=== PATIENT | male | born 1935 | race Caucasian/White ===

== ENCOUNTER 2016-05-01 18:43 | Inpatient (IN) | payer MEDICARE ==
[~2016-05-01] VITALS: Ht 177.8 cm; Wt 59.3 kg
[~2016-05-01 18:43] MED LIST: CIPR500T4 PO; CO Q100C9 PO; CYAN100017 PO; FLAG500T PO; HYDR12.56 PO; PROT40TA PO
[2016-05-01 18:53] VITALS: BP 151/97; PULSE 88; RESP 16; TEMP 97.6; O2SAT 100
[2016-05-01 20:16] VITALS: BP_SYST 197; BP_SYST 205; BP_DIAS 91; BP_DIAS 96; PULSE 77; RESP 18; TEMP 97.8; O2SAT 99
[2016-05-01] MEDS ORDERED: HYDR12.57 PO (20:29)
[2016-05-01] MEDS ORDERED: HYDR-3580 PO (20:29)
[2016-05-01] MEDS ORDERED: PANT20TA2 PO (20:29)
[2016-05-01] MEDS ORDERED: ONDANSETRON HCL 4 MG/2 ML VIAL IV PUSH ONE (20:30)
[2016-05-01] MEDS ORDERED: SODIUM CHLOR 0.9% 1000 ML INJ 1,000 ML IV SCH (20:30)
--- NOTE | 2016-05-01 20:34 | PD ---
HPI Chief Complaint: General Weakness Time Seen by Provider: 20:16 Travel History International Travel<30 days: No Contact w/Intl Traveler<30days: No Traveled to known affect area: No History of Present Illness HPI This 81-year-old male is complaining of feeling weak and lightheaded. He had some loose stools which stopped about 3 days ago he has not had a bowel movement since then. He has been here twice with GI bleeds in the past but has not noted any dark stool. He has had some nausea and has not been eating well. 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 His medications include hydrochlorothiazide, Protonix and Lortab for chronic back pain related to his myopathy. PFSH Past Medical History Arthritis: Yes Heart Rhythm Problems: Yes (PVC'S, "irregular once in a while" ) Cancer: No Cardiovascular Problems: Yes (htn on meds,) High Cholesterol: Yes Diabetes: Yes (diet control) Patient Takes Glucophage: No Diminished Hearing: Yes ([place]) Diverticulitis: Yes Endocrine: No Gastrointestinal Disorders: Yes (NOW GI BLEEDING and history of this) GERD: Yes Genitourinary: Yes (BPH, URETHERAL STRICTURES, incon of urein) Hiatal Hernia: No Hypertension: Yes Immune Disorder: No Implanted Vascular Access Dvce: No Musculoskeletal: No Neurologic: Yes (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) Psychiatric: No Reproductive: No Respiratory: No Immunizations Current: Yes Tetanus Vaccination: Unknown Influenza Vaccination: No Past Surgical History Ear Surgery: No Eye Surgery: Yes (CATARACTS) Genitourinary Surgery: Yes (TURP) Oral Surgery: No Pacemaker: No Tonsillectomy: Yes Other Surgery: Yes (COLONOSCOPY, pilonidal cyst removed) Social History Alcohol Use: Yes (2-3 MIXED DRINKS A WK +1-2 BEER WK) Tobacco Use: No (QUIT 1950- smoked 1 ppd) Substance Use: No Allergies-Medications (Allergen,Severity, Reaction): Coded Allergies: No Known Allergies (Unverified , 05/01/16) Reported Meds & Prescriptions Reported Meds & Active Scripts Active Reported Hydrocodone-Acetaminophen 7.5-325 mg Tab 1 Tab PO BID PRN Hydrochlorothiazide 12.5 Mg Cap 12.5 Mg PO DAILY Pantoprazole (Pantoprazole Sodium) 20 Mg Tab 20 Mg PO DAILY Review of Systems General / Constitutional: No: Fever, Chills Eyes: No: Diploplia, Blurred Vision HENT: Positive: Lightheadedness Cardiovascular: No: Chest Pain or Discomfort, Palpitations Respiratory: No: Cough, Shortness of Breath Gastrointestinal: No: Nausea, Diarrhea Genitourinary: No: Urgency, Frequency Musculoskeletal: Positive: Myalgias, No: Arthralgias Skin: No Rash Neurologic: Positive: Weakness, Dizziness, No: Syncope, Focal Abnormalities Endocrine: No: Heat Intolerance, Cold Intolerance Hematologic/Lymphatic: No: Easy Bruising Physical Exam Narrative GENERAL: Thin male SKIN: Warm and dry. HEAD: Atraumatic. Normocephalic. EYES: Pupils equal and round. No scleral icterus. No injection or drainage. ENT: No nasal bleeding or discharge. Mucous membranes pink and moist. NECK: Trachea midline. No JVD. CARDIOVASCULAR: Regular rate and rhythm. No murmur appreciated. RESPIRATORY: No accessory muscle use. Clear to auscultation. Breath sounds equal bilaterally. GASTROINTESTINAL: Abdomen soft, non-tender, nondistended. Hepatic and splenic margins not palpable. MUSCULOSKELETAL: No obvious deformities. No clubbing. No cyanosis. No edema. NEUROLOGICAL: Awake and alert. No obvious cranial nerve deficits. Motor grossly within normal limits. Normal speech. PSYCHIATRIC: Appropriate mood and affect; insight and judgment normal. Data Data Last Documented VS Vital Signs Date Time Temp Pulse Resp B/P Pulse Ox O2 Delivery O2 Flow Rate FiO2 05/01/16 20:55 81 16 194/95 97 Room Air 05/01/16 20:16 97.8 Orders Complete Blood Count With Diff (05/01/16 20:29) Comprehensive Metabolic Panel (05/01/16 20:29) Urinalysis - C+S If Indicated (05/01/16 20:29) Sodium Chlor 0.9% 1000 Ml Inj (Ns 1000 M (05/01/16 20:30) Ondansetron Inj (Zofran Inj) (05/01/16 20:30) Electrocardiogram (05/01/16 20:34) Potassium Chloride (Kcl) (05/01/16 22:30) Admit Order (Ed Use Only) (05/01/16 22:25) Labs Laboratory Tests Test 05/01/16 05/01/16 20:44 21:07 White Blood Count 8.1 TH/MM3 Red Blood Count 5.40 MIL/MM3 Hemoglobin 15.9 GM/DL Hematocrit 47.5 % Mean Corpuscular Volume 87.9 FL Mean Corpuscular Hemoglobin 29.5 PG Mean Corpuscular Hemoglobin 33.6 % Concent Red Cell Distribution Width 13.4 % Platelet Count 184 TH/MM3 Mean Platelet Volume 9.7 FL Neutrophils (%) (Auto) 76.4 % Lymphocytes (%) (Auto) 13.4 % Monocytes (%) (Auto) 8.9 % Eosinophils (%) (Auto) 0.5 % Basophils (%) (Auto) 0.8 % Neutrophils # (Auto) 6.2 TH/MM3 Lymphocytes # (Auto) 1.1 TH/MM3 Monocytes # (Auto) 0.7 TH/MM3 Eosinophils # (Auto) 0.0 TH/MM3 Basophils # (Auto) 0.1 TH/MM3 CBC Comment DIFF FINAL Differential Comment Sodium Level 123 MEQ/L Potassium Level 3.3 MEQ/L Chloride Level 84 MEQ/L Carbon Dioxide Level 28.3 MEQ/L Anion Gap 11 MEQ/L Blood Urea Nitrogen 14 MG/DL Creatinine 0.70 MG/DL Estimat Glomerular Filtration 108 ML/MIN Rate Random Glucose 134 MG/DL Calcium Level 8.6 MG/DL Total Bilirubin 0.8 MG/DL Aspartate Amino Transf 17 U/L (AST/SGOT) Alanine Aminotransferase 21 U/L (ALT/SGPT) Alkaline Phosphatase 66 U/L Total Protein 6.2 GM/DL Albumin 3.6 GM/DL [facility] Medical Decision Making Medical Screen Exam Complete: Yes Emergency Medical Condition: Yes Medical Record Reviewed: Yes Differential Diagnosis Differential includes electrolyte imbalance, dehydration, viral syndrome Narrative Course Lab work shows a sodium of 123, potassium is 3.3. He has been on some IV saline. He is on hydrochlorothiazide home and this certainly may be she ranges hyponatremia. He'll be admitted for further evaluation Diagnosis Primary Impression: Hyponatremia Admitting Information Admitting Physician Requests: Admit Jairo Galindo MD May 01, 2016 20:34
[2016-05-01 20:55] VITALS: BP 194/95; PULSE 81; RESP 16; O2SAT 97
[2016-05-01 20:59] LABS: AUTOMATED NEUTROPHIL # 6.2 TH/MM3 (1.8-7.7); BASOPHIL # 0.1 TH/MM3 (0-0.2); BASOPHIL % 0.8 % (0.0-2.0); EOSINOPHIL % 0.5 % (0.0-4.0); HEMATOCRIT 47.5 % (39.0-51.0); HEMO FLAGS DIFF FINAL; LYMPH % 13.4 % (9.0-44.0); LYMPHOCYTE # 1.1 TH/MM3 (1.0-4.8); MEAN CELL VOLUME 87.9 FL (80.0-100.0); MEAN CORPUSCULAR HEMOGLOBIN 29.5 PG (27.0-34.0); MEAN CORPUSCULAR HGB CONC 33.6 % (32.0-36.0); MONO % 8.9 % (0.0-8.0); NEUT % 76.4 % (16.0-70.0); PLATELET COUNT 184 TH/MM3 (150-450); RED CELL DISTRIBUTION WIDTH 13.4 % (11.6-17.2); WHITE BLOOD COUNT 8.1 TH/MM3 (4.0-11.0)
[2016-05-01 22:10] LABS: ALKALINE PHOSPHATASE 66 U/L (45-117); ALT (GPT) 21 U/L (12-78); ANION GAP 11 MEQ/L (5-15); AST (GOT) 17 U/L (15-37); BICARBONATE 28.3 MEQ/L (21.0-32.0); BLOOD UREA NITROGEN 14 MG/DL (7-18); CHLORIDE 84 MEQ/L (98-107); GLOMERULAR FILTRATION RATE 108 ML/MIN (>89); POTASSIUM 3.3 MEQ/L (3.5-5.1); TOTAL BILIRUBIN ADULT 0.8 MG/DL (0.2-1.0)
[2016-05-01 22:12] LABS: SODIUM (NA) 123 MEQ/L (136-145)
[2016-05-01 22:25] VITALS: BP 188/92; PULSE 88; RESP 16; O2SAT 95
[2016-05-01] MEDS ORDERED: POTASSIUM CHLORIDE 10 MEQ CONTROLLED RELEASE TAB PO ONE (22:30)
[2016-05-01 23:38] LABS: BLOOD, URINE TRACE (NEG); GLUCOSE,URINE 500 mg/dL (NEG); KETONE, URINE 15 mg/dL (NEG); NITRITE,URINE NEG (NEG)
[2016-05-01] MEDS ORDERED: NALOXONE HCL 0.4 MG/ML AMP IV PRN (23:45)
[2016-05-01] MEDS ORDERED: ACETAMINOPHEN 325 MG TAB PO PRN (23:45)
[2016-05-01] MEDS ORDERED: ONDANSETRON HCL 4 MG/2 ML VIAL IVP PRN (23:45)
[2016-05-01] MEDS ORDERED: MAGNESIUM HYDROXIDE SUSP 30 ML CUP PO PRN (23:45)
[2016-05-01] MEDS ORDERED: SENNOSIDES 8.6 MG TAB PO PRN (23:45)
[2016-05-01] MEDS ORDERED: SODIUM CHLORIDE 0.9% FLUSH 5 ML FLUSH FLUSH PRN (23:45)
[2016-05-01 23:54] LABS: URINE COLOR YELLOW (YELLW/STRAW)
[2016-05-01 23:56] LABS: MUCUS URINE OCC /lpf (OCC); RBC, URINE 0-3 /hpf (0-3); SQUAMOUS EPITHELIAL CELL URINE 0-5 /hpf (0-5); WBC, URINE 0-2 /hpf (0-5)
[2016-05-01 23:57] LABS: COMMENT (UR) CULT NOT INDICATED; CULTURE IF INDICATED CULT NOT INDICATED; HYALINE CAST, URINE 0-2 /lpf (RARE)
[2016-05-02] VITALS (10 sets, daily range): BP systolic 142–175; BP diastolic 72–93; PULSE 61–94; RESP 16–24; TEMP 96.8–98.2; O2SAT 95–99
[2016-05-02] MEDS: SODIUM CHLOR 0.9% 1000 ML INJ 1,000 ML IV SCH ×3 (00:39→21:01)
[2016-05-02 08:02] LABS: POTASSIUM 3.6 MEQ/L (3.5-5.1)
[2016-05-02] MEDS: ENOXAPARIN SODIUM 40 MG/0.4 ML SYRINGE SQ SCH (08:02)
[2016-05-02] MEDS: SODIUM CHLORIDE 0.9% FLUSH 5 ML FLUSH FLUSH SCH ×2 (08:02→20:59)
[2016-05-02 08:05] LABS: BICARBONATE 28.1 MEQ/L (21.0-32.0)
--- NOTE | 2016-05-02 08:47 | MH ---
cc: ANDRÉS SAMAYOA MD DATE OF ADMISSION: 05/01/2016 CHIEF COMPLAINT Generalized weakness. HISTORY OF PRESENT ILLNESS This is an 81-year-old male with past medical/surgical history significant for PVCs, hypertension, hyperlipidemia, hearing problem, GI bleed in the past, GERD, BPH, urethral stricture, hiatal hernia repair, colonoscopy, pilonidal cyst removed, transurethral resection of the prostate, cataract surgery and tonsillectomy, who came to the ER at [facility] complaining of generalized weakness and being lightheaded. He had some loose stools which stopped three days ago. He said that he had a GI bleed twice in the past and noted to have dark stool. He has some nausea and has not been eating well. He has a history of myopathy related to statin use. The patient at the time of examination denies any complaint. Nurse Katelyn was present in the room. Other than that nothing significant. PAST MEDICAL/SURGICAL HISTORY As dictated above. SOCIAL HISTORY He smoked about 10 years, quit in 1950. He smoked one pack a day. He drinks alcohol on a regular basis, 1-2 beers per week. Denies any drug abuse. Lives at home with his . He is retired. FAMILY HISTORY Nothing significant. ALLERGIES No known drug allergies. MEDICATIONS 1. Lortab 7.5/325 mg p.o. b.i.d. 2. Hydrochlorothiazide 12.5 mg p.o. daily. 3. Protonix 20 mg p.o. daily. REVIEW OF SYSTEMS Review of systems is positive for generalized weakness. All other review of systems is negative. PHYSICAL EXAMINATION GENERAL: This is a 81-year-old male lying on the bed, not in acute distress. VITAL SIGNS: Temperature 96.8, heart rate 71, respiration 24, blood pressure 167/93. O2 saturation 97% on room air. HEENT: Normocephalic, atraumatic. EOMI. PERRLA. Oral mucosa moist. NECK: Supple. No visible thyromegaly or neck mass. Trachea central. CV: Regular rate and rhythm. LUNGS: Respirations clear to auscultation bilaterally. ABDOMEN: Soft, nontender. Bowel sounds audible. EXTREMITIES: No cyanosis or clubbing. Full range of motion of all extremities. NEUROLOGIC: Awake, alert and oriented x4. No focal deficit. SKIN: Warm and dry. PSYCH: The patient is cooperative. Mood and affect normal. LABORATORY DATA CBC is unremarkable except for neutrophil percentage 76.4 high. BMP is unremarkable except for sodium 123 low, increased to 130 which is still low; potassium 3.3, now 3.6; chloride 84, now 91; glucose random 115 high. Total protein 6.2, otherwise LFTs are normal. Urine examination showed glucose in the urine, trace occult blood. ASSESSMENT AND PLAN 1. This is an 81-year male who came to the ER diagnosed with generalized weakness, most likely secondary to hyponatremia and hypokalemia. The patient's sodium is improving and also potassium normalized now. The patient feels better. Will monitor the patient. 2. History of hypertension. Continue home medication. 3. History of diabetes mellitus. Continue home medication. 4. History of hearing loss. 5. History of diverticulosis and diverticulitis in the past. 6. History of hiatal hernia status post repair. 7. History of cataract surgery. 8. Transurethral resection of prostate. 9. Colonoscopy. 10.Pilonidal cyst removal. 11.DVT prophylaxis with SCD. 12.GI prophylaxis with Protonix 40 mg p.o. daily. 13.We are going to manage the patient on a daily basis and make recommendation on a daily basis. Andrés Samayoa MD EA/PERLA /8:10 AM /8:25 AM
[2016-05-02] MEDS ORDERED: ACETAMINOPHEN/HYDROcodone 325 MG/7.5 MG TAB PO PRN (09:00)
[2016-05-02] MEDS: PANTOPRAZOLE SOD 20 MG DELAYED RELEASE TAB PO SCH (11:02)
[2016-05-02] MEDS: HYDROCHLOROTHIAZIDE 12.5 MG CAP PO SCH (11:02)
[2016-05-03] VITALS: BP 146/84; PULSE 67; RESP 16; TEMP 97; O2SAT 96
[2016-05-03 05:47] LABS: AUTOMATED NEUTROPHIL # 4.7 TH/MM3 (1.8-7.7); BASOPHIL % 0.4 % (0.0-2.0); EOSINOPHIL # 0.1 TH/MM3 (0-0.4); EOSINOPHIL % 1.2 % (0.0-4.0); HEMO FLAGS DIFF FINAL; LYMPH % 18.8 % (9.0-44.0); LYMPHOCYTE # 1.3 TH/MM3 (1.0-4.8); MEAN CELL VOLUME 88.7 FL (80.0-100.0); MEAN CORPUSCULAR HGB CONC 33.8 % (32.0-36.0); MONO % 10.1 % (0.0-8.0); NEUT % 69.5 % (16.0-70.0); PLATELET COUNT 141 TH/MM3 (150-450); RED BLOOD COUNT 4.96 MIL/MM3 (4.50-5.90); RED CELL DISTRIBUTION WIDTH 13.3 % (11.6-17.2); WHITE BLOOD COUNT 6.8 TH/MM3 (4.0-11.0)
[2016-05-03 05:54] LABS: CHLORIDE 97 MEQ/L (98-107); POTASSIUM 3.6 MEQ/L (3.5-5.1); SODIUM (NA) 135 MEQ/L (136-145)
[2016-05-03 06:00] LABS: ANION GAP 9 MEQ/L (5-15); BICARBONATE 29.3 MEQ/L (21.0-32.0); BLOOD UREA NITROGEN 12 MG/DL (7-18)
[2016-05-03 06:03] LABS: ALT (GPT) 19 U/L (12-78); AST (GOT) 17 U/L (15-37); GLOMERULAR FILTRATION RATE 115 ML/MIN (>89)
[2016-05-03 06:05] LABS: TOTAL BILIRUBIN ADULT 0.9 MG/DL (0.2-1.0)
[2016-05-03 06:06] LABS: ALKALINE PHOSPHATASE 63 U/L (45-117)
[2016-05-03] MEDS: SODIUM CHLOR 0.9% 1000 ML INJ 1,000 ML IV SCH (06:10)
--- NOTE | 2016-05-03 07:32 | HHI.PR ---
Subjective History of Present Illness Patient deny any complaints d/w RN Katie no acute issue. Review of Systems Constitutional Constitutional: Fatigue, Weakness Vitals/Results Intake & Output 05/02/16 05/02/16 05/03/16 15:00 23:00 07:00 Intake Total 2515 ml 997 ml Output Total 1600 ml 900 ml Balance 915 ml 97 ml Intake Oral 1080 ml 360 ml IV Total 1435 ml 637 ml Output Urine Total 1600 ml 900 ml # Bowel Movements 0 0 Vital Signs Vital Signs Date Time Temp Pulse Resp B/P Pulse Ox O2 Delivery O2 Flow Rate FiO2 05/03/16 00:00 97.0 67 16 146/84 96 05/02/16 20:00 98.2 62 18 151/87 97 05/02/16 16:25 98.1 79 19 142/84 96 05/02/16 12:38 97.0 68 17 169/75 99 05/02/16 08:28 97.3 94 18 165/72 98 CBC/BMP: 05/03/16 0516 05/03/16 0516 Lab Results Laboratory Tests Test 05/02/16 05/03/16 07:40 05:16 Sodium Level 130 MEQ/L 135 MEQ/L Potassium Level 3.6 MEQ/L 3.6 MEQ/L Chloride Level 91 MEQ/L 97 MEQ/L Carbon Dioxide Level 28.1 MEQ/L 29.3 MEQ/L Anion Gap 11 MEQ/L 9 MEQ/L Blood Urea Nitrogen 10 MG/DL 12 MG/DL Creatinine 0.71 MG/DL 0.66 MG/DL Estimat Glomerular Filtration 106 ML/MIN 115 ML/MIN Rate Random Glucose 115 MG/DL 100 MG/DL Calcium Level 8.8 MG/DL 8.3 MG/DL White Blood Count 6.8 TH/MM3 Red Blood Count 4.96 MIL/MM3 Hemoglobin 14.9 GM/DL Hematocrit 44.0 % Mean Corpuscular Volume 88.7 FL Mean Corpuscular Hemoglobin 30.0 PG Mean Corpuscular Hemoglobin 33.8 % Concent Red Cell Distribution Width 13.3 % Platelet Count 141 TH/MM3 Mean Platelet Volume 9.2 FL Neutrophils (%) (Auto) 69.5 % Lymphocytes (%) (Auto) 18.8 % Monocytes (%) (Auto) 10.1 % Eosinophils (%) (Auto) 1.2 % Basophils (%) (Auto) 0.4 % Neutrophils # (Auto) 4.7 TH/MM3 Lymphocytes # (Auto) 1.3 TH/MM3 Monocytes # (Auto) 0.7 TH/MM3 Eosinophils # (Auto) 0.1 TH/MM3 Basophils # (Auto) 0.0 TH/MM3 CBC Comment DIFF FINAL Differential Comment Total Bilirubin 0.9 MG/DL Aspartate Amino Transf 17 U/L (AST/SGOT) Alanine Aminotransferase 19 U/L (ALT/SGPT) Alkaline Phosphatase 63 U/L Total Protein 5.8 GM/DL Albumin 3.3 GM/DL Physical Exam General General Appearance: Well Developed, Well Nourished, No Acute Distress, Comfortable Eyes Eye Exam: Pupils Equal, Pupils Reactive, Sclera White, Extraocular Movement Intact Throat Throat Exam: Oral Mucosa [place] & Moist, Oral Pharynx Normal Neck Neck Exam: Neck Supple, Trachea Midline Pulmonary Resp Exam: Clear Bilaterally, Breath Sounds Equal, No Distress Cardiology CV Exam: Regular, Normal Sinus Rhythm Gastrointestinal/Abdomen GI Exam: Soft, Non-Tender, Bowel Sounds Present Musculoskeletal MS Exam: Normal Tone Integumentary Skin Exam: Clear, Warm, Dry, Intact, Normal Turgor Extremeties Extremities Exam: No Edema Neurologic Neuro Exam: Alert, Awake, Oriented, Speech Clear, Moving All Extremities, No Focal Deficits VTE Prophylaxis VTE Prophylaxis Device: SCDs PUD Prophylasis PUD Prophylaxis: Protonix Assessment/Plan Assessment/Plan ASSESSMENT AND PLAN 1. This is an 81-year male who came to the ER diagnosed with generalized weakness, most likely secondary to hyponatremia and hypokalemia. The patient's sodium is almost normal and also potassium normalized now. The patient feels better. Will monitor the patient. 2. History of hypertension. Continue home medication. 3. History of diabetes mellitus. Continue home medication. 4. History of hearing loss. 5. History of diverticulosis and diverticulitis in the past. 6. History of hiatal hernia status post repair. 7. History of cataract surgery. 8. Transurethral resection of prostate. 9. Colonoscopy. 10.Pilonidal cyst removal. 11.DVT prophylaxis with SCD. 12.GI prophylaxis with Protonix 40 mg p.o. daily. ok to dc home today. f/u with PCP 1 week. condition at discharge good activity as tolerated. diet cardiac. medicine see discharge medicine list. Discussed Condition with: Patient Andrés Zuñiga MD May 03, 2016 07:32
[2016-05-03 08:00] VITALS: BP 156/80; PULSE 63; RESP 20; TEMP 96.4; O2SAT 97
[2016-05-03] MEDS: SODIUM CHLORIDE 0.9% FLUSH 5 ML FLUSH FLUSH SCH (08:46)
[2016-05-03] MEDS: ENOXAPARIN SODIUM 40 MG/0.4 ML SYRINGE SQ SCH (08:46)
[2016-05-03] MEDS: HYDROCHLOROTHIAZIDE 12.5 MG CAP PO SCH (08:46)
[2016-05-03] MEDS: PANTOPRAZOLE SOD 20 MG DELAYED RELEASE TAB PO SCH (08:46)
--- NOTE | 2016-05-08 14:44 | EKG ---
Date Performed: 05/01/2016 Time Performed: 20:42:06 PTAGE: 81 years EKG: Sinus rhythm with PVC(s) IV conduction defect Inferior infarct - age undetermined Compared to prior tracing no si gnificant change Abnormal ECG PREVIOUS TRACING : 10/29/2014 19.22 DOCTOR: Florencio Horowitz Interpretating Date/Time 05/08/2016 14:43:32
[2016-07-07] MEDS ORDERED: HYDR-3580 PO (11:32)
[2016-07-25] MEDS ORDERED: HYDR-3580 PO (07:14)
[2016-08-04] MEDS ORDERED: PANT20TA2 PO (16:30)
[2016-08-10] MEDS ORDERED: HYDR-3583 PO (16:06)
[2016-08-10] MEDS ORDERED: BLOOD GLUCOSE T1 TES (16:14)
[2016-08-31] MEDS ORDERED: HYDR-3583 PO (14:02)
== END 2016-05-03 11:45 | disposition home or self-care (01) | DRG 641 ==
LOC: PHED 18:43 → PHEDA 22:26 → PHEDH 05-02 02:26 → PH3A 05-02 05:48
PROVIDERS: ADMIT Family Medicine; ATTEND Family Medicine
DX: E87.1 Hypo-osmolality and hyponatremia (principal); E11.9 Type 2 diabetes mellitus without complications; I10 Essential (primary) hypertension; E87.6 Hypokalemia; G89.29 Other chronic pain; M54.9 Dorsalgia, unspecified; M19.90 Unspecified osteoarthritis, unspecified site; E78.00 Pure hypercholesterolemia, unspecified; H91.90 Unspecified hearing loss, unspecified ear; K21.9 Gastro-esophageal reflux disease without esophagitis; N40.0 Benign prostatic hyperplasia without lower urinary tract symptoms; Z87.891 Personal history of nicotine dependence; E78.5 Hyperlipidemia, unspecified
CPT/HCPCS: 80048; 80053; 81001; 85025; 93005; 96361; 96374; J1650; J2405; J7030

== ENCOUNTER 2016-07-17 09:24 | Emergency (ER) | payer MEDICARE ==
[~2016-07-17] VITALS: Ht 177.8 cm; Wt 61.0 kg
[~2016-07-17 09:24] MED LIST changes: -CIPR500T4 PO; -CO Q100C9 PO; -CYAN100017 PO; -FLAG500T PO; +HYDR-3580 PO; -HYDR12.56 PO; +HYDR12.57 PO; +PANT20TA2 PO; -PROT40TA PO
[2016-07-17 09:30] VITALS: BP 148/102; PULSE 93; RESP 16; TEMP 97.7; O2SAT 99
--- NOTE | 2016-07-17 10:01 | PD ---
HPI Chief Complaint: Complaint Time Seen by Provider: 09:59 Travel History International Travel<30 days: No Contact w/Intl Traveler<30days: No Traveled to known affect area: No History of Present Illness HPI This patient has long-standing history of urethral stricture. He gets urethral dilations about every 6 months, the last time he had it was May 2016. He is able to urinate but has to force out the urine. No hematuria or pain. Patient came here out of frustration because he is awaiting a urology referral that hasn't happened. He has a referral to a urologist Dr. Barragan. Symptoms severity is moderate. PFSH Past Medical History Arthritis: Yes Heart Rhythm Problems: Yes (PVC'S) Cancer: No Cardiovascular Problems: Yes (htn on meds,) High Cholesterol: Yes Diabetes: Yes (diet control) Patient Takes Glucophage: No Diminished Hearing: [place] ([place]) Diverticulitis: Yes Endocrine: No GERD: Yes Genitourinary: Yes (BPH, URETHERAL STRICTURES) Hiatal Hernia: No Hypertension: Yes Immune Disorder: No Implanted Vascular Access Dvce: No Musculoskeletal: No Neurologic: Yes (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) Psychiatric: No Reproductive: No Respiratory: No Immunizations Current: Yes Past Surgical History Ear Surgery: No Eye Surgery: Yes (CATARACTS) Genitourinary Surgery: Yes (TURP) Oral Surgery: No Pacemaker: No Tonsillectomy: Yes Other Surgery: Yes (COLONOSCOPY, pilonidal cyst removed) Social History Alcohol Use: Yes (OCC) Tobacco Use: No (QUIT 1950- smoked 1 ppd) Substance Use: No Allergies-Medications (Allergen,Severity, Reaction): Coded Allergies: No Known Allergies (Unverified , 07/17/16) Reported Meds & Prescriptions Reported Meds & Active Scripts Active Hydrocodone-Acetaminophen 7.5-325 mg Tab 1 Tab PO BID PRN Reported Hydrochlorothiazide 12.5 Mg Cap 12.5 Mg PO DIRECTED Pantoprazole (Pantoprazole Sodium) 20 Mg Tab 20 Mg PO DAILY Review of Systems General / Constitutional: No: Fever HENT: No: Headaches Cardiovascular: No: Chest Pain or Discomfort Respiratory: No: Cough Physical Exam Narrative GASTROINTESTINAL: Abdomen soft, non-tender, nondistended. Positive bowel sounds. No hepato-splenomegaly, or palpable masses. No guarding. I don't sense distention in the suprapubic region SKIN: Focused skin assessment reveals no rash or ulcers. Skin is warm and dry. Palpation shows no induration or nodules. Psych: Normal mood and affect. Normal insight and judgment. Data Data Last Documented VS Vital Signs Date Time Temp Pulse Resp B/P Pulse Ox O2 Delivery O2 Flow Rate FiO2 07/17/16 09:30 97.7 93 16 148/102 99 MDM Medical Decision Making Medical Screen Exam Complete: Yes Emergency Medical Condition: Yes Medical Record Reviewed: Yes Differential Diagnosis Urethral stricture, urinary retention, bladder CA Narrative Course I have reviewed the patient's electronic medical record. He brought a lot of paper medical records which I reviewed his well including urethral dilation records from October 2015 Bladder scan reveals 197 mL of urine He is not have urinary retention. He is able to produce a strain but it is weak and he has to force it out but this is not unusual for him Patient should call his primary physician today and ask about the urology referral. He should also call the urologist and find out if he can be seen. Diagnosis Primary Impression: Urethral stricture Qualified Code: N35.9 - Urethral stricture, unspecified stricture type Additional Instructions: Call primary care and urologist to figure out when he can be seen by them Med/Other Pt SpecificInfo: Other Disposition: 01 DISCHARGE HOME Condition: Stable Jorgito Mckinney MD July 17, 2016 10:01
[2016-07-25] MEDS ORDERED: HYDR-3580 PO (07:14)
[2016-08-04] MEDS ORDERED: PANT20TA2 PO (16:30)
[2016-08-10] MEDS ORDERED: HYDR-3583 PO (16:06)
[2016-08-10] MEDS ORDERED: BLOOD GLUCOSE T1 TES (16:14)
[2016-08-31] MEDS ORDERED: HYDR-3583 PO (14:02)
== END 2016-07-17 10:41 | disposition home or self-care (01) ==
LOC: PHED 09:24
DX: N35.9 Urethral stricture, unspecified (principal); M19.90 Unspecified osteoarthritis, unspecified site; I10 Essential (primary) hypertension; K21.9 Gastro-esophageal reflux disease without esophagitis; E78.00 Pure hypercholesterolemia, unspecified; E11.9 Type 2 diabetes mellitus without complications; Z79.899 Other long term (current) drug therapy; Z87.891 Personal history of nicotine dependence
CPT/HCPCS: 99283

== ENCOUNTER 2016-08-23 12:12 | Inpatient (IN) | payer MEDICARE ==
[2016-08-23] VITALS (8 sets, daily range): BP systolic 119–177; BP diastolic 62–96; PULSE 73–140; RESP 16–18; TEMP 98–101.2; O2SAT 94–98
[~2016-08-23] VITALS: Ht 167.6 cm; Wt 61.0 kg
[~2016-08-23 12:12] MED LIST changes: +BLOOD GLUCOSE T1 TES; -HYDR-3580 PO; +HYDR-3583 PO
[2016-08-23] MEDS ORDERED: PIPERACIL-TAZO 4.5 GM PREMIX 100 ML IV STA (12:27)
[2016-08-23] MEDS ORDERED: ACETAMINOPHEN 325 MG TAB PO ONE (12:30)
[2016-08-23] MEDS ORDERED: SODIUM CHLOR 0.9% 1000 ML INJ 1,000 ML IV ONE ×2 (12:30→13:30)
[2016-08-23] MEDS ORDERED: VANCOMYCIN INJ 1,000 MG in SODIUM CHLOR 0.9% 250 ML INJ 250 ML IV STA (12:31)
--- NOTE | 2016-08-23 12:42 | PD ---
HPI Chief Complaint: Altered Mental Status Time Seen by Provider: 12:19 Travel History International Travel<30 days: No Contact w/Intl Traveler<30days: No Traveled to known affect area: No History of Present Illness HPI This 81-year-old male is brought in because of a shaking chill. He has a history of a urethral stricture. He had cystoscopy and his stricture dilated Sunday. Earlier today he started having a shaking chill. He developed fever. He has not been coughing. He has a history of GI bleed 2. He has weakness in his legs from statin use. He has chronic back pain. He has no history of heart disease. PFSH Past Medical History Arthritis: Yes Heart Rhythm Problems: Yes (PVC'S) Cancer: No Cardiovascular Problems: Yes (htn on meds,) High Cholesterol: Yes Diabetes: Yes (Borderline ) Diminished Hearing: Yes ([place]) Diverticulitis: Yes Endocrine: No GERD: Yes Genitourinary: Yes (BPH, URETHERAL STRICTURES) Hiatal Hernia: No Hypertension: Yes Immune Disorder: No Implanted Vascular Access Dvce: No Musculoskeletal: No Neurologic: Yes (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) Psychiatric: No Reproductive: No Respiratory: No Immunizations Current: Yes Past Surgical History Ear Surgery: No Eye Surgery: Yes (CATARACTS) Genitourinary Surgery: Yes (TURP) Oral Surgery: No Pacemaker: No Tonsillectomy: Yes Other Surgery: Yes (COLONOSCOPY, pilonidal cyst removed) Social History Alcohol Use: Yes (OCC) Tobacco Use: No (QUIT 1950- smoked 1 ppd) Substance Use: No Allergies-Medications (Allergen,Severity, Reaction): Coded Allergies: No Known Allergies (Unverified , 08/23/16) Reported Meds & Prescriptions Reported Meds & Active Scripts Active Blood Glucose Test Strips Strips Strip 1 Ea .ROUTE DIRECTED Hydrocodone-Acetaminophen 10-325 mg Tab 1 Tab PO BID PRN Pantoprazole (Pantoprazole Sodium) 20 Mg Tab 20 Mg PO DAILY Reported Hydrochlorothiazide 12.5 Mg Cap 12.5 Mg PO DIRECTED Review of Systems General / Constitutional: Positive: Fever, Chills Eyes: No: Diploplia, Blurred Vision HENT: No: Headaches, Vertigo Cardiovascular: No: Chest Pain or Discomfort, Palpitations Respiratory: No: Cough, Shortness of Breath Gastrointestinal: No: Nausea, Vomiting Genitourinary: Positive: Dysuria Musculoskeletal: No: Myalgias, Arthralgias Skin: No Rash Neurologic: Positive: Weakness Psychiatric: No: Anxiety Endocrine: No: Heat Intolerance Hematologic/Lymphatic: No: Easy Bruising Physical Exam Exam Limitations: Psychotic Narrative GENERAL: Well-developed male. Temp is 101.2. Heart rate 140 SKIN: Focused skin assessment warm/dry. HEAD: Atraumatic. Normocephalic. EYES: Pupils equal and round. No scleral icterus. No injection or drainage. ENT: No nasal bleeding or discharge. Mucous membranes pink and moist. NECK: Trachea midline. No JVD. CARDIOVASCULAR: Rapid Regular rate and rhythm. No murmur appreciated. RESPIRATORY: No accessory muscle use. Clear to auscultation. Breath sounds equal bilaterally. GASTROINTESTINAL: Abdomen soft, non-tender, nondistended. Hepatic and splenic margins not palpable. There is some suprapubic distention MUSCULOSKELETAL: No obvious deformities. No clubbing. No cyanosis. No edema. NEUROLOGICAL: Awake and alert. No obvious cranial nerve deficits. Motor grossly within normal limits. Normal speech. PSYCHIATRIC: Appropriate mood and affect; insight and judgment normal. Data Data Last Documented VS Vital Signs Date Time Temp Pulse Resp B/P Pulse Ox O2 Delivery O2 Flow Rate FiO2 08/23/16 13:45 99.1 08/23/16 13:30 90 18 123/69 95 Room Air Orders Complete Blood Count With Diff (08/23/16 12:27) Comprehensive Metabolic Panel (08/23/16 12:27) Lactic Acid Sepsis Protocol (08/23/16 12:27) Urinalysis - C+S If Indicated (08/23/16 12:27) Blood Culture (08/23/16 12:27) Chest, Single Ap (08/23/16 12:27) Blood Glucose (08/23/16 12:27) Ecg Monitoring (08/23/16 12:27) Iv Access Insert/Monitor (08/23/16 12:27) Oximetry (08/23/16 12:27) Oxygen Administration (08/23/16 12:27) Piperacil-Tazo 4.5 Gm Premix (Zosyn 4.5 (08/23/16 12:27) Sodium Chlor 0.9% 1000 Ml Inj (Ns 1000 M (08/23/16 12:30) Acetaminophen (Tylenol) (08/23/16 12:30) Vancomycin Inj (Vancomycin Inj) (08/23/16 12:31) Urinary Catheter Insert/Apply (08/23/16 12:45) Urine Culture (08/23/16 12:35) Sodium Chlor 0.9% 1000 Ml Inj (Ns 1000 M (08/23/16 13:30) Labs Laboratory Tests Test 08/23/16 08/23/16 12:30 12:35 White Blood Count 8.7 TH/MM3 Red Blood Count 4.95 MIL/MM3 Hemoglobin 15.0 GM/DL Hematocrit 43.9 % Mean Corpuscular Volume 88.8 FL Mean Corpuscular Hemoglobin 30.4 PG Mean Corpuscular Hemoglobin 34.2 % Concent Red Cell Distribution Width 12.8 % Platelet Count 114 TH/MM3 Mean Platelet Volume 9.0 FL Neutrophils (%) (Auto) 89.1 % Lymphocytes (%) (Auto) 9.2 % Monocytes (%) (Auto) 1.4 % Eosinophils (%) (Auto) 0.1 % Basophils (%) (Auto) 0.2 % Neutrophils # (Auto) 7.8 TH/MM3 Lymphocytes # (Auto) 0.8 TH/MM3 Monocytes # (Auto) 0.1 TH/MM3 Eosinophils # (Auto) 0.0 TH/MM3 Basophils # (Auto) 0.0 TH/MM3 CBC Comment DIFF FINAL Differential Comment Sodium Level 134 MEQ/L Potassium Level 3.7 MEQ/L Chloride Level 95 MEQ/L Carbon Dioxide Level 28.6 MEQ/L Anion Gap 10 MEQ/L Blood Urea Nitrogen 15 MG/DL Creatinine 0.81 MG/DL Estimat Glomerular Filtration 91 ML/MIN Rate Random Glucose 159 MG/DL Lactic Acid Level 2.9 mmol/L Calcium Level 9.0 MG/DL Total Bilirubin 1.0 MG/DL Aspartate Amino Transf 22 U/L (AST/SGOT) Alanine Aminotransferase 16 U/L (ALT/SGPT) Alkaline Phosphatase 84 U/L Total Protein 6.9 GM/DL Albumin 4.0 GM/DL Urine Collection Type CATH Urine Color YELLOW Urine Turbidity MOD Urine pH 6.0 Urine Specific [place] 1.018 Urine Protein 30 mg/dL Urine Glucose (UA) 1000 OR GREATER mg/dL Urine Ketones 15 mg/dL Urine Occult Blood LARGE Urine Nitrite NEG Urine Bilirubin NEG Urine Leukocyte Esterase TRACE Urine RBC 50-99 /hpf Urine WBC 25-49 /hpf Urine WBC Clumps FEW Urine Bacteria MANY /hpf Microscopic Urinalysis Comment CULTURE INDICATED MDM Medical Decision Making Medical Screen Exam Complete: Yes Emergency Medical Condition: Yes Medical Record Reviewed: Yes Differential Diagnosis Differential includes pneumonia, UTI, sepsis Narrative Course Urine does show infection. Lactate is elevated at 2.9. White count is normal. Case discussed with Dr. Almanza who recommends leaving the catheter in overnight. He will be admitted Sepsis Criteria SIRS Criteria (2 or more): Temp > 100.9 or < 96.8, Heart rate over 90 Sepsis Criteria (SIRS+source): Infect source susp/known Severe Sepsis (+one): Lactate >2 Diagnosis Primary Impression: Urinary tract infection Qualified Code: N39.0 - Urinary tract infection without hematuria, site unspecified Additional Impression: Sepsis Qualified Code: A41.9 - Sepsis, due to unspecified organism Admitting Information Admitting Physician Requests: Admit Jairo Galindo MD Aug 23, 2016 12:42
[2016-08-23 12:48] LABS: AUTOMATED NEUTROPHIL # 7.8 TH/MM3 (1.8-7.7); BASOPHIL % 0.2 % (0.0-2.0); EOSINOPHIL % 0.1 % (0.0-4.0); HEMATOCRIT 43.9 % (39.0-51.0); HEMO FLAGS DIFF FINAL; LYMPH % 9.2 % (9.0-44.0); LYMPHOCYTE # 0.8 TH/MM3 (1.0-4.8); MEAN CELL VOLUME 88.8 FL (80.0-100.0); MEAN CORPUSCULAR HEMOGLOBIN 30.4 PG (27.0-34.0); MEAN CORPUSCULAR HGB CONC 34.2 % (32.0-36.0); MONO % 1.4 % (0.0-8.0); NEUT % 89.1 % (16.0-70.0); PLATELET COUNT 114 TH/MM3 (150-450); RED BLOOD COUNT 4.95 MIL/MM3 (4.50-5.90); RED CELL DISTRIBUTION WIDTH 12.8 % (11.6-17.2); WHITE BLOOD COUNT 8.7 TH/MM3 (4.0-11.0)
[2016-08-23 12:53] LABS: BLOOD, URINE LARGE (NEG); KETONE, URINE 15 mg/dL (NEG); NITRITE,URINE NEG (NEG)
[2016-08-23 12:56] LABS: CHLORIDE 95 MEQ/L (98-107); POTASSIUM 3.7 MEQ/L (3.5-5.1); SODIUM (NA) 134 MEQ/L (136-145)
[2016-08-23 13:00] LABS: ANION GAP 10 MEQ/L (5-15); BICARBONATE 28.6 MEQ/L (21.0-32.0); BLOOD UREA NITROGEN 15 MG/DL (7-18)
[2016-08-23 13:02] LABS: GLUCOSE,URINE 1000 OR GREATER mg/dL (NEG)
--- NOTE | 2016-08-23 13:02 | RADRPT ---
EXAM DATE/TIME: 08/23/2016 12:47 [facility] COMPARISON: No previous studies available for comparison. INDICATIONS : Fever, chills, post cystoscopy 3 days ago. MEDICAL HISTORY : Hypertension. Hypercholesterolemia. Gastrointestinal bleed. Diverticulitis. Diabetic. Arthritis. SURGICAL HISTORY : Tonsillectomy. Cystoscopy & urethreal dilitation. ENCOUNTER: Initial ACUITY: 1 day PAIN SCORE: 0/10 LOCATION: chest FINDINGS: A single view of the chest demonstrates the lungs to be symmetrically aerated without evidence of mas s, infiltrate or effusion. The cardiomediastinal contours are unremarkable. Osseous structures are intact. CONCLUSION: 1. No acute cardiopulmonary disease. Amilcar Lozano MD on August 23, 2016 at 12:58 Board Certified Radiologist. This report was verified electronically.
[2016-08-23 13:03] LABS: ALT (GPT) 16 U/L (12-78); AST (GOT) 22 U/L (15-37); GLOMERULAR FILTRATION RATE 91 ML/MIN (>89)
[2016-08-23 13:06] LABS: ALKALINE PHOSPHATASE 84 U/L (45-117)
[2016-08-23 13:06] LABS: METHOD OF COLLECTION CATH; URINE COLOR YELLOW (YELLW/STRAW)
[2016-08-23 13:07] LABS: BACTERIA, URINE MANY /hpf; COMMENT (UR) CULTURE INDICATED; CULTURE IF INDICATED CULTURE INDICATED
[2016-08-23] MEDS: SODIUM CHLOR 0.9% 1000 ML INJ 1,000 ML IV SCH (14:06)
[2016-08-23] MEDS ORDERED: ONDANSETRON HCL 4 MG/2 ML VIAL IVP PRN (14:15)
[2016-08-23] MEDS ORDERED: NALOXONE HCL 0.4 MG/ML AMP IV PRN (14:15)
[2016-08-23] MEDS ORDERED: ACETAMINOPHEN 325 MG TAB PO PRN ×2 (14:15)
[2016-08-23] MEDS ORDERED: SODIUM CHLORIDE 0.9% FLUSH 10 ML FLUSH IV FLUSH PRN (14:15)
[2016-08-23] MEDS ORDERED: MAGNESIUM HYDROXIDE SUSP 30 ML CUP PO PRN (14:15)
[2016-08-23] MEDS ORDERED: ENALAPRILAT 2.5 MG/2 ML VIAL IV PUSH PRN (14:15)
[2016-08-23] MEDS ORDERED: RESP: ALBUTEROL 2.5 MG/IPRATROPIUM 0.5 MG NEB (PRN) NEB (14:30)
[2016-08-23 14:43] LABS: LACTIC ACID GHOST NOT REPORTABLE
--- NOTE | 2016-08-23 14:43 | HHI.HP ---
[facility] Service [facility] Primary Care Physician Ever Harding MD Admission Diagnosis UTI, SEPSIS Diagnoses: (1) Severe sepsis Diagnosis: Principal (2) Complicated urinary tract infection Diagnosis: Principal (3) Lactic acid acidosis Diagnosis: Principal Chief Complaint: Fever and rigors Travel History International Travel<30 Days: No Contact w/Intl Traveler <30 Da: No Traveled to Known Affected Are: No Sepsis Criteria SIRS Criteria (2 or more): Temp > 100.9 or < 96.8, Heart rate over 90 Sepsis Criteria (SIRS+source): Infect source susp/known Severe Sepsis (+one): Lactate >2 Criteria Outcome: Meets severe sepsis criteria History of Present Illness Written by Jorgito Bowling, acting as scribe for Dr. Hutchison on 08/23/16 at 15: 01. 81 year-old male with known history of hypertension, hyperlipidemia, diet-controlled diabetes, urethral stenosis, gastroesophageal reflux who presented to the hospital because of fever and rigors. Patient is in normal state of health when he went and had urological procedure done on Sunday to include cystoscopy with urethral dilatation. As indicated that this was his 6 time having this procedure done. stated that he only had to have mild stricture release and was discharged home without a So this time. Patient had been doing well with urinating. He has not had any significant dysuria, hesitancy, he has had a good stream. This morning he woke up and had a fever and had rigors. They contacted their urology office and notified them that they were going to the hospital for evaluation. Patient had workup performed in emergency department found to have severe sepsis by criteria secondary to complicated urinary tract infection. Is recommended that patient be admitted for further evaluation management. At the time evaluating the patient he states that he is feeling much better already since he's gotten IV antibiotics and IV fluids. They are anticipating going home tomorrow if he continues to improve. Review of Systems Constitutional: COMPLAINS OF: Fever, Chills, DENIES: Diaphoretic episodes, Fatigue, Weight gain, Weight loss, Dizziness, Change in appetite, Night Sweats Endocrine: DENIES: Heat/cold intolerance, Polydipsia, Polyuria, Polyphagia Eyes: DENIES: Blurred vision, Diplopia, Eye inflammation, Eye pain, Vision loss , Double Vision Ears, nose, mouth, throat: DENIES: Vertigo, Nasal discharge, Throat pain, Ear Pain, Running Nose, Sinus Pain Respiratory: DENIES: Apneas, Cough, Snoring, Wheezing, Hemoptysis, Sputum production, Shortness of breath Cardiovascular: COMPLAINS OF: PND, DENIES: Chest pain, Palpitations, Syncope, Dyspnea on Exertion, Lower Extremity Edema, Orthopnea Gastrointestinal: DENIES: Abdominal pain, Black stools, Bloody stools, Constipation, Diarrhea, Nausea, Vomiting, Difficulty Swallowing, Anorexia Genitourinary: DENIES: Sexual dysfunction, Urinary frequency, Urinary incontinence, Urgency, Hematuria, Dysuria, Nocturia, Penile Discharge, Testicular Pain, Testicular Swelling Musculoskeletal: DENIES: Joint pain, Muscle aches, Stiffness, Joint Swelling, Back pain, Neck pain Integumentary: DENIES: Abnormal pigmentation, Nail changes, Pruritus, Rash Hematologic/lymphatic: DENIES: Bruising, Lymphadenopathy Immunologic/allergic: DENIES: Eczema, Urticaria Neurologic: DENIES: Abnormal gait, Headache, Localized weakness, Paresthesias, Seizures, Speech Problems, Tremor, Poor Balance Psychiatric: DENIES: Anxiety, Confusion, Mood changes, Depression, Hallucinations, Agitation, Suicidal Ideation, Homicidal Ideation, Delusions Past Family Social History Past Medical History Hypertension Hyperlipidemia Diabetes Benign prostatic hypertrophy Chronic back pain History of Lyme's disease Gastroesophageal reflux History GI bleed Past Surgical History Tonsillectomy Recent cystoscopy with urethral dilatation TURP Circumcision EGD Reported Medications Reported Meds & Active Scripts Active Blood Glucose Test Strips Strips Strip 1 Ea .ROUTE DIRECTED Hydrocodone-Acetaminophen 10-325 mg Tab 1 Tab PO BID PRN Pantoprazole (Pantoprazole Sodium) 20 Mg Tab 20 Mg PO DAILY Reported Hydrochlorothiazide 12.5 Mg Cap 12.5 Mg PO DIRECTED Allergies: Coded Allergies: No Known Allergies (Unverified , 08/23/16) Family History Reviewed and unknown due to parents when he was early age Social History Patient quit smoking in 1950, prior to that he smoked 3 pack a cigarettes a day for 35 years while he was in the . He drinks alcohol rarely. Denies any illicit drugs Physical Exam Vital Signs Vital Signs Date Time Temp Pulse Resp B/P Pulse Ox O2 Delivery O2 Flow Rate FiO2 08/23/16 14:35 82 16 119/62 96 Room Air 08/23/16 13:45 99.1 08/23/16 13:30 90 18 123/69 95 Room Air 08/23/16 13:00 101.2 105 16 177/96 94 Room Air 08/23/16 12:43 177/96 08/23/16 12:43 94 Room Air 08/23/16 12:43 125 94 Room Air 08/23/16 12:13 101.2 140 18 96 Physical Exam GENERAL: Well-developed, well-nourished, in no acute distress. alert and orientated HEENT: Head is normocephalic without any lesions or masses noted. Facial features are symmetric. Eyes: Pupils equal round reactive to light. Extraocular muscles are intact. Conjunctivae were clear. Oropharyngeal: Pharynx without any erythema edema. Tongue is midline without deviation. Buccal mucosa is moist without any masses or lesions NECK: Supple without any masses. Trachea midline no deviation. No JVD, no bruits are appreciated CARDIAC: Regular rhythm, regular rate. S1/S2 are heard. 2 or 6 ejection murmur , no gallops or rubs. LUNGS: Clear to auscultation bilaterally. No wheeze, rhonchi or rales. No use of accessory muscles on inspiration or expiration. ABDOMEN: Soft, nontender. Nondistended. Bowel sounds heard in all 4 quadrants. No organomegaly or masses. Negative rebound, negative guarding, So in place with dark color urine EXTREMITIES: No edema, pulses are equal bilaterally. No cyanosis or clubbing NEUROLOGY: Mood and affect appear appropriate. Cranial nerves II through XII grossly intact. Muscle strength 5/5 in upper and lower extremities bilaterally. Deep tendon reflexes are 2+ in upper and lower extremities bilaterally. Laboratory Laboratory Tests Test 08/23/16 08/23/16 12:30 12:35 White Blood Count 8.7 Red Blood Count 4.95 Hemoglobin 15.0 Hematocrit 43.9 Mean Corpuscular Volume 88.8 Mean Corpuscular Hemoglobin 30.4 Mean Corpuscular Hemoglobin 34.2 Concent Red Cell Distribution Width 12.8 Platelet Count 114 Mean Platelet Volume 9.0 Neutrophils (%) (Auto) 89.1 Lymphocytes (%) (Auto) 9.2 Monocytes (%) (Auto) 1.4 Eosinophils (%) (Auto) 0.1 Basophils (%) (Auto) 0.2 Neutrophils # (Auto) 7.8 Lymphocytes # (Auto) 0.8 Monocytes # (Auto) 0.1 Eosinophils # (Auto) 0.0 Basophils # (Auto) 0.0 CBC Comment DIFF FINAL Differential Comment Sodium Level 134 Potassium Level 3.7 Chloride Level 95 Carbon Dioxide Level 28.6 Anion Gap 10 Blood Urea Nitrogen 15 Creatinine 0.81 Estimat Glomerular Filtration 91 Rate Random Glucose 159 Lactic Acid Level 2.9 Calcium Level 9.0 Total Bilirubin 1.0 Aspartate Amino Transf 22 (AST/SGOT) Alanine Aminotransferase 16 (ALT/SGPT) Alkaline Phosphatase 84 Total Protein 6.9 Albumin 4.0 Urine Collection Type CATH Urine Color YELLOW Urine Turbidity MOD Urine pH 6.0 Urine Specific [place] 1.018 Urine Protein 30 Urine Glucose (UA) 1000 OR GREATER Urine Ketones 15 Urine Occult Blood LARGE Urine Nitrite NEG Urine Bilirubin NEG Urine Leukocyte Esterase TRACE Urine RBC 50-99 Urine WBC 25-49 Urine WBC Clumps FEW Urine Bacteria MANY Microscopic Urinalysis Comment CULTURE INDICATED Date/Time Procedure Status Source Growth 08/23/16 12:35 Urine Culture Received Urine Catheterized Urine Pending 08/23/16 12:35 Aerobic Blood Culture Received Blood Peripheral Pending 08/23/16 12:35 Anaerobic Blood Culture Received Blood Peripheral Pending Result Diagram: 08/23/16 1230 08/23/16 1230 Imaging Last Impressions Chest X-Ray 08/23/16 1227 Signed Impressions: Service Date/Time: Tuesday, August 23, 2016 12:47 - CONCLUSION: 1. No acute cardiopulmonary disease. Amilcar Lozano MD Septic Shock Reassessment Heart: Regular rate and rhythm Lungs: Clear Skin: Warm, Moist Peripheral Pulses: Bounding Right Radial Bounding Left Radial Capillary Refill: Brisk, <2 seconds Assessment and Plan Problem List: (1) Severe sepsis ICD Code: A41.9 Status: Acute (2) Complicated urinary tract infection ICD Code: N39.0 Status: Acute (3) Lactic acid acidosis ICD Code: E87.2 Status: Acute Assessment and Plan 81-year-old man with Severe sepsis Patient meets criteria on admission with fever, tachycardia, complicated urinary tract infection, lactic acid acidosis Patient started on Zosyn empirically Blood cultures and urine culture are pending Continue trend lactic acid level Complicated urinary tract infection, secondary to recent urological procedure with urethral dilatation Continue antibiotics as above ER physician discussed with urology who recommended to maintain So in place Follow-up with urology in outpatient setting Hypertension Home medications have been continued As needed clonidine and Vasotec Diabetes, diet controlled Continue monitor glucoses start sliding scale insulin if needed DVT prevention Sequential compression devices This note was transcribed by yolanda Bowling. I, Dr. Saúl Hutchison personally performed the history, physical exam, and medical decision making; and confirmed the accuracy of the information in the transcribed note. Authenticated by Dr. Saúl Hutchison on 08/23/16 at 15:01. Code Status Full code Discussed Condition With Patient, ED physician Physician Certification 2 Midnight Certification Type: Admission for Inpatient Services Order for Inpatient Services The services are ordered in accordance with Medicare regulations or non- Medicare payer requirements, as applicable. In the case of services not specified as inpatient-only, they are appropriately provided as inpatient services in accordance with the 2-midnight benchmark. Estimated LOS (days): 2 days is the estimated time the patient will need to remain in the hospital, assuming treatment plan goals are met and no additional complications. Post-Hospital Plan: Not yet determined Jorgito Bowling Aug 23, 2016 14:43 Saúl Hutchison MD Aug 23, 2016 14:54
[2016-08-23] MEDS: SODIUM CHLORIDE 0.9% FLUSH 10 ML FLUSH IV FLUSH SCH (21:00)
[2016-08-23] MEDS: PIPERACIL-TAZO 3.375 GM PREMIX 50 ML IV SCH (21:47)
[2016-08-23] MEDS: LACTOBACILLUS ACIDOPHILUS TAB PO SCH (21:47)
[2016-08-24] VITALS: BP 132/75; PULSE 68; RESP 14; TEMP 98.9; O2SAT 96
[2016-08-24] MEDS: PIPERACIL-TAZO 3.375 GM PREMIX 50 ML IV SCH ×3 (02:00→12:28)
[2016-08-24] MEDS: SODIUM CHLOR 0.9% 1000 ML INJ 1,000 ML IV SCH ×3 (04:38→22:57)
[2016-08-24 06:20] LABS: AUTOMATED NEUTROPHIL # 12.2 TH/MM3 (1.8-7.7); EOSINOPHIL % 0.1 % (0.0-4.0); HEMATOCRIT 42.7 % (39.0-51.0); HEMO FLAGS AUTO DIFF; LYMPH % 5.5 % (9.0-44.0); LYMPHOCYTE # 0.7 TH/MM3 (1.0-4.8); MEAN CELL VOLUME 89.2 FL (80.0-100.0); MEAN CORPUSCULAR HEMOGLOBIN 30.6 PG (27.0-34.0); MEAN CORPUSCULAR HGB CONC 34.3 % (32.0-36.0); MONO % 4.7 % (0.0-8.0); NEUT % 89.7 % (16.0-70.0); PLATELET COUNT 111 TH/MM3 (150-450); RED BLOOD COUNT 4.78 MIL/MM3 (4.50-5.90); RED CELL DISTRIBUTION WIDTH 12.6 % (11.6-17.2); WHITE BLOOD COUNT 13.5 TH/MM3 (4.0-11.0)
[2016-08-24 06:28] LABS: CHLORIDE 99 MEQ/L (98-107); POTASSIUM 3.8 MEQ/L (3.5-5.1); SODIUM (NA) 135 MEQ/L (136-145)
[2016-08-24 06:39] LABS: SCAN/DIFF AUTO DIFF CONFIRMED
[2016-08-24 06:41] LABS: ALKALINE PHOSPHATASE 72 U/L (45-117); ALT (GPT) 16 U/L (12-78); ANION GAP 9 MEQ/L (5-15); AST (GOT) 23 U/L (15-37); BICARBONATE 26.9 MEQ/L (21.0-32.0); BLOOD UREA NITROGEN 16 MG/DL (7-18); GLOMERULAR FILTRATION RATE 101 ML/MIN (>89); TOTAL BILIRUBIN ADULT 1.4 MG/DL (0.2-1.0)
[2016-08-24 08:00] VITALS: BP 149/79; PULSE 89; RESP 20; TEMP 100.1; O2SAT 96
--- NOTE | 2016-08-24 09:08 | HHI.PR ---
Subjective Remarks Follow-up severe sepsis/UTI and now bacteremia 08/24/16-patient seen and examined; Blood cultures positive x 4. Afebrile Objective Vitals Vital Signs Date Time Temp Pulse Resp B/P Pulse Ox O2 Delivery O2 Flow Rate FiO2 08/24/16 08:00 100.1 89 20 149/79 96 08/24/16 00:00 98.9 68 14 132/75 96 08/23/16 20:00 98.0 76 18 147/81 98 08/23/16 15:32 98.2 73 18 145/81 96 08/23/16 14:35 82 16 119/62 96 Room Air 08/23/16 13:45 99.1 08/23/16 13:30 90 18 123/69 95 Room Air 08/23/16 13:00 101.2 105 16 177/96 94 Room Air 08/23/16 12:43 177/96 08/23/16 12:43 94 Room Air 08/23/16 12:43 125 94 Room Air 08/23/16 12:13 101.2 140 18 96 I/O 08/23/16 08/23/16 08/23/16 08/24/16 08/24/16 08/24/16 07:00 15:00 23:00 07:00 15:00 23:00 Intake Total 240 ml 1536 ml Output Total 250 ml 600 ml Balance -10 ml 936 ml Intake Oral 240 ml 240 ml IV Total 1296 ml Output Urine Total 250 ml 600 ml # Bowel Movements 1 1 Result Diagram: 08/24/16 0530 08/24/16 0530 Imaging Last Impressions Chest X-Ray 08/23/16 1227 Signed Impressions: Service Date/Time: Tuesday, August 23, 2016 12:47 - CONCLUSION: 1. No acute cardiopulmonary disease. Amilcar Lozano MD Objective Remarks GENERAL: NAD SKIN: Warm and dry. HEAD: Normocephalic. EYES: No scleral icterus. No injection or drainage. NECK: Supple, trachea midline. No JVD or lymphadenopathy. CARDIOVASCULAR: Regular rate and rhythm without murmurs, gallops, or rubs. RESPIRATORY: Breath sounds equal bilaterally. No accessory muscle use. GASTROINTESTINAL: Abdomen soft, non-tender, nondistended. MUSCULOSKELETAL: No cyanosis, or edema. BACK: Nontender without obvious deformity. No CVA tenderness. A/P Problem List: (1) Severe sepsis ICD Code: A41.9 Status: Acute (2) Complicated urinary tract infection ICD Code: N39.0 Status: Acute (3) Lactic acid acidosis ICD Code: E87.2 Status: Acute (4) Bacteremia due to Gram-negative bacteria ICD Code: R78.81 Status: Acute Assessment and Plan 81-year-old man with Bacteremia due to gram-negative bacteria 4/4 positive blood culture Repeat blood culture Start vancomycin IV and continue Zosyn Consult infectious disease specialist Severe sepsis Patient meets criteria on admission with fever, tachycardia, complicated urinary tract infection, lactic acid acidosis Currently on Zosyn empirically Blood cultures and urine culture are pending Complicated urinary tract infection, secondary to recent urological procedure with urethral dilatation Continue antibiotic including Zosyn pending urine culture ER physician discussed with urology who recommended to maintain So in place Follow-up with urology in outpatient setting Hypertension Home medications have been continued As needed clonidine and Vasotec Diabetes, diet controlled Continue monitor glucoses and sliding scale insulin if needed DVT prevention Sequential compression devices Saúl Hutchison MD Aug 24, 2016 09:08
[2016-08-24] MEDS ORDERED: Vancomycin Consult Pharmacy 1 EA OTHER SCH (09:15)
[2016-08-24] MEDS ORDERED: VANCOMYCIN INJ 1,250 MG in SODIUM CHLOR 0.9% 250 ML INJ 250 ML IV SCH (09:15)
[2016-08-24] MEDS: SODIUM CHLORIDE 0.9% FLUSH 10 ML FLUSH IV FLUSH SCH ×2 (09:22→22:58)
[2016-08-24] MEDS: PANTOPRAZOLE SOD 20 MG DELAYED RELEASE TAB PO SCH (09:22)
[2016-08-24] MEDS: LACTOBACILLUS ACIDOPHILUS TAB PO SCH ×2 (09:22→22:58)
[2016-08-24] MEDS: HYDROCHLOROTHIAZIDE 12.5 MG CAP PO SCH (09:22)
[2016-08-24] MEDS ORDERED: VANCOMYCIN 1,000 MG/NS 250 ML IV SCH ×2 (10:00)
[2016-08-24 12:00] VITALS: BP 154/83; PULSE 80; RESP 20; TEMP 97.9; O2SAT 98
--- NOTE | 2016-08-24 12:40 | PD.CONS ---
History of Present Illness Service Infectious disease Consult Requested By Dr Hutchison Reason for Consult Evaluate patient with sepsis Primary Care Physician Ever Harding MD Diagnoses: History of Present Illness Patient seen and examined. Records reviewed. Patient is an 81-year-old male, with known history of urethral strictures, has been getting urethral dilation rotation at least every 6-8 months, he has had it done about 6 times. The urologist and warm and used to do it, and usually after the procedure he would have the So in place for at least 24-48 hours, and he would take a couple days of oral antibiotics. Patient changed his insurance, and he was referred to a different urologist. He had cystoscopy and urethral dilation rotation done 2 days prior to admission. Apparently there was only mild rotation done and a So was not left in place. Patient stated that he had dysuria after the procedure which she thought was from the procedure that was done. He did not see any hematuria. On the day of admission he started having fever and rigors. He continues to have dysuria. Denies any nausea or vomiting, abdominal pain, or any back pain. He presented to the hospital and had findings of sepsis. His WBC was 13.5, was febrile to 101+, tachycardic. Blood cultures done on admission are reported as growing gram-negative jacoby, and urine culture also has gram-negative jacoby.One of the BC has E coli, and verigene nucleic acid testing +ESBL Infectious disease consultation is requested to evaluate the patient. Review of Systems Constitutional: COMPLAINS OF: Fever, Chills Eyes: DENIES: Eye pain Ears, nose, mouth, throat: DENIES: Nasal discharge, Oral lesions, Throat pain, Ear Pain, Running Nose, Sinus Pain Respiratory: DENIES: Cough, Shortness of breath Cardiovascular: DENIES: Chest pain, Palpitations, Syncope Gastrointestinal: DENIES: Abdominal pain, Diarrhea, Nausea, Vomiting Genitourinary: COMPLAINS OF: Dysuria, DENIES: Hematuria Musculoskeletal: DENIES: Joint pain, Joint Swelling Integumentary: DENIES: Rash Immunologic/allergic: DENIES: Urticaria Neurologic: DENIES: Headache Psychiatric: DENIES: Confusion, Hallucinations Past Family Social History Allergies: Coded Allergies: No Known Allergies (Unverified , 08/23/16) Past Medical History Hypertension Hyperlipidemia Diabetes Benign prostatic hypertrophy Chronic back pain History of Lyme's disease Gastroesophageal reflux History GI bleed Hx urethral stricture requiring dilatation Past Surgical History Tonsillectomy Recent cystoscopy with urethral dilatation TURP Circumcision EGD Active Ordered Medications Tylenol Albuterol Clonidine Vasotec Hydrochlorothiazide Lactinex MOM Zofran Protonix Zosyn Vancomycin Family History Not known to patient - parents when he was young Social History Patient quit smoking in 1950, prior to that he smoked 3 pack a cigarettes a day for 35 years while he was in the . He drinks alcohol rarely. Denies any illicit drugs Physical Exam Vital Signs Vital Signs Date Time Temp Pulse Resp B/P Pulse Ox O2 Delivery O2 Flow Rate FiO2 08/24/16 12:00 97.9 80 20 154/83 98 08/24/16 08:00 100.1 89 20 149/79 96 08/24/16 00:00 98.9 68 14 132/75 96 08/23/16 20:00 98.0 76 18 147/81 98 08/23/16 15:32 98.2 73 18 145/81 96 08/23/16 14:35 82 16 119/62 96 Room Air 08/23/16 13:45 99.1 08/23/16 13:30 90 18 123/69 95 Room Air 08/23/16 13:00 101.2 105 16 177/96 94 Room Air 08/23/16 12:43 177/96 08/23/16 12:43 94 Room Air 08/23/16 12:43 125 94 Room Air Physical Exam GENERAL: Patient is a well-nourished, well-developed CM, awake and alert, not in respiratory distress. SKIN: Warm and dry. No generalized rash, no ecchymoses and no evidence of embolic lesions. HEAD: Atraumatic. Normocephalic. No temporal wasting, or tenderness. EYES: [place] conjunctiva. No petechia or hemorrhage. Pupils equal, round and reactive to light. Extraocular movements full and intact. No scleral icterus. No injection or drainage. EARS, NOSE AND THROAT: Nose without bleeding or purulent nasal discharge. No sinus tenderness. Mucous membranes pink and moist. No oral lesions noted. No exudate. No oral thrush. NECK: Trachea midline. Supple and not tender, no meningeal signs CARDIOVASCULAR: Regular rate and rhythm. No murmurs, rubs or gallops heard RESPIRATORY: Clear to auscultation. Breath sounds equal bilaterally. No rales , wheezing or rhonchi ABDOMEN: Soft, non-tender, nondistended. Bowel sounds present and normoactive. No guarding. No rebound. No organomegaly. EXTREMITIES: No clubbing, cyanosis, or edema. No joint effusion, has good ROM. No calf tenderness. Well perfused and warm. Has red small macules at distal dorsum both feet NEUROLOGICAL: Awake and alert. Cranial nerves grossly intact. Motor grossly within normal limits. PSYCHIATRIC: Normal affect, calm and cooperative. : So in place, urine with mild sediment LINE: No evidence of infection Laboratory Laboratory Tests Test 08/23/16 08/24/16 14:30 05:30 Lactic Acid Level 1.2 White Blood Count 13.5 Red Blood Count 4.78 Hemoglobin 14.6 Hematocrit 42.7 Mean Corpuscular Volume 89.2 Mean Corpuscular Hemoglobin 30.6 Mean Corpuscular Hemoglobin 34.3 Concent Red Cell Distribution Width 12.6 Platelet Count 111 Mean Platelet Volume 9.0 Neutrophils (%) (Auto) 89.7 Lymphocytes (%) (Auto) 5.5 Monocytes (%) (Auto) 4.7 Eosinophils (%) (Auto) 0.1 Basophils (%) (Auto) 0.0 Neutrophils # (Auto) 12.2 Lymphocytes # (Auto) 0.7 Monocytes # (Auto) 0.6 Eosinophils # (Auto) 0.0 Basophils # (Auto) 0.0 CBC Comment AUTO DIFF Differential Comment AUTO DIFF CONFIRMED Sodium Level 135 Potassium Level 3.8 Chloride Level 99 Carbon Dioxide Level 26.9 Anion Gap 9 Blood Urea Nitrogen 16 Creatinine 0.74 Estimat Glomerular Filtration 101 Rate Random Glucose 97 Calcium Level 8.5 Total Bilirubin 1.4 Aspartate Amino Transf 23 (AST/SGOT) Alanine Aminotransferase 16 (ALT/SGPT) Alkaline Phosphatase 72 Total Protein 6.2 Albumin 3.2 Date/Time Procedure Status Source Growth 08/24/16 10:10 Aerobic Blood Culture Received Blood Peripheral Pending 08/24/16 10:10 Anaerobic Blood Culture Received Blood Peripheral Pending 08/23/16 12:35 Urine Culture - Preliminary Resulted Urine Catheterized Urine Gram Negative Jacoby 08/23/16 12:35 Aerobic Blood Culture - Preliminary Resulted Blood Peripheral Escherichia Coli 08/23/16 12:35 Anaerobic Blood Culture - Preliminary Resulted Gram Negative Jacoby Result Diagram: 08/24/16 0530 08/24/16 0530 Imaging RADIOLOGY STUDIES/FILMS REVIEWED Chest X-Ray 08/23/16 1227 Signed Impressions: Service Date/Time: Tuesday, August 23, 2016 12:47 - CONCLUSION: 1. No acute cardiopulmonary disease. Amilcar Lozano MD Assessment and Plan Assessment and Plan IMPRESSION GNR sepsis, due to source, had recent instrumentation, xcysto and urethral dilatation - Hx urethral stricture - Possible ESBL DM Hx BPH RECOMMENDATION Follow C/S Change Zosyn to Merem while C/S are not finalized for ESBL+ coverage CT A/P to evaluate for evidence of compliacted UTI Follow temps Monitor progress I will determine course of Abx once work-up completed and cultures finalized I will follow along with you Thank you for this consultation Discussed Condition With José Miguel/Myles ADAMS Explained plan to the patient Gisele Eller MD Aug 24, 2016 12:40
[2016-08-24] MEDS ORDERED: ASP: Documented ESBL, MDR A baumannii or P. aeruginosa PRN (13:00)
[2016-08-24] MEDS ORDERED: MISCELLANEOUS PHARMACY INFORMATION XX PRN (13:00)
[2016-08-24] MEDS: MEROPENEM INJ 1,000 MG in SODIUM CHLORIDE 0.9% INJ 100 ML IV SCH ×2 (15:00→22:58)
[2016-08-24] MEDS ORDERED: DIATRIZOATE MEGLUM/DIATRIZOATE SOD 9 ML CUP PO ONE (15:00)
[2016-08-24 15:41] LABS: HEMOGLOBIN A1a 1.1 %; HEMOGLOBIN A1b 0.9 %; HEMOGLOBIN Ao 84.7 %; HEMOGLOBIN F 0.9 %; HEMOGLOBIN LA1C 1.8 %; HEMOGLOBIN P3 3.9 %
[2016-08-24 16:00] VITALS: BP 156/82; PULSE 78; RESP 20; TEMP 99.7; O2SAT 98
[2016-08-24] MEDS ORDERED: IOHEXOL 350 MG/ML 10 ML VIAL (for RAD DIAG) IV ONE (17:38)
--- NOTE | 2016-08-24 17:49 | RADRPT ---
EXAM DATE/TIME: 08/24/2016 17:21 [facility] COMPARISON: No previous studies available for comparison. INDICATIONS : Sepsis. Urinary tract infection. Post cysto. IV CONTRAST: 80 cc Omnipaque 350 (iohexol) IV ORAL CONTRAST: Prescribed oral contrast ingested. RADIATION DOSE: 6.08 CTDIvol (mGy) MEDICAL HISTORY : Cardiovascular disease. Gastroesophageal reflux disease. Diverticulitis.Hypertension. SURGICAL HISTORY : None. ENCOUNTER: Initial ACUITY: 1 day PAIN SCALE: 0/10 LOCATION: Abdomen TECHNIQUE: Volumetric scanning of the abdomen and pelvis was performed. Using automated exposure control and ad justment of the mA and/or kV according to patient size, radiation dose was kept as low as reasonably achievable to obtain optimal diagnostic quality images. DICOM format image data is available electro nically for review and comparison. FINDINGS: Trace pleural fluid is present. Mild fatty liver. Spleen, adrenals, kidneys and pancreas unremarkable . Multiple gallstones. Mild anasarca. No significant free fluid. No free air. No bowel obstruction. Colonic diverticula without diverticuli tis. So catheter present in the bladder. Mild bladder wall thickening. CONCLUSION: 1. Trace pleural fluid with mild anasarca. 2. Multiple gallstones without biliary ductal dilatation. 3. So catheter in bladder with mild bladder wall thickening. Air fluid level present in the bladde r probably from instrumentation. Oscar Gutierrez MD on August 24, 2016 at 17:40 Board Certified Radiologist. This report was verified electronically.
[2016-08-24 20:00] VITALS: BP 152/95; PULSE 68; RESP 18; TEMP 98.8; O2SAT 97
[2016-08-25] VITALS: BP 155/87; PULSE 76; RESP 18; TEMP 98.3; O2SAT 96
[2016-08-25] MEDS: MEROPENEM INJ 1,000 MG in SODIUM CHLORIDE 0.9% INJ 100 ML IV SCH (06:21)
[2016-08-25 06:48] LABS: AUTOMATED NEUTROPHIL # 9.7 TH/MM3 (1.8-7.7); BASOPHIL % 0.3 % (0.0-2.0); EOSINOPHIL % 0.3 % (0.0-4.0); HEMATOCRIT 44.9 % (39.0-51.0); LYMPHOCYTE # 1.3 TH/MM3 (1.0-4.8); MEAN CORPUSCULAR HEMOGLOBIN 30.4 PG (27.0-34.0); MEAN CORPUSCULAR HGB CONC 33.8 % (32.0-36.0); MONO % 7.7 % (0.0-8.0); NEUT % 80.7 % (16.0-70.0); PLATELET COUNT 115 TH/MM3 (150-450); RED BLOOD COUNT 4.99 MIL/MM3 (4.50-5.90); RED CELL DISTRIBUTION WIDTH 12.6 % (11.6-17.2); WHITE BLOOD COUNT 11.9 TH/MM3 (4.0-11.0)
[2016-08-25 06:54] LABS: POTASSIUM 3.5 MEQ/L (3.5-5.1)
[2016-08-25 06:58] LABS: HEMO FLAGS DIFF FINAL
[2016-08-25 07:02] LABS: BICARBONATE 28.8 MEQ/L (21.0-32.0)
[2016-08-25 08:00] VITALS: BP 146/80; PULSE 53; RESP 20; TEMP 98.4; O2SAT 96
[2016-08-25] MEDS: PANTOPRAZOLE SOD 20 MG DELAYED RELEASE TAB PO SCH (09:52)
[2016-08-25] MEDS: SODIUM CHLORIDE 0.9% FLUSH 10 ML FLUSH IV FLUSH SCH ×2 (09:52→21:00)
[2016-08-25] MEDS: HYDROCHLOROTHIAZIDE 12.5 MG CAP PO SCH (09:52)
[2016-08-25] MEDS: LACTOBACILLUS ACIDOPHILUS TAB PO SCH ×2 (09:52→22:29)
--- NOTE | 2016-08-25 11:29 | HHI.PR ---
Subjective Remarks Follow-up severe sepsis/UTI and now bacteremia 08/24/16-patient seen and examined; Blood cultures positive x 4. Afebrile 08/25/16-patient seen and examined, no acute event overnight and patient remains afebrile. Repeat blood culture negative to date. He is currently on meropenem per infectious disease specialist. Objective Vitals Vital Signs Date Time Temp Pulse Resp B/P Pulse Ox O2 Delivery O2 Flow Rate FiO2 08/25/16 08:00 98.4 53 20 146/80 96 08/25/16 00:00 98.3 76 18 155/87 96 08/24/16 20:00 98.8 68 18 152/95 97 08/24/16 16:00 99.7 78 20 156/82 98 08/24/16 12:00 97.9 80 20 154/83 98 I/O 08/24/16 08/24/16 08/24/16 08/25/16 08/25/16 08/25/16 07:00 15:00 23:00 07:00 15:00 23:00 Intake Total 1536 ml 450 ml Output Total 600 ml 1500 ml 1800 ml 2250 ml Balance 936 ml -1050 ml -1800 ml -2250 ml Intake Oral 240 ml 450 ml IV Total 1296 ml Output Urine Total 600 ml 1500 ml 1800 ml 2250 ml # Bowel Movements 1 1 2 Result Diagram: 08/25/1653208/25/16532 Objective Remarks GENERAL: NAD SKIN: Warm and dry. HEAD: Normocephalic. EYES: No scleral icterus. No injection or drainage. NECK: Supple, trachea midline. No JVD or lymphadenopathy. CARDIOVASCULAR: Regular rate and rhythm without murmurs, gallops, or rubs. RESPIRATORY: Breath sounds equal bilaterally. No accessory muscle use. GASTROINTESTINAL: Abdomen soft, non-tender, nondistended. MUSCULOSKELETAL: No cyanosis, or edema. BACK: Nontender without obvious deformity. No CVA tenderness. A/P Problem List: (1) Severe sepsis ICD Code: A41.9 Status: Acute (2) Complicated urinary tract infection ICD Code: N39.0 Status: Acute (3) Lactic acid acidosis ICD Code: E87.2 Status: Acute (4) Bacteremia due to Gram-negative bacteria ICD Code: R78.81 Status: Acute Assessment and Plan 81-year-old man with Bacteremia due to gram-negative bacteria / positive blood culture Repeat blood culture NTD Currently on meropenem per infectious disease specialist Severe sepsis Patient meets criteria on admission with fever, tachycardia, complicated urinary tract infection, lactic acid acidosis Currently on meropenem Complicated urinary tract infection, secondary to recent urological procedure with urethral dilatation Continue antibiotic including troponin ER physician discussed with urology who recommended to maintain So in place Follow-up with urology in outpatient setting Hypertension Home medications have been continued As needed clonidine and Vasotec Diabetes, diet controlled Continue monitor glucoses and sliding scale insulin if needed DVT prevention Sequential compression devices Saúl Hutchison MD Aug 25, 2016 11:29
[2016-08-25 12:00] VITALS: BP 154/92; PULSE 60; RESP 20; TEMP 98.2; O2SAT 96
[2016-08-25] MEDS ORDERED: MISCELLANEOUS PHARMACY INFORMATION XX PRN (13:45)
[2016-08-25] MEDS ORDERED: ASP: Documented ESBL, MDR A baumannii or P. aeruginosa PRN (13:45)
--- NOTE | 2016-08-25 13:54 | HHI.IDPN ---
Subjective Subjective Remarks Patient is an 81-year-old male, with known history of urethral strictures, has been getting urethral dilation rotation at least every 6-8 months, he has had it done about 6 times. The urologist and warm and used to do it, and usually after the procedure he would have the So in place for at least 24-48 hours, and he would take a couple days of oral antibiotics. Patient changed his insurance, and he was referred to a different urologist. He had cystoscopy and urethral dilation rotation done 2 days prior to admission. Apparently there was only mild rotation done and a So was not left in place. Patient stated that he had dysuria after the procedure which she thought was from the procedure that was done. He did not see any hematuria. On the day of admission he started having fever and rigors. He continues to have dysuria. Denies any nausea or vomiting, abdominal pain, or any back pain. He presented to the hospital and had findings of sepsis. His WBC was 13.5, was febrile to 101+, tachycardic. Blood cultures done on admission are reported as growing gram-negative lucrecia, and urine culture also has gram-negative lucrecia.One of the BC has E coli, and verigene nucleic acid testing +ESBL Notes reviewed Low-grade temps last night Patient feels markedly improved CT abdomen and pelvis, no abscess or obstruction; has thickening of the bladder Blood culture and urine culture with Escherichia coli ESBL positive Repeat blood culture negative NO rash or itching No abdominal pain No N/V, no diarrhea No respiratory complaint Antibiotics Meropenem Lines PIV Past Medical History Hypertension Hyperlipidemia Diabetes Benign prostatic hypertrophy Chronic back pain History of Lyme's disease Gastroesophageal reflux History GI bleed Hx urethral stricture requiring dilatation Past Surgical History Tonsillectomy Recent cystoscopy with urethral dilatation TURP Circumcision EGD Allergies: Coded Allergies: No Known Allergies (Unverified , 08/23/16) Objective . Vital Signs Date Time Temp Pulse Resp B/P Pulse Ox O2 Delivery O2 Flow Rate FiO2 08/25/16 12:00 98.2 60 20 154/92 96 08/25/16 08:00 98.4 53 20 146/80 96 08/25/16 00:00 98.3 76 18 155/87 96 08/24/16 20:00 98.8 68 18 152/95 97 08/24/16 16:00 99.7 78 20 156/82 98 08/24/16 08/24/16 08/25/16 15:00 23:00 07:00 Intake Total 450 ml Output Total 1500 ml 1800 ml 2250 ml Balance -1050 ml -1800 ml -2250 ml Intake Oral 450 ml Output Urine Total 1500 ml 1800 ml 2250 ml # Bowel Movements 1 2 . Laboratory Tests Test 08/24/16 08/25/16 05:30 05:33 White Blood Count 13.5 TH/MM3 11.9 TH/MM3 Red Blood Count 4.78 MIL/MM3 4.99 MIL/MM3 Hemoglobin 14.6 GM/DL 15.1 GM/DL Hematocrit 42.7 % 44.9 % Mean Corpuscular Volume 89.2 FL 90.0 FL Mean Corpuscular Hemoglobin 30.6 PG 30.4 PG Mean Corpuscular Hemoglobin 34.3 % 33.8 % Concent Red Cell Distribution Width 12.6 % 12.6 % Platelet Count 111 TH/MM3 115 TH/MM3 Mean Platelet Volume 9.0 FL 9.3 FL Neutrophils (%) (Auto) 89.7 % 80.7 % Lymphocytes (%) (Auto) 5.5 % 11.0 % Monocytes (%) (Auto) 4.7 % 7.7 % Eosinophils (%) (Auto) 0.1 % 0.3 % Basophils (%) (Auto) 0.0 % 0.3 % Neutrophils # (Auto) 12.2 TH/MM3 9.7 TH/MM3 Lymphocytes # (Auto) 0.7 TH/MM3 1.3 TH/MM3 Monocytes # (Auto) 0.6 TH/MM3 0.9 TH/MM3 Eosinophils # (Auto) 0.0 TH/MM3 0.0 TH/MM3 Basophils # (Auto) 0.0 TH/MM3 0.0 TH/MM3 CBC Comment AUTO DIFF DIFF FINAL Differential Comment AUTO DIFF CONFIRMED Laboratory Tests Test 08/23/16 08/24/16 08/25/16 14:30 05:30 05:33 Lactic Acid Level 1.2 mmol/L Sodium Level 135 MEQ/L 135 MEQ/L Potassium Level 3.8 MEQ/L 3.5 MEQ/L Chloride Level 99 MEQ/L 97 MEQ/L Carbon Dioxide Level 26.9 MEQ/L 28.8 MEQ/L Anion Gap 9 MEQ/L 9 MEQ/L Blood Urea Nitrogen 16 MG/DL 14 MG/DL Creatinine 0.74 MG/DL 0.59 MG/DL Estimat Glomerular Filtration 101 ML/MIN 131 ML/MIN Rate Random Glucose 97 MG/DL 99 MG/DL Hemoglobin A1c 6.5 % Calcium Level 8.5 MG/DL 8.5 MG/DL Total Bilirubin 1.4 MG/DL Aspartate Amino Transf 23 U/L (AST/SGOT) Alanine Aminotransferase 16 U/L (ALT/SGPT) Alkaline Phosphatase 72 U/L Total Protein 6.2 GM/DL Albumin 3.2 GM/DL Microbiology Date/Time Procedure Status Source Growth 08/23/16 12:30 Aerobic Blood Culture - Preliminary Resulted Blood Peripheral Escherichia Coli Esbl Positive 08/23/16 12:30 Anaerobic Blood Culture - Preliminary Resulted Escherichia Coli Esbl Positive 08/23/16 12:35 Aerobic Blood Culture - Preliminary Resulted Blood Peripheral Escherichia Coli 08/23/16 12:35 Anaerobic Blood Culture - Preliminary Resulted Escherichia Coli Esbl Positive 08/23/16 12:35 Urine Culture - Final Complete Urine Catheterized Urine Escherichia Coli Esbl Positive 08/24/16 10:00 Aerobic Blood Culture - Preliminary Resulted Blood Peripheral NO GROWTH IN 1 DAY 08/24/16 10:00 Anaerobic Blood Culture - Preliminary Resulted Blood Peripheral NO GROWTH IN 1 DAY 08/24/16 10:10 Aerobic Blood Culture - Preliminary Resulted Blood Peripheral NO GROWTH IN 1 DAY 08/24/16 10:10 Anaerobic Blood Culture - Preliminary Resulted Blood Peripheral NO GROWTH IN 1 DAY Physical Exam GENERAL: awake and alert, not in respiratory distress. SKIN: Warm and dry. No generalized rash, no ecchymoses and no evidence of embolic lesions. HEAD: Atraumatic. Normocephalic. No temporal wasting, or tenderness. EYES: [place] conjunctiva. No petechia or hemorrhage. Pupils equal, round and reactive to light. Extraocular movements full and intact. No scleral icterus. No injection or drainage. EARS, NOSE AND THROAT: Nose without bleeding or purulent nasal discharge. No sinus tenderness. Mucous membranes pink and moist. NECK: Trachea midline. Supple and not tender, no meningeal signs CARDIOVASCULAR: Regular rate and rhythm. No murmurs, rubs or gallops heard RESPIRATORY: Clear to auscultation. Breath sounds equal bilaterally. No rales , wheezing or rhonchi ABDOMEN: Soft, non-tender, nondistended. Bowel sounds present and normoactive. No guarding. No rebound. No organomegaly. EXTREMITIES: No clubbing, cyanosis, or edema. No calf tenderness. Well perfused and warm. Has red small macules at distal dorsum both feet NEUROLOGICAL: Non-focal. PSYCHIATRIC: Normal affect, calm and cooperative. : So in place, urine with mild sediment LINE: No evidence of infection Assessment & Plan Remarks IMPRESSION E coli ESBL+ sepsis, due to source, had recent instrumentation, cysto and urethral dilatation - Hx urethral stricture - Possible ESBL DM Hx BPH RECOMMENDATION Change to Invanz Follow final BC results and repeat BC Repeat UA If repeat BC negative, and E coli in BC sensitive to Bactrim, will use this to complete Rx on discharge Follow temps Monitor progress Explained plan to the patient Gisele Eller MD Aug 25, 2016 13:54
[2016-08-25 14:56] LABS: BLOOD, URINE SMALL (NEG); KETONE, URINE 15 mg/dL (NEG); NITRITE,URINE NEG (NEG)
[2016-08-25 14:57] LABS: GLUCOSE,URINE 1000 OR GREATER mg/dL (NEG)
[2016-08-25 15:12] LABS: METHOD OF COLLECTION CATH; URINE COLOR STRAW (YELLW/STRAW)
[2016-08-25 15:13] LABS: RBC, URINE 0-3 /hpf (0-3); SQUAMOUS EPITHELIAL CELL URINE 0-5 /hpf (0-5); WBC, URINE 0-2 /hpf (0-5)
[2016-08-25] MEDS: ERTAPENEM INJ 1,000 MG in SODIUM CHLORIDE 0.9% INJ 100 ML IV SCH (15:52)
[2016-08-25 16:00] VITALS: BP 191/99; PULSE 75; RESP 20; TEMP 98.4; O2SAT 95
[2016-08-25] MEDS: cloNIDine HCL 0.1 MG TAB PO PRN (16:50)
[2016-08-25 20:23] VITALS: BP 111/67; PULSE 76; RESP 18; TEMP 96.9; O2SAT 98
[2016-08-25] MEDS ORDERED: PHARMACY ORDERED LAB ONE (21:45)
[2016-08-25] MEDS: SODIUM CHLOR 0.9% 1000 ML INJ 1,000 ML IV SCH (23:18)
[2016-08-26] VITALS (7 sets, daily range): BP systolic 132–173; BP diastolic 83–92; PULSE 40–80; RESP 16–19; TEMP 97–98.7; O2SAT 95–98
--- NOTE | 2016-08-26 08:41 | HHI.PR ---
Subjective Remarks Follow-up severe sepsis/UTI and now bacteremia 08/24/16-patient seen and examined; Blood cultures positive x 4. Afebrile 08/25/16-patient seen and examined, no acute event overnight and patient remains afebrile. Repeat blood culture negative to date. He is currently on meropenem per infectious disease specialist. 08/26/16-patient seen and examined, stable and afebrile Objective Vitals Vital Signs Date Time Temp Pulse Resp B/P Pulse Ox O2 Delivery O2 Flow Rate FiO2 08/26/16 08:00 98.4 68 19 133/85 95 08/26/16 04:48 97.0 76 18 139/87 96 08/26/16 04:47 08/26/16 00:26 97.1 80 16 144/83 97 08/25/16 20:23 96.9 76 18 111/67 98 08/25/16 16:00 98.4 75 20 191/99 95 08/25/16 12:00 98.2 60 20 154/92 96 I/O 08/25/16 08/25/16 08/25/16 08/26/16 08/26/16 08/26/16 07:00 15:00 23:00 07:00 15:00 23:00 Intake Total 660 ml Output Total 2250 ml 750 ml 1750 ml Balance -2250 ml -90 ml -1750 ml Intake Oral 660 ml Output Urine Total 2250 ml 750 ml 1750 ml # Bowel Movements 2 1 Result Diagram: 08/25/16 0533 08/25/16 0533 Objective Remarks GENERAL: NAD SKIN: Warm and dry. HEAD: Normocephalic. EYES: No scleral icterus. No injection or drainage. NECK: Supple, trachea midline. No JVD or lymphadenopathy. CARDIOVASCULAR: Regular rate and rhythm without murmurs, gallops, or rubs. RESPIRATORY: Breath sounds equal bilaterally. No accessory muscle use. GASTROINTESTINAL: Abdomen soft, non-tender, nondistended. MUSCULOSKELETAL: No cyanosis, or edema. BACK: Nontender without obvious deformity. No CVA tenderness. A/P Problem List: (1) Severe sepsis ICD Code: A41.9 Status: Acute (2) Complicated urinary tract infection ICD Code: N39.0 Status: Acute (3) Lactic acid acidosis ICD Code: E87.2 Status: Acute (4) Bacteremia due to Gram-negative bacteria ICD Code: R78.81 Status: Acute Assessment and Plan 81-year-old man with Bacteremia due to gram-negative bacteria 4/4 positive blood culture Repeat blood culture NTD Currently on Invanz per infectious disease specialist Severe sepsis Patient meets criteria on admission with fever, tachycardia, complicated urinary tract infection, lactic acid acidosis Currently on Invanz Complicated urinary tract infection, secondary to recent urological procedure with urethral dilatation Continue antibiotic including Invanz Repeat UA pending ER physician discussed with urology who recommended to maintain So in place Follow-up with urology in outpatient setting Hypertension Home medications have been continued As needed clonidine and Vasotec Diabetes, diet controlled Continue monitor glucoses and sliding scale insulin if needed DVT prevention Sequential compression devices Saúl Hutchison MD Aug 26, 2016 08:40
[2016-08-26] MEDS: HYDROCHLOROTHIAZIDE 12.5 MG CAP PO SCH (09:00)
[2016-08-26] MEDS: PANTOPRAZOLE SOD 20 MG DELAYED RELEASE TAB PO SCH (09:02)
[2016-08-26] MEDS: LACTOBACILLUS ACIDOPHILUS TAB PO SCH ×2 (09:02→20:32)
[2016-08-26] MEDS: SODIUM CHLORIDE 0.9% FLUSH 10 ML FLUSH IV FLUSH SCH ×2 (09:02→20:32)
[2016-08-26] MEDS: ERTAPENEM INJ 1,000 MG in SODIUM CHLORIDE 0.9% INJ 100 ML IV SCH (15:29)
--- NOTE | 2016-08-26 17:17 | HHI.IDPN ---
Subjective Subjective Remarks Patient is an 81-year-old male, with known history of urethral strictures, has been getting urethral dilation rotation at least every 6-8 months, he has had it done about 6 times. The urologist and warm and used to do it, and usually after the procedure he would have the Soto in place for at least 24-48 hours, and he would take a couple days of oral antibiotics. Patient changed his insurance, and he was referred to a different urologist. He had cystoscopy and urethral dilation rotation done 2 days prior to admission. Apparently there was only mild rotation done and a Soto was not left in place. Patient stated that he had dysuria after the procedure which she thought was from the procedure that was done. He did not see any hematuria. On the day of admission he started having fever and rigors. He continues to have dysuria. Denies any nausea or vomiting, abdominal pain, or any back pain. He presented to the hospital and had findings of sepsis. His WBC was 13.5, was febrile to 101+, tachycardic. Blood cultures done on admission are reported as growing gram-negative lucrecia, and urine culture also has gram-negative lucrecia.One of the BC has E coli, and verigene nucleic acid testing +ESBL Notes reviewed temps normal Patient feels markedly improved No new (+) BC CT abdomen and pelvis, no abscess or obstruction; has thickening of the bladder Blood culture and urine culture with Escherichia coli ESBL positive NO rash or itching No abdominal pain No N/V, no diarrhea No respiratory complaint Antibiotics Invanz Lines PIV Past Medical History Hypertension Hyperlipidemia Diabetes Benign prostatic hypertrophy Chronic back pain History of Lyme's disease Gastroesophageal reflux History GI bleed Hx urethral stricture requiring dilatation Past Surgical History Tonsillectomy Recent cystoscopy with urethral dilatation TURP Circumcision EGD Allergies: Coded Allergies: No Known Allergies (Unverified , 08/23/16) Objective . Vital Signs Date Time Temp Pulse Resp B/P Pulse Ox O2 Delivery O2 Flow Rate FiO2 08/26/16 16:00 97.7 40 17 132/86 95 08/26/16 12:00 97.8 76 18 144/92 96 08/26/16 08:00 98.4 68 19 133/85 95 08/26/16 04:48 97.0 76 18 139/87 96 08/26/16 04:47 08/26/16 00:26 97.1 80 16 144/83 97 08/25/16 20:23 96.9 76 18 111/67 98 08/25/16 08/25/16 08/26/16 15:00 23:00 07:00 Intake Total 660 ml Output Total 750 ml 1750 ml Balance -90 ml -1750 ml Intake Oral 660 ml Output Urine Total 750 ml 1750 ml # Bowel Movements 1 . Laboratory Tests Test 08/25/16 05:33 White Blood Count 11.9 TH/MM3 Red Blood Count 4.99 MIL/MM3 Hemoglobin 15.1 GM/DL Hematocrit 44.9 % Mean Corpuscular Volume 90.0 FL Mean Corpuscular Hemoglobin 30.4 PG Mean Corpuscular Hemoglobin 33.8 % Concent Red Cell Distribution Width 12.6 % Platelet Count 115 TH/MM3 Mean Platelet Volume 9.3 FL Neutrophils (%) (Auto) 80.7 % Lymphocytes (%) (Auto) 11.0 % Monocytes (%) (Auto) 7.7 % Eosinophils (%) (Auto) 0.3 % Basophils (%) (Auto) 0.3 % Neutrophils # (Auto) 9.7 TH/MM3 Lymphocytes # (Auto) 1.3 TH/MM3 Monocytes # (Auto) 0.9 TH/MM3 Eosinophils # (Auto) 0.0 TH/MM3 Basophils # (Auto) 0.0 TH/MM3 CBC Comment DIFF FINAL Differential Comment Laboratory Tests Test 08/25/16 05:33 Sodium Level 135 MEQ/L Potassium Level 3.5 MEQ/L Chloride Level 97 MEQ/L Carbon Dioxide Level 28.8 MEQ/L Anion Gap 9 MEQ/L Blood Urea Nitrogen 14 MG/DL Creatinine 0.59 MG/DL Estimat Glomerular Filtration 131 ML/MIN Rate Random Glucose 99 MG/DL Calcium Level 8.5 MG/DL Microbiology Date/Time Procedure Status Source Growth 08/24/16 10:00 Aerobic Blood Culture - Preliminary Resulted Blood Peripheral NO GROWTH IN 2 DAYS 08/24/16 10:00 Anaerobic Blood Culture - Preliminary Resulted Blood Peripheral NO GROWTH IN 2 DAYS 08/24/16 10:10 Aerobic Blood Culture - Preliminary Resulted Blood Peripheral NO GROWTH IN 2 DAYS 08/24/16 10:10 Anaerobic Blood Culture - Preliminary Resulted Blood Peripheral NO GROWTH IN 2 DAYS Physical Exam GENERAL: awake and alert, not in respiratory distress. SKIN: Warm and dry. No generalized rash, no ecchymoses and no evidence of embolic lesions. HEAD: Atraumatic. Normocephalic. No temporal wasting, or tenderness. EYES: [place] conjunctiva. No petechia or hemorrhage. Pupils equal, round and reactive to light. Extraocular movements full and intact. No scleral icterus. No injection or drainage. EARS, NOSE AND THROAT: Nose without bleeding or purulent nasal discharge. No sinus tenderness. Mucous membranes pink and moist. NECK: Trachea midline. Supple and not tender, no meningeal signs CARDIOVASCULAR: Regular rate and rhythm. No murmurs, rubs or gallops heard RESPIRATORY: Clear to auscultation. Breath sounds equal bilaterally. No rales , wheezing or rhonchi ABDOMEN: Soft, non-tender, nondistended. Bowel sounds present and normoactive. No guarding. No rebound. No organomegaly. EXTREMITIES: No clubbing, cyanosis, or edema. No calf tenderness. Well perfused and warm. Has red small macules at distal dorsum both feet NEUROLOGICAL: Non-focal. PSYCHIATRIC: Normal affect, calm and cooperative. : Soto in place, urine with mild sediment LINE: No evidence of infection Assessment & Plan Remarks IMPRESSION E coli ESBL+ sepsis, due to source, had recent instrumentation, cysto and urethral dilatation - Hx urethral stricture DM Hx BPH RECOMMENDATION Continue Invanz Start Bactrim tonight, if no problem overnight, ok to D/C tomorrow and give 14 days oral Bactrim Accdg to notes, ED MD spoke with urology who wanted soto left in place until patient get seen in follow-up in his office Clinically doing well from ID standpoint Explained plan to the patient Gisele Eller MD Aug 26, 2016 17:17
[2016-08-26] MEDS: SODIUM CHLOR 0.9% 1000 ML INJ 1,000 ML IV SCH (20:32)
[2016-08-26] MEDS: SULFAMETHOXAZOLE-TRIMETHOPRIM DS 800-160 MG TAB PO SCH (20:32)
[2016-08-27] MEDS: cloNIDine HCL 0.1 MG TAB PO PRN (00:12)
[2016-08-27 00:39] VITALS: BP 173/94; PULSE 89; RESP 18; TEMP 98; O2SAT 98
[2016-08-27 01:10] VITALS: BP 159/91
[2016-08-27] MEDS: SODIUM CHLOR 0.9% 1000 ML INJ 1,000 ML IV SCH (03:24)
[2016-08-27 04:00] VITALS: BP 146/85
[2016-08-27 08:00] VITALS: BP 192/99; PULSE 62; RESP 17; TEMP 97.9; O2SAT 98
[2016-08-27] MEDS: PANTOPRAZOLE SOD 20 MG DELAYED RELEASE TAB PO SCH (08:50)
[2016-08-27] MEDS: LACTOBACILLUS ACIDOPHILUS TAB PO SCH (08:51)
[2016-08-27] MEDS: HYDROCHLOROTHIAZIDE 12.5 MG CAP PO SCH (08:51)
[2016-08-27] MEDS: SULFAMETHOXAZOLE-TRIMETHOPRIM DS 800-160 MG TAB PO SCH (08:51)
[2016-08-27] MEDS: SODIUM CHLORIDE 0.9% FLUSH 10 ML FLUSH IV FLUSH SCH (08:52)
--- NOTE | 2016-08-27 10:26 | HHI.PR ---
Subjective Remarks Follow-up severe sepsis/UTI and now bacteremia 08/24/16-patient seen and examined; Blood cultures positive x 4. Afebrile 08/25/16-patient seen and examined, no acute event overnight and patient remains afebrile. Repeat blood culture negative to date. He is currently on meropenem per infectious disease specialist. 08/26/16-patient seen and examined, stable and afebrile 08/27/16-patient seen and examined, by the bedside, afebrile and no complaint. Currently on by mouth Bactrim Objective Vitals Vital Signs Date Time Temp Pulse Resp B/P Pulse Ox O2 Delivery O2 Flow Rate FiO2 08/27/16 08:00 97.9 62 17 192/99 98 08/27/16 04:00 146/85 08/27/16 01:10 159/91 08/27/16 00:39 98.0 89 18 173/94 98 08/26/16 20:41 98.7 78 16 173/89 98 08/26/16 16:00 97.7 40 17 132/86 95 08/26/16 12:00 97.8 76 18 144/92 96 I/O 08/26/16 08/26/16 08/26/16 08/27/16 08/27/16 08/27/16 07:00 15:00 23:00 07:00 15:00 23:00 Intake Total 1318 ml 614 ml Output Total 1750 ml 1200 ml 700 ml Balance -1750 ml -1200 ml 618 ml 614 ml Intake Oral 480 ml IV Total 838 ml 614 ml Output Urine Total 1750 ml 1200 ml 700 ml # Bowel Movements 1 2 0 Result Diagram: 08/25/16 0533 08/25/16 0533 Imaging Last Impressions Abdomen/Pelvis CT 08/24/16 0000 Signed Impressions: Service Date/Time: August 17:21 - CONCLUSION: 1. Trace pleural fluid with mild anasarca. 2. Multiple gallstones without biliary ductal dilatation. 3. So catheter in bladder with mild bladder wall thickening. Air fluid level present in the bladder probably from instrumentation. Oscar Gutierrez MD Chest X-Ray 08/23/16 1227 Signed Impressions: Service Date/Time: Tuesday, August 23, 2016 12:47 - CONCLUSION: 1. No acute cardiopulmonary disease. Amilcar Lozano MD Objective Remarks GENERAL: NAD SKIN: Warm and dry. HEAD: Normocephalic. EYES: No scleral icterus. No injection or drainage. NECK: Supple, trachea midline. No JVD or lymphadenopathy. CARDIOVASCULAR: Regular rate and rhythm without murmurs, gallops, or rubs. RESPIRATORY: Breath sounds equal bilaterally. No accessory muscle use. GASTROINTESTINAL: Abdomen soft, non-tender, nondistended. MUSCULOSKELETAL: No cyanosis, or edema. BACK: Nontender without obvious deformity. No CVA tenderness. Procedures none A/P Problem List: (1) Severe sepsis ICD Code: A41.9 Status: Acute (2) Complicated urinary tract infection ICD Code: N39.0 Status: Acute (3) Lactic acid acidosis ICD Code: E87.2 Status: Acute (4) Bacteremia due to Gram-negative bacteria ICD Code: R78.81 Status: Acute Assessment and Plan 81-year-old man with Bacteremia due to gram-negative bacteria 4/4 positive blood culture Repeat blood culture NTD Currently on Bactrim DS 14 days per infectious disease specialist Invanz was discontinued yesterday Severe sepsis-resolved Patient meets criteria on admission with fever, tachycardia, complicated urinary tract infection, lactic acid acidosis Currently on Bactrim DS Complicated urinary tract infection, secondary to recent urological procedure with urethral dilatation due to ESBL Continue antibiotic including Bactrim DS 14 days d/c So Follow-up with urology in outpatient setting Hypertension Home medications have been continued As needed clonidine and Vasotec Diabetes, diet controlled Continue monitor glucoses and sliding scale insulin if needed DVT prevention Sequential compression devices Saúl Hutchison MD Aug 27, 2016 10:26
--- NOTE | 2016-08-27 10:37 | HHI.DS ---
Discharge Summary Admission Date Aug 23, 2016 at 13:57 Discharge Date: Aug 27, 2016 Admitting Diagnosis UTI, SEPSIS (1) Severe sepsis ICD Code: A41.9 (2) Complicated urinary tract infection ICD Code: N39.0 (3) Lactic acid acidosis ICD Code: E87.2 (4) Bacteremia due to Gram-negative bacteria ICD Code: R78.81 Procedures none Brief History - From Admission Written by Jorgito Bowling, acting as scribe for Dr. Hutchison on 08/23/16 at 15: 01. 81 year-old male with known history of hypertension, hyperlipidemia, diet-controlled diabetes, urethral stenosis, gastroesophageal reflux who presented to the hospital because of fever and rigors. Patient is in normal state of health when he went and had urological procedure done on Sunday to include cystoscopy with urethral dilatation. As indicated that this was his 6 time having this procedure done. stated that he only had to have mild stricture release and was discharged home without a So this time. Patient had been doing well with urinating. He has not had any significant dysuria, hesitancy, he has had a good stream. This morning he woke up and had a fever and had rigors. They contacted their urology office and notified them that they were going to the hospital for evaluation. Patient had workup performed in emergency department found to have severe sepsis by criteria secondary to complicated urinary tract infection. Is recommended that patient be admitted for further evaluation management. At the time evaluating the patient he states that he is feeling much better already since he's gotten IV antibiotics and IV fluids. They are anticipating going home tomorrow if he continues to improve. CBC/BMP: 08/25/16 0533 08/25/16 0533 Significant Findings Laboratory Tests Test 08/25/16 08/25/16 05:33 14:45 White Blood Count 11.9 TH/MM3 (4.0-11.0) Platelet Count 115 TH/MM3 (150-450) Neutrophils (%) (Auto) 80.7 % (16.0-70.0) Neutrophils # (Auto) 9.7 TH/MM3 (1.8-7.7) Sodium Level 135 MEQ/L (136-145) Chloride Level 97 MEQ/L (98-107) Creatinine 0.59 MG/DL (0.60-1.30) Urine Glucose (UA) 1000 OR GREATER mg/dL (NEG) Urine Ketones 15 mg/dL (NEG) Urine Occult Blood SMALL (NEG) Urine Leukocyte Esterase TRACE (NEG) Imaging Last Impressions Abdomen/Pelvis CT 08/24/16 0000 Signed Impressions: Service Date/Time: August 17:21 - CONCLUSION: 1. Trace pleural fluid with mild anasarca. 2. Multiple gallstones without biliary ductal dilatation. 3. So catheter in bladder with mild bladder wall thickening. Air fluid level present in the bladder probably from instrumentation. Oscar Gutierrez MD Chest X-Ray 08/23/16 1227 Signed Impressions: Service Date/Time: Tuesday, August 23, 2016 12:47 - CONCLUSION: 1. No acute cardiopulmonary disease. Amilcar Lozano MD PE at Discharge GENERAL: NAD SKIN: Warm and dry. HEAD: Normocephalic. EYES: No scleral icterus. No injection or drainage. NECK: Supple, trachea midline. No JVD or lymphadenopathy. CARDIOVASCULAR: Regular rate and rhythm without murmurs, gallops, or rubs. RESPIRATORY: Breath sounds equal bilaterally. No accessory muscle use. GASTROINTESTINAL: Abdomen soft, non-tender, nondistended. MUSCULOSKELETAL: No cyanosis, or edema. BACK: Nontender without obvious deformity. No CVA tenderness. Hospital Course Patient admitted secondary to sepsis due to complicated UTI for which he was initially started on IV antibiotics however secondary to Bacteremia, infectious disease specialist was consulted patient regimen was adjusted. He was switched to meropenem then Invanz home however prior to discharge patient was started on by mouth Bactrim DS 14 days. Patient was started on insulin sliding scale. He was continued on treatment for other chronic medical condition. DVT and GI prophylaxis were provided. Prio to discharge, patient's condition improved and vitals remained stable. Pt Condition on Discharge: Stable Discharge Disposition: Discharge Home Discharge Time: > 30 minutes Discharge Instructions DIET: Follow Instructions for: Diabetic Diet Activities you can perform: Regular-No Restrictions Saúl Hutchison MD Aug 27, 2016 10:37
[2016-08-27] MEDS ORDERED: LACT PO (10:39)
[2016-08-27] MEDS ORDERED: SULF1TAB23 PO (10:39)
== END 2016-08-27 14:00 | disposition home or self-care (01) | DRG 871 ==
LOC: PHED 12:12 → PHEDA 13:57 → PH3B 14:48
PROVIDERS: ADMIT Hospitalist; ATTEND Hospitalist
DX: A41.50 Gram-negative sepsis, unspecified (principal); R65.21 Severe sepsis with septic shock; E87.2 Acidosis; N39.0 Urinary tract infection, site not specified; E11.9 Type 2 diabetes mellitus without complications; E78.5 Hyperlipidemia, unspecified; I10 Essential (primary) hypertension; K21.9 Gastro-esophageal reflux disease without esophagitis; N40.0 Benign prostatic hyperplasia without lower urinary tract symptoms; Z87.891 Personal history of nicotine dependence; R00.0 Tachycardia, unspecified; N35.9 Urethral stricture, unspecified; M54.9 Dorsalgia, unspecified; G89.29 Other chronic pain
CPT/HCPCS: 51702; 71010; 74177; 80048; 80053; 81001; 83036; 83605; 85025; 87040; 87077; 87086; 87149; 87186; 87205; 96365; 96375; J1335; J2185; J2543; J3370; J7030; J7050; Q9963; Q9967

== ENCOUNTER 2016-11-11 05:16 | Inpatient (IN) | payer MEDICARE ==
[~2016-11-11] VITALS: Ht 175.3 cm; Wt 57.8 kg
[2016-11-11] VITALS (12 sets, daily range): BP systolic 122–219; BP diastolic 80–106; PULSE 69–94; RESP 16–22; TEMP 97.7–98.8; O2SAT 96–99
[~2016-11-11 05:16] MED LIST changes: -BLOOD GLUCOSE T1 TES; +TAMS5CAP PO
[2016-11-11] MEDS ORDERED: IOHEXOL 350 MG/ML 10 ML VIAL (for RAD DIAG) IVCONTRAST ONE (05:17)
[2016-11-11] MEDS ORDERED: SODIUM CHLOR 0.9% 1000 ML INJ 1,000 ML IV SCH (05:47)
--- NOTE | 2016-11-11 05:56 | PD ---
HPI Chief Complaint: GI Complaint Time Seen by Provider: 05:47 Travel History International Travel<30 days: No Contact w/Intl Traveler<30days: No Traveled to known affect area: No History of Present Illness HPI 81-year-old male presents to the emergency department by private transportation the care of his spouse for evaluation of 1 hour prior to arrival to the emergency department patient noted lower abdominal gurgling and then prachi red blood per rectum. No passage of clots. Patient has had previous GI bleed requiring transfusion in the past. History of diverticulitis. Patient denies any rectal pain or abdominal pain. There is been no nausea or vomiting. There is been no fever or chills. There has been no generalized weakness. Patient takes no blood thinning medication. Patient has history of hypertension and chronic pain syndrome. 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 Recent NSAID use. PFSH Past Medical History Narrative Medical Dyslipidemia hypertension PVCs diminished hearing diverticulitis GI bleed BPH urethral strictures TURP and tonsillectomy; no tobacco use; nursing notes reviewed Arthritis: Yes Heart Rhythm Problems: Yes (PVC'S) Cancer: No Cardiovascular Problems: Yes (htn on meds,) High Cholesterol: Yes Diabetes: Yes (Borderline ) Patient Takes Glucophage: No Diminished Hearing: Yes ([place]) Diverticulitis: Yes Endocrine: No GERD: Yes Genitourinary: Yes (BPH, URETHERAL STRICTURES) Hiatal Hernia: No Hypertension: Yes Immune Disorder: No Implanted Vascular Access Dvce: No Musculoskeletal: No Neurologic: Yes (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) Psychiatric: No Reproductive: No Respiratory: No Immunizations Current: Yes Past Surgical History Ear Surgery: No Eye Surgery: Yes (CATARACTS) Genitourinary Surgery: Yes (TURP, bladder stricture) Oral Surgery: No Pacemaker: No Tonsillectomy: Yes Other Surgery: Yes (COLONOSCOPY, pilonidal cyst removed) Social History Alcohol Use: Yes (OCC) Tobacco Use: No (QUIT 1950- smoked 1 ppd) Substance Use: No Allergies-Medications (Allergen,Severity, Reaction): Coded Allergies: *MDRO Multi-Drug Resistant Organism (Verified Adverse Reaction, Unknown, ESBL, 11/11/16) ESBL Escherichia coli (blood & urine) - 08/23/16 Reported Meds & Prescriptions Reported Meds & Active Scripts Active Hydrocodone-Acetaminophen 10-325 mg Tab 1 Tab PO BID PRN Pantoprazole (Pantoprazole Sodium) 20 Mg Tab 20 Mg PO DAILY Reported Hydrochlorothiazide 12.5 Mg Cap 12.5 Mg PO DIRECTED Review of Systems Except as stated in HPI: all other systems reviewed are Neg General / Constitutional: No: Fever, Chills HENT: No: Congestion Cardiovascular: No: Chest Pain or Discomfort Respiratory: No: Shortness of Breath Gastrointestinal: Positive: Hematochezia, No: Nausea, Vomiting, Diarrhea, Abdominal Pain Genitourinary: No: Dysuria, Flank Pain Musculoskeletal: No: Myalgias, Arthralgias Skin: No Rash Psychiatric: No: Anxiety Hematologic/Lymphatic: No: Easy Bruising Physical Exam Narrative GENERAL: Elderly male in no acute distress no respiratory distress SKIN: Warm and dry. HEAD: Normocephalic. EYES: No scleral icterus. No injection or drainage. NECK: Supple, trachea midline. No JVD or lymphadenopathy. CARDIOVASCULAR: Regular rate and rhythm without murmurs, gallops, or rubs. RESPIRATORY: Breath sounds equal bilaterally. No accessory muscle use. GASTROINTESTINAL: Abdomen soft, non-tender, nondistended. Rectal exam: no fissure, no prolapsed hemorrhoid, normal sphincter tone, bolus of stool palpable , nontender, no palpable mass, Prostate non-boggy, stool is brown with prachi red blood on the exam glove. MUSCULOSKELETAL: No cyanosis, or edema. BACK: Nontender without obvious deformity. No CVA tenderness. Data Data Last Documented VS Vital Signs Date Time Temp Pulse Resp B/P (MAP) Pulse Ox O2 Delivery O2 Flow Rate FiO2 11/11/16 06:53 92 16 183/92 (122) 97 Room Air 11/11/16 05:35 97.9 Orders Orders Complete Blood Count With Diff (11/11/16 05:47) Comprehensive Metabolic Panel (11/11/16 05:47) Prothrombin Time / Inr (Pt) (11/11/16 05:47) Act Partial Throm Time (Ptt) (11/11/16 05:47) Type And Screen (11/11/16 05:47) Ecg Monitoring (11/11/16 05:47) Iv Access Insert/Monitor (11/11/16 05:47) Oximetry (11/11/16 05:47) Sodium Chlor 0.9% 1000 Ml Inj (Ns 1000 M (11/11/16 05:47) Sodium Chloride 0.9% Flush (Ns Flush) (11/11/16 06:00) Ct Abd/Pel W Iv Contrast(Rout) (11/11/16 ) Urinalysis - C+S If Indicated (11/11/16 06:00) Iohexol 350 Inj (Omnipaque 350 Inj) (11/11/16 05:17) Admit To Inpatient (11/11/16 ) Vital Signs (Adult) Q4H (11/11/16 07:51) Activity Oob With Assistance (11/11/16 07:51) Wireless Retail Manager / Telemetry .CONTINUOUS (11/11/16 07:51) Diet Npo (11/11/16 Breakfast) Sodium Chlor 0.9% 1000 Ml Inj (Ns 1000 M (11/11/16 09:00) Sodium Chloride 0.9% Flush (Ns Flush) (11/11/16 08:00) Sodium Chloride 0.9% Flush (Ns Flush) (11/11/16 09:00) Ondansetron Inj (Zofran Inj) (11/11/16 08:00) Comprehensive Metabolic Panel (11/12/16 06:00) Complete Blood Count With Diff (11/12/16 06:00) Scd Bilateral/Knee High HUMBERTO.BID (11/11/16 07:51) Naloxone Inj (Narcan Inj) (11/11/16 08:00) Docusate Sodium-Senna (Marycarmen-Colace) (11/11/16 09:00) Magnesium Hydroxide Liq (Milk Of Magnesi (11/11/16 08:00) Sennosides (Senokot) (11/11/16 08:00) Bisacodyl Supp (Dulcolax Supp) (11/11/16 08:00) Lactulose Liq (Lactulose Liq) (11/11/16 08:00) Inpatient Certification (11/11/16 ) Consult Gastroenterology (11/11/16 ) Hydrochlorothiazide (Microzide) (11/11/16 09:00) Acetamin-Hydrocod 325-10 Mg ([place] 10-32 (11/11/16 08:00) Pantoprazole (Protonix) (11/11/16 09:00) Enalaprilat Inj (Vasotec Inj) (11/11/16 08:00) (Hub Use Only)Inp Phy Cons/Ref (11/11/16 ) Admit Order (Ed Use Only) (11/11/16 08:01) Labs Laboratory Tests Test 11/11/16 05:45 11/11/16 06:21 White Blood Count 7.4 TH/MM3 Red Blood Count 4.79 MIL/MM3 Hemoglobin 14.6 GM/DL Hematocrit 43.4 % Mean Corpuscular Volume 90.6 FL Mean Corpuscular Hemoglobin 30.4 PG Mean Corpuscular Hemoglobin Concent 33.6 % Red Cell Distribution Width 14.6 % Platelet Count 169 TH/MM3 Mean Platelet Volume 9.2 FL Neutrophils (%) (Auto) 67.7 % Lymphocytes (%) (Auto) 21.1 % Monocytes (%) (Auto) 9.3 % Eosinophils (%) (Auto) 0.8 % Basophils (%) (Auto) 1.1 % Neutrophils # (Auto) 4.9 TH/MM3 Lymphocytes # (Auto) 1.6 TH/MM3 Monocytes # (Auto) 0.7 TH/MM3 Eosinophils # (Auto) 0.1 TH/MM3 Basophils # (Auto) 0.1 TH/MM3 CBC Comment DIFF FINAL Differential Comment Prothrombin Time 12.0 SEC Prothromb Time International Ratio 1.1 RATIO Activated Partial Thromboplast Time 29.4 SEC Blood Urea Nitrogen 16 MG/DL Creatinine 0.64 MG/DL Random Glucose 124 MG/DL Total Protein 6.8 GM/DL Albumin 4.1 GM/DL Calcium Level 9.1 MG/DL Alkaline Phosphatase 83 U/L Aspartate Amino Transf (AST/SGOT) 21 U/L Alanine Aminotransferase (ALT/SGPT) 19 U/L Total Bilirubin 0.8 MG/DL Sodium Level 134 MEQ/L Potassium Level 3.6 MEQ/L Chloride Level 98 MEQ/L Carbon Dioxide Level 27.1 MEQ/L Anion Gap 9 MEQ/L Estimat Glomerular Filtration Rate 119 ML/MIN Urine Color STRAW Urine Turbidity CLEAR Urine pH 5.5 Urine Specific [place] 1.009 Urine Protein NEG mg/dL Urine Glucose (UA) 250 mg/dL Urine Ketones NEG mg/dL Urine Occult Blood NEG Urine Nitrite NEG Urine Bilirubin NEG Urine Leukocyte Esterase NEG Urine RBC 0-2 /hpf Urine WBC 0-2 /hpf Urine Squamous Epithelial Cells 0-5 /hpf Urine Bacteria NONE /hpf Microscopic Urinalysis Comment CULT NOT INDICATED MDM Medical Decision Making Medical Screen Exam Complete: Yes Emergency Medical Condition: Yes Medical Record Reviewed: Yes Interpretation(s) CBC & BMP Diagram 11/11/16 05:45 Total Protein 6.8, Albumin 4.1, Calcium Level 9.1, Alkaline Phosphatase 83, Aspartate Amino Transf (AST/SGOT) 21, Alanine Aminotransferase (ALT/SGPT) 19, Total Bilirubin 0.8 Differential Diagnosis Lower GI bleed upper GI bleed AVM mass/malignancy diverticular bleed/hemorrhage colitis anemia Narrative Course patient placed on monitor IV access obtained specimens collected and sent for resulting patient hemoglobin stable CT pending CT diverticulosis; constipation; no free air and no obstruction review of medica record colonoscopy 2014 diverticulosis and angiogram no bleed source; 2014 recurrent GI bleed it is now 7:30 care signed over to Dr Mckinney for OBS admission to [facility] service H[facility] Point of Care Internal Pos. & Neg. Controls: Passed Fecal Specimen Occult Blood: Positive Physician Communication Physician Communication call placed to [facility] service for obs admission Diagnosis Primary Impression: Rectal bleeding Admitting Information Admitting Physician Requests: Observation Flavia Hart MD Nov 11, 2016 05:56
[2016-11-11] MEDS ORDERED: SODIUM CHLORIDE 0.9% FLUSH 10 ML FLUSH IVF PRN (06:00)
[2016-11-11 06:05] LABS: AUTOMATED NEUTROPHIL # 4.9 TH/MM3 (1.8-7.7); BASOPHIL # 0.1 TH/MM3 (0-0.2); BASOPHIL % 1.1 % (0.0-2.0); EOSINOPHIL # 0.1 TH/MM3 (0-0.4); EOSINOPHIL % 0.8 % (0.0-4.0); HEMATOCRIT 43.4 % (39.0-51.0); HEMO FLAGS DIFF FINAL; LYMPH % 21.1 % (9.0-44.0); LYMPHOCYTE # 1.6 TH/MM3 (1.0-4.8); MEAN CELL VOLUME 90.6 FL (80.0-100.0); MEAN CORPUSCULAR HEMOGLOBIN 30.4 PG (27.0-34.0); MEAN CORPUSCULAR HGB CONC 33.6 % (32.0-36.0); MONO % 9.3 % (0.0-8.0); NEUT % 67.7 % (16.0-70.0); PLATELET COUNT 169 TH/MM3 (150-450); RED BLOOD COUNT 4.79 MIL/MM3 (4.50-5.90); RED CELL DISTRIBUTION WIDTH 14.6 % (11.6-17.2); WHITE BLOOD COUNT 7.4 TH/MM3 (4.0-11.0)
[2016-11-11 06:11] LABS: CHLORIDE 98 MEQ/L (98-107); POTASSIUM 3.6 MEQ/L (3.5-5.1); SODIUM (NA) 134 MEQ/L (136-145)
[2016-11-11 06:15] LABS: ANION GAP 9 MEQ/L (5-15); APTT (PATIENT) 29.4 SEC (24.3-30.1); BICARBONATE 27.1 MEQ/L (21.0-32.0); BLOOD UREA NITROGEN 16 MG/DL (7-18); INTERNATIONAL NORMALIZED RATIO 1.1 RATIO
[2016-11-11 06:18] LABS: ALT (GPT) 19 U/L (12-78); AST (GOT) 21 U/L (15-37); GLOMERULAR FILTRATION RATE 119 ML/MIN (>89)
[2016-11-11 06:20] LABS: TOTAL BILIRUBIN ADULT 0.8 MG/DL (0.2-1.0)
[2016-11-11 06:21] LABS: ALKALINE PHOSPHATASE 83 U/L (45-117)
[2016-11-11 06:27] LABS: BLOOD, URINE NEG (NEG); GLUCOSE,URINE 250 mg/dL (NEG); KETONE, URINE NEG (NEG); NITRITE,URINE NEG (NEG); PH, URINE 5.5 (5.0-8.5)
[2016-11-11 06:32] LABS: URINE COLOR STRAW (YELLW/STRAW)
[2016-11-11 06:33] LABS: COMMENT (UR) CULT NOT INDICATED; CULTURE IF INDICATED CULT NOT INDICATED; RBC, URINE 0-2 /hpf (0-3); SQUAMOUS EPITHELIAL CELL URINE 0-5 /hpf (0-5); WBC, URINE 0-2 /hpf (0-5)
--- NOTE | 2016-11-11 07:06 | RADRPT ---
EXAM DATE/TIME: 11/11/2016 06:38 [place] COMPARISON: CT ABDOMEN & PELVIS W CONTRAST, August 24, 2016, 17:21. CT ABDOMEN & PELVIS W CONTRAST, October 29, 21:27. INDICATIONS : Rectal bleeding and blood in stool. Patient with history of GI bleed. IV CONTRAST: 96 cc Omnipaque 350 (iohexol) IV ORAL CONTRAST: No oral contrast ingested. RADIATION DOSE: 4.44 CTDIvol (mGy) MEDICAL HISTORY : Gastroesophageal reflux disease. Diverticulitis. Hypertension.GI bleed SURGICAL HISTORY : Prostatectomy. Tonsillectomy. ENCOUNTER: Initial ACUITY: 1 day PAIN SCALE: 2/10 LOCATION: abdomen TECHNIQUE: Volumetric scanning of the abdomen and pelvis was performed. Using automated exposure control and ad justment of the mA and/or kV according to patient size, radiation dose was kept as low as reasonably achievable to obtain optimal diagnostic quality images. DICOM format image data is available electro nically for review and comparison. FINDINGS: Liver, spleen, pancreas and kidneys are within normal limits. Prominent left adrenal gland is long-te rm stable. Small stones in the gallbladder again noted. Large amount of stool throughout the colon. There is left side diverticulosis but no acute/focal infl ammatory changes demonstrated. Stomach less distended than on prior studies; accounting for this, the re seems to be generalized wall thickening, for example series 2 image 14. Tortuous and atherosclerotic abdominal aorta. No aneurysm. Small bilateral inguinal hernias are noted containing fat and small fluid. No bowel herniation. CONCLUSION: 1. Apparent constipation; there is large stool throughout the colon. 2. Left side colonic diverticulosis but no acute diverticulitis demonstrated. 3. Apparent gastric wall thickening, nonspecific but as can be seen in the setting of gastritis. 4. Cholelithiasis again noted. No evidence of cholecystitis or biliary obstruction. 5. Unchanged left adrenal nodularity compatible with adenoma. 6. Unchanged tortuosity and mild atherosclerosis of the abdominal aorta. No aneurysm. 7. Bilateral inguinal hernias containing fat and small amount of fluid. No bowel herniation. Sky Bonner MD on November 11, 2016 at 6:58 Board Certified Radiologist. This report was verified electronically.
[2016-11-11] MEDS ORDERED: LACTULOSE SYRUP 20 GM/30 ML CUP PO PRN (08:00)
[2016-11-11] MEDS ORDERED: SODIUM CHLORIDE 0.9% FLUSH 10 ML FLUSH IV FLUSH PRN (08:00)
[2016-11-11] MEDS ORDERED: NALOXONE HCL 0.4 MG/ML AMP IV PRN (08:00)
[2016-11-11] MEDS ORDERED: ENALAPRILAT 1.25 MG/ML VIAL IV PUSH PRN (08:00)
[2016-11-11] MEDS ORDERED: SENNOSIDES 8.6 MG TAB PO PRN (08:00)
[2016-11-11] MEDS ORDERED: ACETAMINOPHEN/HYDROcodone 325 MG/10 MG TAB PO PRN (08:00)
[2016-11-11] MEDS ORDERED: ONDANSETRON HCL 4 MG/2 ML VIAL IVP PRN (08:00)
[2016-11-11] MEDS ORDERED: BISACODYL 10 MG SUPP RECTAL PRN (08:00)
[2016-11-11] MEDS ORDERED: MAGNESIUM HYDROXIDE SUSP 30 ML CUP PO PRN (08:00)
--- NOTE | 2016-11-11 08:08 | PD ---
Data Data Last Documented VS Vital Signs Date Time Temp Pulse Resp B/P (MAP) Pulse Ox O2 Delivery O2 Flow Rate FiO2 11/11/16 06:53 92 16 183/92 (122) 97 Room Air 11/11/16 05:35 97.9 Orders Orders Complete Blood Count With Diff (11/11/16 05:47) Comprehensive Metabolic Panel (11/11/16 05:47) Prothrombin Time / Inr (Pt) (11/11/16 05:47) Act Partial Throm Time (Ptt) (11/11/16 05:47) Type And Screen (11/11/16 05:47) Ecg Monitoring (11/11/16 05:47) Iv Access Insert/Monitor (11/11/16 05:47) Oximetry (11/11/16 05:47) Sodium Chlor 0.9% 1000 Ml Inj (Ns 1000 M (11/11/16 05:47) Sodium Chloride 0.9% Flush (Ns Flush) (11/11/16 06:00) Ct Abd/Pel W Iv Contrast(Rout) (11/11/16 ) Urinalysis - C+S If Indicated (11/11/16 06:00) Iohexol 350 Inj (Omnipaque 350 Inj) (11/11/16 05:17) Admit To Inpatient (11/11/16 ) Vital Signs (Adult) Q4H (11/11/16 07:51) Activity Oob With Assistance (11/11/16 07:51) Round Cutter Operator / Telemetry .CONTINUOUS (11/11/16 07:51) Diet Npo (11/11/16 Breakfast) Sodium Chlor 0.9% 1000 Ml Inj (Ns 1000 M (11/11/16 09:00) Sodium Chloride 0.9% Flush (Ns Flush) (11/11/16 08:00) Sodium Chloride 0.9% Flush (Ns Flush) (11/11/16 09:00) Ondansetron Inj (Zofran Inj) (11/11/16 08:00) Comprehensive Metabolic Panel (11/12/16 06:00) Complete Blood Count With Diff (11/12/16 06:00) Scd Bilateral/Knee High HUMBERTO.BID (11/11/16 07:51) Naloxone Inj (Narcan Inj) (11/11/16 08:00) Docusate Sodium-Senna (Marycarmen-Colace) (11/11/16 09:00) Magnesium Hydroxide Liq (Milk Of Magnesi (11/11/16 08:00) Sennosides (Senokot) (11/11/16 08:00) Bisacodyl Supp (Dulcolax Supp) (11/11/16 08:00) Lactulose Liq (Lactulose Liq) (11/11/16 08:00) Inpatient Certification (11/11/16 ) Consult Gastroenterology (11/11/16 ) Hydrochlorothiazide (Microzide) (11/11/16 09:00) Acetamin-Hydrocod 325-10 Mg ([place] 10-32 (11/11/16 08:00) Pantoprazole (Protonix) (11/11/16 09:00) Enalaprilat Inj (Vasotec Inj) (11/11/16 08:00) (Hub Use Only)Inp Phy Cons/Ref (11/11/16 ) Admit Order (Ed Use Only) (11/11/16 08:01) Labs Laboratory Tests Test 11/11/16 05:45 11/11/16 06:21 White Blood Count 7.4 TH/MM3 Red Blood Count 4.79 MIL/MM3 Hemoglobin 14.6 GM/DL Hematocrit 43.4 % Mean Corpuscular Volume 90.6 FL Mean Corpuscular Hemoglobin 30.4 PG Mean Corpuscular Hemoglobin Concent 33.6 % Red Cell Distribution Width 14.6 % Platelet Count 169 TH/MM3 Mean Platelet Volume 9.2 FL Neutrophils (%) (Auto) 67.7 % Lymphocytes (%) (Auto) 21.1 % Monocytes (%) (Auto) 9.3 % Eosinophils (%) (Auto) 0.8 % Basophils (%) (Auto) 1.1 % Neutrophils # (Auto) 4.9 TH/MM3 Lymphocytes # (Auto) 1.6 TH/MM3 Monocytes # (Auto) 0.7 TH/MM3 Eosinophils # (Auto) 0.1 TH/MM3 Basophils # (Auto) 0.1 TH/MM3 CBC Comment DIFF FINAL Differential Comment Prothrombin Time 12.0 SEC Prothromb Time International Ratio 1.1 RATIO Activated Partial Thromboplast Time 29.4 SEC Blood Urea Nitrogen 16 MG/DL Creatinine 0.64 MG/DL Random Glucose 124 MG/DL Total Protein 6.8 GM/DL Albumin 4.1 GM/DL Calcium Level 9.1 MG/DL Alkaline Phosphatase 83 U/L Aspartate Amino Transf (AST/SGOT) 21 U/L Alanine Aminotransferase (ALT/SGPT) 19 U/L Total Bilirubin 0.8 MG/DL Sodium Level 134 MEQ/L Potassium Level 3.6 MEQ/L Chloride Level 98 MEQ/L Carbon Dioxide Level 27.1 MEQ/L Anion Gap 9 MEQ/L Estimat Glomerular Filtration Rate 119 ML/MIN Urine Color STRAW Urine Turbidity CLEAR Urine pH 5.5 Urine Specific [place] 1.009 Urine Protein NEG mg/dL Urine Glucose (UA) 250 mg/dL Urine Ketones NEG mg/dL Urine Occult Blood NEG Urine Nitrite NEG Urine Bilirubin NEG Urine Leukocyte Esterase NEG Urine RBC 0-2 /hpf Urine WBC 0-2 /hpf Urine Squamous Epithelial Cells 0-5 /hpf Urine Bacteria NONE /hpf Microscopic Urinalysis Comment CULT NOT INDICATED MDM Supervised Visit with [facility]: No Narrative Course This case is checked out to me by Dr. Hart. She is recommended admission for acute GI bleeding. Started this morning. He has bright red blood per rectum and history of severe GI bleeding in the past requiring transfusions/ angiography. However he is stable now. I placed him on the regular floor. I spoke with the admitting physician Dr. Marciano Billy. Patient's lab studies at this time are normal including hemoglobin of 14 CT scan of abdomen and pelvis reveals some incidental findings as well as diverticular disease without acute diverticulitis. Diagnosis Primary Impression: GI (gastrointestinal bleed) Qualified Codes: K92.2 - Gastrointestinal hemorrhage, unspecified Admitting Information Admitting Physician Requests: it Jorgito Mckinney MD Nov 11, 2016 08:08
[2016-11-11] MEDS: HYDROCHLOROTHIAZIDE 12.5 MG CAP PO SCH ×2 (08:27→22:05)
[2016-11-11] MEDS: DOCUSATE SODIUM 50 MG/SENNA 8.6 MG TAB PO SCH ×2 (08:31→22:05)
[2016-11-11] MEDS: PANTOPRAZOLE SOD 20 MG DELAYED RELEASE TAB PO SCH (08:31)
[2016-11-11] MEDS: SODIUM CHLOR 0.9% 1000 ML INJ 1,000 ML IV SCH ×2 (08:32→18:14)
[2016-11-11] MEDS: SODIUM CHLORIDE 0.9% FLUSH 10 ML FLUSH IV FLUSH SCH ×2 (08:38→21:00)
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
[2016-11-11] MEDS ORDERED: DEXTROSE 50% IN WATER 50 ML VIAL(D50) IV PRN (12:15)
[2016-11-11] MEDS ORDERED: GLUCAGON 1 MG/ML VIAL OTHER PRN (12:15)
[2016-11-11 15:20] LABS: HEMATOCRIT 45.5 % (39.0-51.0); REVIEW FLAG FINAL
[2016-11-11] MEDS: INSULIN ASPART SUPPLEMENTAL SCALE SQ SCH ×2 (16:00→21:00)
[2016-11-11] MEDS: cloNIDine HCL 0.1 MG TAB PO PRN (16:43)
--- NOTE | 2016-11-11 21:42 | MB ---
cc: IAN CALDWELL MD DATE OF CONSULTATION 11/11/16 DATE OF 1935 REASON FOR CONSULTATION Rectal bleeding. HISTORY OF PRESENT ILLNESS Thank you for the consultation. A pleasant 81-year-old gentleman who has been healthy. The patient came complaining of two episodes of bloody stool. The patient stated that the blood was a small amount mixed with the stool that was concerning to him because of previous episodes of rectal bleeding that was severe requiring blood transfusion. The patient had history of diverticular bleed in the past, according to him. The patient denied any other GI symptoms except constipation. He stated he strained for bowel movement from time to time. The patient currently feels well, laying in bed comfortably, no significant symptoms. He denied any nausea and vomiting. No abdominal pain through this episode and no other GI issues involved. No weight loss. PAST MEDICAL HISTORY 1. Hypertension, 2. Hyperlipidemia, 3. Diabetes, 4. Benign prostatic hypertrophy, 5. Chronic back pain, 6. History of lung disease, 7. Reflux symptom 8. GI bleed. PAST SURGICAL HISTORY 1. TURP 2. Upper endoscopy and colonoscopy 3. Tonsillectomy. MEDICATIONS Reviewed in the chart. ALLERGIES MULTIDRUG RESISTANT ORGANISMS. FAMILY HISTORY Pneumonia. SOCIAL HISTORY He used to smoke large amount for a short period of time, very rare alcohol, no drugs. PHYSICAL EXAMINATION GENERAL; Alert, oriented no acute distress. VITAL SIGNS: Stable. HEENT: Pupils are round, reactive to light. NECK: Supple. CHEST: Clear. CARDIAC: Regular rate and rhythm. No murmur or gallop. ABDOMEN: Soft, nondistended. Positive bowel sounds. No hepatosplenomegaly. EXTREMITIES: No edema, clubbing or cyanosis. NEUROLOGIC: Overall intact. No weakness. PSYCHIATRIC: Psychologically appropriate. LABORATORY DATA White count 7.4, hemoglobin on admission was 14.6 and repeat this evening was 14.7, platelets 169, INR 1.1. Chemistry normal. UA was negative. IMAGING STUDIES Abdominal CT scan showed constipation, large amounts throughout the colon with diverticulosis. No diverticulitis. apparent gastric wall thickening, non-specified, could be gastritis. Cholelithiasis. ASSESSMENT/PLAN An 81-year-old gentleman who has rectal bleeding most likely either from constipation with possible ischemic colon or from diverticular bleed. At any case, the patient is hemodynamically stable. Hemoglobin is stable. No sign of active bleeding at this time. No abdominal pain. We can observe overnight and he can have a colonoscopy as an outpatient. Also he can have an endoscopy for gastritis at the same time to evaluate for the thickening of the stomach. If his hemoglobin drops significantly, then he will need colonoscopy as an inpatient but I doubt that this will happen. The patient was instructed to avoid constipation and use prune juice or a stool softener with drinking lots of water. MD KEVIN Hidalgo/ /8:30 PM /9:29 PM
[2016-11-12] VITALS (8 sets, daily range): BP systolic 138–174; BP diastolic 83–96; PULSE 75–96; RESP 16–20; TEMP 96–97.6; O2SAT 95–100
[2016-11-12 06:47] LABS: AUTOMATED NEUTROPHIL # 5.3 TH/MM3 (1.8-7.7); BASOPHIL % 0.4 % (0.0-2.0); EOSINOPHIL # 0.1 TH/MM3 (0-0.4); EOSINOPHIL % 1.2 % (0.0-4.0); HEMATOCRIT 40.8 % (39.0-51.0); HEMO FLAGS DIFF FINAL; LYMPH % 16.7 % (9.0-44.0); LYMPHOCYTE # 1.2 TH/MM3 (1.0-4.8); MEAN CELL VOLUME 92.7 FL (80.0-100.0); MEAN CORPUSCULAR HEMOGLOBIN 30.6 PG (27.0-34.0); MEAN CORPUSCULAR HGB CONC 33.1 % (32.0-36.0); MONO % 7.7 % (0.0-8.0); PLATELET COUNT 161 TH/MM3 (150-450); RED BLOOD COUNT 4.41 MIL/MM3 (4.50-5.90); WHITE BLOOD COUNT 7.1 TH/MM3 (4.0-11.0)
[2016-11-12 06:56] LABS: CHLORIDE 101 MEQ/L (98-107); POTASSIUM 3.8 MEQ/L (3.5-5.1); SODIUM (NA) 137 MEQ/L (136-145)
[2016-11-12] MEDS: INSULIN ASPART SUPPLEMENTAL SCALE SQ SCH ×4 (07:00→21:00)
[2016-11-12 07:19] LABS: ALKALINE PHOSPHATASE 59 U/L (45-117); ALT (GPT) 14 U/L (12-78); ANION GAP 7 MEQ/L (5-15); AST (GOT) 17 U/L (15-37); BICARBONATE 28.7 MEQ/L (21.0-32.0); BLOOD UREA NITROGEN 18 MG/DL (7-18); GLOMERULAR FILTRATION RATE 124 ML/MIN (>89)
[2016-11-12] MEDS: SODIUM CHLORIDE 0.9% FLUSH 10 ML FLUSH IV FLUSH SCH ×2 (09:00→21:00)
[2016-11-12] MEDS: DOCUSATE SODIUM 50 MG/SENNA 8.6 MG TAB PO SCH ×2 (09:00→21:00)
[2016-11-12] MEDS: HYDROCHLOROTHIAZIDE 12.5 MG CAP PO SCH ×2 (10:12→21:52)
[2016-11-12] MEDS: PANTOPRAZOLE SOD 20 MG DELAYED RELEASE TAB PO SCH (10:13)
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
[2016-11-12] MEDS: cloNIDine HCL 0.1 MG TAB PO PRN (13:33)
[2016-11-12] MEDS: SODIUM CHLOR 0.9% 1000 ML INJ 1,000 ML IV SCH ×3 (13:34→21:53)
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
[2016-11-12] MEDS ORDERED: PEG (High)/E-LYTE SOLN 4000 ML BTL PO ONE (17:00)
[2016-11-12 20:45] LABS: HEMATOCRIT 40.1 % (39.0-51.0); REVIEW FLAG FINAL
[2016-11-13] VITALS (8 sets, daily range): BP systolic 140–173; BP diastolic 80–91; PULSE 57–84; RESP 16–19; TEMP 95.6–96.9; O2SAT 97–100
[2016-11-13] MEDS: INSULIN ASPART SUPPLEMENTAL SCALE SQ SCH ×4 (06:04→20:44)
[2016-11-13] MEDS: DOCUSATE SODIUM 50 MG/SENNA 8.6 MG TAB PO SCH ×2 (09:00→20:43)
[2016-11-13] MEDS: SODIUM CHLORIDE 0.9% FLUSH 10 ML FLUSH IV FLUSH SCH ×2 (09:00→20:43)
[2016-11-13] MEDS: HYDROCHLOROTHIAZIDE 12.5 MG CAP PO SCH ×2 (09:00→20:43)
[2016-11-13] MEDS: PANTOPRAZOLE SOD 20 MG DELAYED RELEASE TAB PO SCH (09:03)
[2016-11-13 10:29] LABS: HEMATOCRIT 36.5 % (39.0-51.0); REVIEW FLAG FINAL
[2016-11-13] MEDS ORDERED: PROPOFOL 200 MG/20 ML AMP IV ONE (12:18)
--- NOTE | 2016-11-13 13:01 | HHI.GIFU ---
Subjective Remarks Patient was seen and examined, continued to have small amount of blood in the stool with the preparation, still no abdominal pain or other symptom, hemoglobin slightly lower but stable Objective Vitals I&O Vital Signs Date Time Temp Pulse Resp B/P (MAP) Pulse Ox O2 Delivery O2 Flow Rate FiO2 11/13/16 11:58 95.6 84 18 140/80 (100) 97 11/13/16 08:00 96.5 73 18 173/91 (118) 100 11/13/16 04:26 96.9 60 18 140/86 (104) 98 11/13/16 01:02 96.3 57 16 145/81 (102) 97 11/12/16 20:55 96.7 85 18 145/85 (105) 100 11/12/16 20:00 92 11/12/16 16:00 96.0 80 18 153/88 (109) 100 I/O 11/12/16 11/12/16 11/12/16 11/13/16 11/13/16 11/13/16 07:00 15:00 23:00 07:00 15:00 23:00 Intake Total 913 ml 630 ml 1180 ml Output Total 4 ml 1 ml Balance 913 ml 626 ml 1179 ml Intake Oral 630 ml 350 ml IV Total 913 ml 830 ml Stool Total 4 ml 1 ml # Voids 1 6 1 6 1 # Bowel Movements 0 5 Laboratory Laboratory Tests Test 11/12/16 20:38 11/13/16 09:28 Hemoglobin 13.7 12.4 Hematocrit 40.1 36.5 Physical Exam HEENT: Pupils round and reactive to light; normocephalic; atraumatic; no jaundice. Throat is clear. NECK: Neck is supple, no JVD, no lymphadenopathy. CHEST: Chest is clear to auscultation and percussion. CARDIAC: Regular rate and rhythm with no murmur gallop or rubs. ABDOMEN: Soft, nondistended, no abdominal tenderness and discomfort; no hepatosplenomegaly; bowel sounds are present in all four quadrants. EXTREMITIES: No clubbing, cyanosis, or edema. SKIN: Normal; no rash; no jaundice. [employer]: No focal deficits; alert and oriented times three. Assessment and Plan Plan Pleasant 81-year-old gentleman with rectal bleeding, motility most likely diverticular bleed versus ischemia patient had significant constipation before this episode of bleeding, his hemoglobin is stable but still having bloody bowel movements could be just residual from yesterday but he is worried about it and will like to have a colonoscopy 11/13/2016 patient tolerated prep, bleeding, colonoscopy showed diverticular disease and old blood no active bleeding at this time, no sign of ischemia, most likely the bleeding related to diverticular disease, there is a possibility of bleeding coming from small bowel but very unlikely Recommendation Continue clear liquids until tomorrow morning Monitor hemoglobin If hemoglobin is stable advance diet as tolerated Javier Watkins MD Nov 13, 2016 13:01
--- NOTE | 2016-11-13 14:00 | HHI.PR ---
Subjective Remarks Patient denies pain or complaints. No further GI bleeding. Status post colonoscopy today. Objective Vitals Vital Signs Date Time Temp Pulse Resp B/P (MAP) Pulse Ox O2 Delivery O2 Flow Rate FiO2 11/13/16 12:45 98.3 78 16 161/82 (108) 100 11/13/16 12:30 98.4 78 16 154/78 (103) 100 11/13/16 11:58 95.6 84 18 140/80 (100) 97 11/13/16 08:00 96.5 73 18 173/91 (118) 100 11/13/16 04:26 96.9 60 18 140/86 (104) 98 11/13/16 01:02 96.3 57 16 145/81 (102) 97 11/12/16 20:55 96.7 85 18 145/85 (105) 100 11/12/16 20:00 92 11/12/16 16:00 96.0 80 18 153/88 (109) 100 I/O 11/12/16 11/12/16 11/12/16 11/13/16 11/13/16 11/13/16 07:00 15:00 23:00 07:00 15:00 23:00 Intake Total 913 ml 630 ml 1180 ml Output Total 4 ml 1 ml Balance 913 ml 626 ml 1179 ml Intake Oral 630 ml 350 ml IV Total 913 ml 830 ml Stool Total 4 ml 1 ml # Voids 1 6 1 6 1 # Bowel Movements 0 5 Result Diagram: 11/13/16 0928 11/12/16 0616 Objective Remarks GENERAL: Well-nourished, well-developed very pleasant lean elderly male patient. SKIN: Warm and dry. HEAD: Normocephalic. EYES: No scleral icterus. No injection or drainage. NECK: Supple, trachea midline. No JVD or lymphadenopathy. CARDIOVASCULAR: Regular rate and rhythm without murmurs, gallops, or rubs. RESPIRATORY: Breath sounds equal bilaterally. No accessory muscle use. GASTROINTESTINAL: Abdomen soft, non-tender, nondistended. EXTREMITIES: No cyanosis, or edema. NEUROLOGICAL: Awake, alert, and oriented x 3. Non-focal. Cognitively sharp. A/P Problem List: (1) Diverticular disease of large intestine ICD Code: K57.30 - Diverticulosis of large intestine without perforation or abscess without bleeding (2) Diverticular hemorrhage ICD Code: K57.31 - Diverticulosis of large intestine with hemorrhage Status: Acute Assessment and Plan Atrial male with a history of GI bleed from diverticular hemorrhage who is admitted today secondary to GI bleed. Patient reports continuation of GI bleeding as of this morning. She has a mild downward trend in his hemoglobin. Continue to monitor for for resolution of bleeding and monitor hemoglobin levels. GI bleed-likely diverticular bleed Status post colonoscopy today showing no fresh blood, diverticulosis - I discussed the patient with Dr. Watkins Monitor patient overnight is his hemoglobin did decrease slightly to 12.4 today. Repeat H&H in the morning. Hypertension urgency on hypertension Continue hydrochlorothiazide As needed clonidine As needed IV enalapril Hyperlipidemia Continue to follow as an outpatient Diabetes mellitus type 2 Follow blood sugars Insulin sliding scale Diabetic diet Benign prostatic hypertrophy Chronic back pain History of Lyme's disease Gastroesophageal reflux disease Follow clinically DVT prophylaxis SCDs No anticoagulants given active bleed Discharge Planning Discharge home tomorrow if H&H stable. Patricia Gracia MD Nov 13, 2016 14:00
[2016-11-13] MEDS: SODIUM CHLOR 0.9% 1000 ML INJ 1,000 ML IV SCH ×2 (16:56→20:42)
[2016-11-14 01:09] VITALS: BP 149/73; PULSE 77; RESP 18; TEMP 97.3; O2SAT 98
[2016-11-14 04:03] VITALS: BP 139/75; PULSE 70; RESP 20; TEMP 96.9; O2SAT 99
[2016-11-14] MEDS: INSULIN ASPART SUPPLEMENTAL SCALE SQ SCH (05:53)
[2016-11-14] MEDS: SODIUM CHLOR 0.9% 1000 ML INJ 1,000 ML IV SCH (05:53)
[2016-11-14 07:34] LABS: AUTOMATED NEUTROPHIL # 3.6 TH/MM3 (1.8-7.7); BASOPHIL % 0.5 % (0.0-2.0); EOSINOPHIL # 0.1 TH/MM3 (0-0.4); HEMATOCRIT 37.2 % (39.0-51.0); HEMO FLAGS DIFF FINAL; LYMPH % 30.2 % (9.0-44.0); LYMPHOCYTE # 1.9 TH/MM3 (1.0-4.8); MEAN CELL VOLUME 93.8 FL (80.0-100.0); MEAN CORPUSCULAR HEMOGLOBIN 31.6 PG (27.0-34.0); MEAN CORPUSCULAR HGB CONC 33.7 % (32.0-36.0); MONO % 9.2 % (0.0-8.0); NEUT % 58.1 % (16.0-70.0); PLATELET COUNT 159 TH/MM3 (150-450); RED BLOOD COUNT 3.97 MIL/MM3 (4.50-5.90); RED CELL DISTRIBUTION WIDTH 14.9 % (11.6-17.2); WHITE BLOOD COUNT 6.2 TH/MM3 (4.0-11.0)
[2016-11-14] MEDS: HYDROCHLOROTHIAZIDE 12.5 MG CAP PO SCH (08:56)
[2016-11-14] MEDS: DOCUSATE SODIUM 50 MG/SENNA 8.6 MG TAB PO SCH (08:56)
[2016-11-14] MEDS: SODIUM CHLORIDE 0.9% FLUSH 10 ML FLUSH IV FLUSH SCH (08:56)
[2016-11-14] MEDS: PANTOPRAZOLE SOD 20 MG DELAYED RELEASE TAB PO SCH (08:56)
[2016-11-14 09:58] VITALS: BP 156/103; PULSE 83; RESP 15; TEMP 97.1; O2SAT 100
--- NOTE | 2016-11-14 10:11 | HHI.DS ---
Discharge Summary Admission Date Nov 11, 2016 at 08:03 Discharge Date: Nov 14, 2016 Admitting Diagnosis GI bleed (1) Diverticular disease of large intestine ICD Code: K57.30 - Diverticulosis of large intestine without perforation or abscess without bleeding (2) Diverticular hemorrhage ICD Code: K57.31 - Diverticulosis of large intestine with hemorrhage Status: Acute Procedures Colonoscopy Brief History - From Admission 81-year-old male presents to the ER for prachi red blood per rectum. Patient has history of diverticular bleeding requiring transfusion in the past. He is not on any blood thinners. CBC/BMP: 11/14/16 0553 11/12/16 0616 Significant Findings Laboratory Tests Test 11/11/16 15:13 11/12/16 06:16 11/12/16 20:38 11/13/16 09:28 Red Blood Count 4.41 MIL/MM3 (4.50-5.90) Neutrophils (%) (Auto) 74.0 % (16.0-70.0) Total Protein 5.8 GM/DL (6.4-8.2) Albumin 3.3 GM/DL (3.4-5.0) Hemoglobin 12.4 GM/DL (13.0-17.0) Hematocrit 36.5 % (39.0-51.0) Test 11/14/16 05:53 Red Blood Count 3.97 MIL/MM3 (4.50-5.90) Hemoglobin 12.5 GM/DL (13.0-17.0) Hematocrit 37.2 % (39.0-51.0) Monocytes (%) (Auto) 9.2 % (0.0-8.0) PE at Discharge GENERAL: Well-nourished, well-developed very pleasant lean elderly male patient. SKIN: Warm and dry. HEAD: Normocephalic. EYES: No scleral icterus. No injection or drainage. NECK: Supple, trachea midline. No JVD or lymphadenopathy. CARDIOVASCULAR: Regular rate and rhythm without murmurs, gallops, or rubs. RESPIRATORY: Breath sounds equal bilaterally. No accessory muscle use. GASTROINTESTINAL: Abdomen soft, non-tender, nondistended. EXTREMITIES: No cyanosis, or edema. NEUROLOGICAL: Awake, alert, and oriented x 3. Non-focal. Cognitively sharp. Hospital Course Patient was admitted to the hospital and GI was consulted. Fortunately he did not require blood transfusion. Patient underwent colonoscopy yesterday showing diverticulosis and old blood. He has been monitored overnight and hemoglobin has been stable at 12. The patient will be discharged home today and is to follow-up with GI in 2 weeks. Pt Condition on Discharge: Stable Discharge Disposition: Discharge Home Discharge Time: <= 30 minutes Discharge Instructions DIET: Follow Instructions for: As Tolerated, No Restrictions Activities you can perform: Regular-No Restrictions Follow up Referrals: Gastroenterology - 2 Weeks with Javier Watkins MD Continued Medications: Hydrochlorothiazide (Hydrochlorothiazide) 12.5 Mg Cap 12.5 MG PO DIRECTED, #30 CAP 0 Refills Hydrocodone-Acetaminophen (Hydrocodone-Acetaminophen) 10-325 mg Tab 1 TAB PO BID PRN for PAIN, #60 TAB 0 Refills Pantoprazole (Pantoprazole) 20 Mg Tab 20 MG PO DAILY for Reflux, #30 TAB 6 Refills Patricia Garcia MD Nov 14, 2016 10:11
--- NOTE | 2016-11-14 14:01 | EKG ---
Date Performed: 11/13/2016 Time Performed: 05:58:04 PTAGE: 81 years EKG: Sinus rhythm WITH OCCASIONAL VENTRICULAR PREMATURE COMPLEXES POSSIBLE INFERIOR MYOCARDIAL INFARCTION ABNORMAL ECG Compared to prior tracing no significant change PREVIOUS TRACING : 05/01/2016 20.42 DOCTOR: Gabriella Jimenez Interpretating Date/Time 11/14/2016 13:56:41
--- NOTE | 2016-11-15 21:23 | MR ---
cc: IAN WATKINS M.D. DATE 11/15/2016 DATE OF [address] Billy PROCEDURE Colonoscopy ENDOSCOPIST Dr. Watkins MEDICATIONS Propofol administered by anesthesia. INDICATION This is a pleasant 81-year-old gentleman with rectal bleeding. The patient has previous history with rectal bleeding from diverticulosis. PROCEDURE After informing the patient about the procedure and complications, consent was signed. The patient was placed on his left lateral decubitus. Adequate sedation was achieved by propofol administered by anesthesia. Rectal exam was performed. The scope was placed in the rectum, advanced under video guidance to the cecum which was identified by the ileocecal valve and appendiceal orifice. The scope drawn back gradually with visualization of the colonic mucosa down to the rectum. Retroflexion was performed and the scope drawn back without immediate complication. FINDINGS The patient has some dark blood throughout the colon. No active bleeding. No sign of ischemia, but the patient has significant diverticular disease throughout the colon. Most likely this is the reason for the bleeding from diverticular bleed especially that his hemoglobin continued to be stable and without any other symptoms such as pain. RECOMMENDATIONS 1. Clear liquids for today. 2. Continue to follow up the patient's hemoglobin. 3. Further plan depends on how he is doing. MD KEVIN Hidalgo/COLT /12:53 PM /9:16 PM
[2016-11-28] MEDS ORDERED: PARO10TA2 PO (11:08)
[2016-11-28] MEDS ORDERED: HYDR-3583 PO (11:12)
[2016-12-20] MEDS ORDERED: BLOOD GLUCOSE T1 TES (10:57)
[2016-12-20] MEDS ORDERED: HYDR-3583 PO (10:57)
[2016-12-20] MEDS ORDERED: INFL1INJ56 IM (11:02)
[2016-12-25] MEDS ORDERED: PARO10TA2 PO (15:27)
== END 2016-11-14 11:37 | disposition home or self-care (01) | DRG 379 ==
LOC: PHED 05:16 → PHEDA 08:03 → PH3B 09:24
PROVIDERS: ADMIT Family Medicine; ATTEND Family Medicine
PROC: 0DJD8ZZ Inspection of Lower Intestinal Tract, Via Natural or Artificial Opening Endoscopic (ICD-10-PCS; principal; 2016-11-11)
DX: K92.2 Gastrointestinal hemorrhage, unspecified (principal); E11.9 Type 2 diabetes mellitus without complications; I10 Essential (primary) hypertension; E78.5 Hyperlipidemia, unspecified; G89.4 Chronic pain syndrome; K21.9 Gastro-esophageal reflux disease without esophagitis; K59.00 Constipation, unspecified; N40.0 Benign prostatic hyperplasia without lower urinary tract symptoms; Z87.891 Personal history of nicotine dependence; H91.90 Unspecified hearing loss, unspecified ear; K57.90 Diverticulosis of intestine, part unspecified, without perforation or abscess without bleeding
CPT/HCPCS: 74177; 80053; 81001; 82948; 85014; 85018; 85025; 85610; 85730; 86850; 86900; 86901; 93005; 96360; 96361; J1815; J7030; Q9967

== ENCOUNTER 2017-07-18 16:33 | Observation (INO) | payer MEDICARE ==
[~2017-07-18] VITALS: Ht 175.3 cm; Wt 60.1 kg
[~2017-07-18 16:33] MED LIST changes: +BLOOD GLUCOSE T1 TES; +PARO10TA2 PO; -TAMS5CAP PO
[2017-07-18 16:51] VITALS: BP 139/89; PULSE 97; RESP 16; TEMP 97.6; O2SAT 99
[2017-07-18] MEDS ORDERED: SODIUM CHLORIDE 0.9% FLUSH 10 ML FLUSH IVF PRN (17:30)
[2017-07-18 18:16] LABS: ALBUMIN 4.1 GM/DL (3.4-5.0); ALT (GPT) 21 U/L (12-78); AST (GOT) 21 U/L (15-37); BICARBONATE 28.3 MEQ/L (21.0-32.0); BLOOD UREA NITROGEN 22 MG/DL (7-18); CALCIUM 9.3 MG/DL (8.5-10.1); CHLORIDE 98 MEQ/L (98-107); GLOMERULAR FILTRATION RATE 92 ML/MIN (>89); GLUCOSE,RANDOM 122 MG/DL (74-106); INTERNATIONAL NORMALIZED RATIO 1.1 RATIO; PROTHROMBIN TIME - PATIENT 11.3 SEC (9.8-11.6); SODIUM (NA) 135 MEQ/L (136-145)
[2017-07-18 18:17] LABS: AUTOMATED NEUTROPHIL # 4.3 TH/MM3 (1.8-7.7); BASOPHIL % 0.5 % (0.0-2.0); EOSINOPHIL % 0.5 % (0.0-4.0); LYMPH % 19.4 % (9.0-44.0); LYMPHOCYTE # 1.2 TH/MM3 (1.0-4.8); MEAN CELL VOLUME 81.1 FL (80.0-100.0); MEAN CORPUSCULAR HEMOGLOBIN 26.4 PG (27.0-34.0); MEAN CORPUSCULAR HGB CONC 32.5 % (32.0-36.0); MEAN PLATELET VOLUME 9.3 FL (7.0-11.0); MONO % 9.4 % (0.0-8.0); MONOCYTE # 0.6 TH/MM3 (0-0.9); NEUT % 70.2 % (16.0-70.0); PLATELET COUNT 184 TH/MM3 (150-450); RED BLOOD COUNT 4.56 MIL/MM3 (4.50-5.90); RED CELL DISTRIBUTION WIDTH 16.3 % (11.6-17.2); WHITE BLOOD COUNT 6.1 TH/MM3 (4.0-11.0)
[2017-07-18 18:18] LABS: ALKALINE PHOSPHATASE 83 U/L (45-117); TOTAL BILIRUBIN ADULT 0.4 MG/DL (0.2-1.0); TOTAL PROTEIN 7.2 GM/DL (6.4-8.2)
--- NOTE | 2017-07-18 19:13 | PD ---
HPI Chief Complaint: GI Complaint Time Seen by Provider: 16:52 Travel History International Travel<30 days: No Contact w/Intl Traveler<30days: No Traveled to known affect area: No History of Present Illness HPI Is an 82-year-old man presents to the emergency department complaining of bright red blood per rectum. Little bit darker stools. All going on earlier today. Multiple episodes of loose stools with blood. Minimal abdominal cramping. No nausea or vomiting. No real abdominal pain. No shortness of breath chest pain or lightheadedness. Otherwise has been feeling well. 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 SKIN: Focused skin assessment warm/dry. HEAD: Atraumatic. Normocephalic. EYES: Pupils equal and round. No scleral icterus. No injection or drainage. ENT: No nasal bleeding or discharge. Mucous membranes pink and moist. NECK: Trachea midline. No JVD. CARDIOVASCULAR: Regular rate and rhythm. No murmur appreciated. RESPIRATORY: No accessory muscle use. Clear to auscultation. Breath sounds equal bilaterally. GASTROINTESTINAL: Abdomen soft, non-tender, nondistended. Hepatic and splenic margins not palpable. MUSCULOSKELETAL: No obvious deformities. No edema. NEUROLOGICAL: Awake and alert. No obvious cranial nerve deficits. Motor grossly within normal limits. Normal speech. Data Data Last Documented VS Vital Signs Date Time Temp Pulse Resp B/P (MAP) Pulse Ox O2 Delivery O2 Flow Rate FiO2 07/18/17 16:51 97.6 97 16 139/89 (106) 99 Orders Orders Complete Blood Count With Diff (07/18/17:) Comprehensive Metabolic Panel (07/18/17) Prothrombin Time / Inr (Pt) (07/18/17:) Act Partial Throm Time (Ptt) (07/18/17:) Urinalysis - C+S If Indicated (07/18/17:) Type And Screen (07/18/17) Red Blood Cells (Rbc) (07/18/17) Ecg Monitoring (07/18/17) Iv Access Insert/Monitor (07/18/17) Oximetry (07/18/17) Sodium Chloride 0.9% Flush (Ns Flush) (07/18/17 17:30) Admit Order (Ed Use Only) (07/18/17 ) Labs Laboratory Tests Test 07/18/17 17:14 White Blood Count 6.1 TH/MM3 Red Blood Count 4.56 MIL/MM3 Hemoglobin 12.0 GM/DL Hematocrit 37.0 % Mean Corpuscular Volume 81.1 FL Mean Corpuscular Hemoglobin 26.4 PG Mean Corpuscular Hemoglobin Concent 32.5 % Red Cell Distribution Width 16.3 % Platelet Count 184 TH/MM3 Mean Platelet Volume 9.3 FL Neutrophils (%) (Auto) 70.2 % Lymphocytes (%) (Auto) 19.4 % Monocytes (%) (Auto) 9.4 % Eosinophils (%) (Auto) 0.5 % Basophils (%) (Auto) 0.5 % Neutrophils # (Auto) 4.3 TH/MM3 Lymphocytes # (Auto) 1.2 TH/MM3 Monocytes # (Auto) 0.6 TH/MM3 Eosinophils # (Auto) 0.0 TH/MM3 Basophils # (Auto) 0.0 TH/MM3 CBC Comment DIFF FINAL Differential Comment Prothrombin Time 11.3 SEC Prothromb Time International Ratio 1.1 RATIO Activated Partial Thromboplast Time 28.7 SEC Blood Urea Nitrogen 22 MG/DL Creatinine 0.80 MG/DL Random Glucose 122 MG/DL Total Protein 7.2 GM/DL Albumin 4.1 GM/DL Calcium Level 9.3 MG/DL Alkaline Phosphatase 83 U/L Aspartate Amino Transf (AST/SGOT) 21 U/L Alanine Aminotransferase (ALT/SGPT) 21 U/L Total Bilirubin 0.4 MG/DL Sodium Level 135 MEQ/L Potassium Level 3.8 MEQ/L Chloride Level 98 MEQ/L Carbon Dioxide Level 28.3 MEQ/L Anion Gap 9 MEQ/L Estimat Glomerular Filtration Rate 92 ML/MIN MDM Medical Decision Making Medical Screen Exam Complete: Yes Emergency Medical Condition: Yes Interpretation(s) LABS: CBC remarkable for mild anemia. CMP is unremarkable UA is unremarkable Differential Diagnosis GI bleed, diverticulosis, AV malformation, malignancy, other Narrative Course Medical decision making Is an 82-year-old man presents to the emergency department complaining of lower GI bleeding. He looks well. This is likely lower. He has a history of diverticulitis. No abdominal pain. Benign exam. Recommend admission for observation. Diagnosis Primary Impression: Rectal hemorrhage Admitting Information Admitting Physician Requests: Admit Tripp Reddy MD July 18, 2017 19:13
[2017-07-18] MEDS ORDERED: NALOXONE HCL 0.4 MG/ML AMP IV PUSH PRN (19:15)
[2017-07-18] MEDS ORDERED: MAGNESIUM HYDROXIDE SUSP 30 ML CUP PO PRN (19:15)
[2017-07-18] MEDS ORDERED: SENNOSIDES 8.6 MG TAB PO PRN (19:15)
[2017-07-18] MEDS ORDERED: ZOLPIDEM TARTRATE 5 MG TAB PO PRN (19:15)
[2017-07-18] MEDS ORDERED: LACTULOSE SYRUP 20 GM/30 ML CUP PO PRN (19:15)
[2017-07-18] MEDS ORDERED: BISACODYL 10 MG SUPP RECTAL PRN (19:15)
[2017-07-18] MEDS ORDERED: ACETAMINOPHEN 325 MG TAB PO PRN (19:15)
[2017-07-18] MEDS ORDERED: SODIUM CHLORIDE 0.9% FLUSH 10 ML FLUSH IV FLUSH PRN (19:15)
[2017-07-18 19:27] VITALS: BP 174/88; PULSE 86; RESP 16; O2SAT 96
[2017-07-18] MEDS: SODIUM CHLOR 0.9% 1000 ML INJ 1,000 ML IV SCH (19:29)
--- NOTE | 2017-07-18 19:41 | HHI.HP ---
[facility] Service Family Medicine Primary Care Physician Ever Harding MD Admission Diagnosis Lower GI bleed Diagnoses: International Travel<30 Days: No Contact w/Intl Traveler<30days: No Known Affected Area: No (Dominick Cochran MD R2) Review of Systems Constitutional: DENIES: Fever, Chills Endocrine: DENIES: Polyuria Eyes: DENIES: Blurred vision Ears, nose, mouth, throat: DENIES: Throat pain, Ear Pain Respiratory: DENIES: Cough, Wheezing, Shortness of breath Cardiovascular: DENIES: Chest pain, Palpitations Gastrointestinal: COMPLAINS OF: Bloody stools, Diarrhea, DENIES: Abdominal pain , Black stools, Constipation, Nausea, Vomiting Genitourinary: DENIES: Urinary frequency, Dysuria Musculoskeletal: COMPLAINS OF: Back pain, DENIES: Muscle aches Integumentary: DENIES: Rash Hematologic/lymphatic: DENIES: Bruising Neurologic: DENIES: Headache, Localized weakness Psychiatric: DENIES: Anxiety, Depression (Dominick Cochran MD R2) Past Family Social History Past Medical History Diverticulosis, h/o diverticulitis T2DM - diet controlled Hypertension H/o chicken pox H/o incontinence and UTIs Past Surgical History TURP - 2012 Dental surgery Cystoscopy - 2016 EGD/colonoscopy - 2016 Cataract extraction b/l Reported Medications Reported Meds & Active Scripts Active Hydrocodone-Acetaminophen 10-325 mg Tab 1 Tab PO BID PRN Paroxetine (Paroxetine HCl) 10 Mg Tab 10 Mg PO DAILY Blood Glucose Test Strips Strips Strip Ea .ROUTE DIRECTED Pantoprazole (Pantoprazole Sodium) 20 Mg Tab 20 Mg PO DAILY Reported Hydrochlorothiazide 12.5 Mg Cap 12.5 Mg PO DIRECTED (Dominick Cochran MD R2) Allergies: Coded Allergies: *MDRO Multi-Drug Resistant Organism (Verified Adverse Reaction, Unknown, ESBL, 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 Cool and dry. HEAD: NC/AT EYES: PERRL. EOMI. No conjunctival injection or drainage. ENT: MMM, OP without erythema, tonsillar swelling, or exudate. NECK: Supple, no visible masses. No JVD. CARDIOVASCULAR: NRRR. Normal S1/S2. No MRG RESPIRATORY: CTAB. No crackles or wheezes. GASTROINTESTINAL: Abdomen soft, non-distended, non-tender. No hepato- splenomegaly or palpable masses. MUSCULOSKELETAL: Extremities without clubbing, cyanosis, or edema. NEUROLOGICAL: Awake and alert. Cranial nerves II through XII grossly intact. Moves all extremities without difficulty. Normal speech. Laboratory Laboratory Tests Test 07/18/17 17:14 White Blood Count 6.1 Red Blood Count 4.56 Hemoglobin 12.0 Hematocrit 37.0 Mean Corpuscular Volume 81.1 Mean Corpuscular Hemoglobin 26.4 Mean Corpuscular Hemoglobin Concent 32.5 Red Cell Distribution Width 16.3 Platelet Count 184 Mean Platelet Volume 9.3 Neutrophils (%) (Auto) 70.2 Lymphocytes (%) (Auto) 19.4 Monocytes (%) (Auto) 9.4 Eosinophils (%) (Auto) 0.5 Basophils (%) (Auto) 0.5 Neutrophils # (Auto) 4.3 Lymphocytes # (Auto) 1.2 Monocytes # (Auto) 0.6 Eosinophils # (Auto) 0.0 Basophils # (Auto) 0.0 CBC Comment DIFF FINAL Differential Comment Prothrombin Time 11.3 Prothromb Time International Ratio 1.1 Activated Partial Thromboplast Time 28.7 Blood Urea Nitrogen 22 Creatinine 0.80 Random Glucose 122 Total Protein 7.2 Albumin 4.1 Calcium Level 9.3 Alkaline Phosphatase 83 Aspartate Amino Transf (AST/SGOT) 21 Alanine Aminotransferase (ALT/SGPT) 21 Total Bilirubin 0.4 Sodium Level 135 Potassium Level 3.8 Chloride Level 98 Carbon Dioxide Level 28.3 Anion Gap 9 Estimat Glomerular Filtration Rate 92 (Dominick Cochran MD R2) Result Diagram: 07/18/17 1714 07/18/171713 Caprini VTE Risk Assessment Caprini VTE Risk Assessment: Mod/High Risk (score >= 2) VTE Pharm Contraindication: Active bleeding (Dominick Cochran MD R2) Assessment and Plan Assessment and Plan 82 yo male with h/o depression, diverticulosis presenting with: (Dominick Cochran MD R2) Attending Attestation Patient seen and examined. Discussed with Dr. Clark. Agree with physical findings, assessment and plan as documented by Dr. Cochran. (FedericoattAl childress Jr., MD) Problem List: (1) GI (gastrointestinal bleed) ICD Codes: K92.2 - GI (gastrointestinal bleed) Status: Acute Plan: Hemodynamically stable, with gross BRBPR and associated diarrhea Most likely diagnosis is diverticular bleed given prior history Colonoscopy Nov 2016 showed old blood, diverticular disease -Trend H/H Q6H -Protonix 40 mg IV Q12H -Type and cross 4 units -Transfuse for Hgb < 10 -Consult GI to evaluate need for repeat scope -NPO until determined whether or not scope will be performed -IVF as below (2) Hyponatremia ICD Codes: E87.1 - Hypo-osmolality and hyponatremia Status: Acute Plan: Most likely chronic -IVF as below (3) Depression ICD Codes: F32.9 - Major depressive disorder, single episode, unspecified Status: Chronic Plan: Stable, continue home Paxil (4) T2DM (type 2 diabetes mellitus) ICD Codes: E11.9 - Type 2 diabetes mellitus without complications Plan: Diet-controlled -Check sugar AC/HS -Goal 140-180 -Add insulin coverage if indicated based on blood sugar (5) Essential hypertension ICD Codes: I10 - Essential (primary) hypertension Plan: At home reports taking HCTZ only if his BP is above 150 -Monitor BP -Give daily HCTZ dose if persistently > 160 (6) FEN/PPX Plan: Fluids: NS @ 100 cc/hr Elecs: Monitor and replete PRN Nutrition: NPO DVT: SCDs Code status: Full code (Dominick Cochran MD R2) Physician Certification 2 Midnight Certification Type: Admission for Inpatient Services Order for Inpatient Services The services are ordered in accordance with Medicare regulations or non- Medicare payer requirements, as applicable. In the case of services not specified as inpatient-only, they are appropriately provided as inpatient services in accordance with the 2-midnight benchmark. Estimated LOS (days): 2 days is the estimated time the patient will need to remain in the hospital, assuming treatment plan goals are met and no additional complications. Post-Hospital Plan: Home (Dominick Cochran MD R2) Problem Qualifiers (1) GI (gastrointestinal bleed): Qualified Codes: K92.2 - Gastrointestinal hemorrhage, unspecified (2) Depression: Qualified Codes: F32.9 - Major depressive disorder, single episode, unspecified (3) T2DM (type 2 diabetes mellitus): Qualified Codes: E11.9 - Type 2 diabetes mellitus without complications Dominick Cochran MD R2 July 18, 2017 19:41 Al Rosen Jr., MD July 19, 2017 14:46
[2017-07-18 20:30] VITALS: BP 157/88; PULSE 79; RESP 16; TEMP 97.5; O2SAT 100
[2017-07-18] MEDS: DOCUSATE SODIUM 50 MG/SENNA 8.6 MG TAB PO SCH (21:00)
[2017-07-18] MEDS: SODIUM CHLORIDE 0.9% FLUSH 10 ML FLUSH IV FLUSH SCH (23:05)
[2017-07-18] MEDS: PANTOPRAZOLE SODIUM 40 MG VIAL IV PUSH SCH (23:06)
[2017-07-19] VITALS: BP 149/82; PULSE 74; RESP 16; TEMP 97.9; O2SAT 98
[2017-07-19 00:09] LABS: HEMATOCRIT 32.3 % (39.0-51.0); HEMOGLOBIN 10.5 GM/DL (13.0-17.0)
[2017-07-19 04:00] VITALS: BP 150/88; PULSE 77; RESP 16; TEMP 98; O2SAT 99
[2017-07-19] MEDS: SODIUM CHLOR 0.9% 1000 ML INJ 1,000 ML IV SCH ×3 (06:30→20:00)
[2017-07-19] MEDS: PARoxetine HCL 20 MG TAB PO SCH (07:58)
[2017-07-19] MEDS: PANTOPRAZOLE SODIUM 40 MG VIAL IV PUSH SCH ×2 (07:58→19:50)
[2017-07-19] MEDS: DOCUSATE SODIUM 50 MG/SENNA 8.6 MG TAB PO SCH ×2 (07:58→19:50)
[2017-07-19 08:00] VITALS: BP 148/78; PULSE 85; RESP 19; TEMP 98.1; O2SAT 98
[2017-07-19] MEDS: SODIUM CHLORIDE 0.9% FLUSH 10 ML FLUSH IV FLUSH SCH ×2 (08:01→19:50)
[2017-07-19] MEDS: ACETAMINOPHEN/HYDROcodone 325 MG/10 MG TAB PO PRN (08:06)
[2017-07-19 08:33] LABS: AUTOMATED NEUTROPHIL # 3.4 TH/MM3 (1.8-7.7); BASOPHIL % 0.5 % (0.0-2.0); EOSINOPHIL % 0.3 % (0.0-4.0); HEMOGLOBIN 10.9 GM/DL (13.0-17.0); LYMPH % 21.1 % (9.0-44.0); MEAN CORPUSCULAR HEMOGLOBIN 26.4 PG (27.0-34.0); MONO % 7.6 % (0.0-8.0); MONOCYTE # 0.4 TH/MM3 (0-0.9); NEUT % 70.5 % (16.0-70.0); PLATELET COUNT 171 TH/MM3 (150-450); RED BLOOD COUNT 4.13 MIL/MM3 (4.50-5.90); RED CELL DISTRIBUTION WIDTH 16.5 % (11.6-17.2); WHITE BLOOD COUNT 4.8 TH/MM3 (4.0-11.0)
[2017-07-19 09:00] LABS: BICARBONATE 23.7 MEQ/L (21.0-32.0); CREATININE 0.62 MG/DL (0.60-1.30)
--- NOTE | 2017-07-19 10:19 | HHI.FPPN ---
Subjective Remarks Mr. Marquis was afebrile with mild HTN overnight (140's-170's/80's). 1600 ml output overnight. Patient reports that until 4 am last night, he was having diarrhea mixed with blood every ~45 minutes in associated with "gas" and sensation of bowel activity ; after 4 am patient's bloody stool and sensation of "gas"iness has improved significantly. Patient had a watery bowel movement this morning without blood. No abdominal pain. Patient otherwise states that he is doing well. He is breathing well; no shortness of breath. No chest pain or lower extremity swelling. He has had some weakness when initially ambulating but not more than usual. No urinary concerns. (Clint Clark MD R3) Objective Vitals Vital Signs Date Time Temp Pulse Resp B/P (MAP) Pulse Ox O2 Delivery O2 Flow Rate FiO2 07/19/17 08:00 98.1 85 19 148/78 (101) 98 07/19/17 04:00 98.0 77 16 150/88 (108) 99 07/19/17 00:00 97.9 74 16 149/82 (104) 98 07/18/17 20:45 07/18/17 20:30 97.5 79 16 157/88 (111) 100 07/18/17 19:27 86 16 174/88 (116) 96 Room Air 07/18/17 16:51 97.6 97 16 139/89 (106) 99 I/O 07/18/17 07/18/17 07/18/17 07/19/17 07/19/17 07/19/17 07:00 15:00 23:00 07:00 15:00 23:00 Intake Total 240 ml Output Total 1600 ml Balance -1360 ml Intake Oral 240 ml Output Urine Total 1600 ml # Bowel Movements 1 1 (Clint Clark MD R3) Result Diagram: 07/19/1746 07/19/17 0746 Objective Remarks GENERAL: WDWN thin elderly white male in NAD SKIN: No rashes lesions. Cool and dry. HEAD: NC/AT EYES: PERRL. EOMI. No conjunctival injection or drainage. CARDIOVASCULAR: NRRR. Normal S1/S2. No MRG RESPIRATORY: CTAB. No crackles or wheezes. GASTROINTESTINAL: Abdomen soft, non-distended, non-tender. Normal bowel sounds MUSCULOSKELETAL: Extremities without asymmetry or calf pain. Grossly normal motor function and range of motion. NEUROLOGICAL: Awake and alert. Cranial nerves grossly intact. Grossly normal motor function and ROM. Normal speech. (Clint Clark MD R3) A/P Assessment and Plan 82 yo male with h/o depression, diverticulosis presenting with: (Clint Clark MD R3) Attending Attestation Patient seen and examined. Discussed with Dr. Clark. For details of SH, FH, PMH , ROS please see Dr. Cochran's note. Agree with assessment and plan as documented. (PrevatteAl Jr., MD) Problem List: (1) GI (gastrointestinal bleed) ICD Codes: K92.2 - GI (gastrointestinal bleed) Status: Acute Plan: 07/19- Patient's rectal bleeding stopped overnight Impression: Hemodynamically stable, with gross BRBPR and associated diarrhea. Most likely diagnosis is diverticular bleed given prior history Colonoscopy Nov 2016 showed old blood, diverticular disease Labs: Hgb 12 (07/18)-> 10.5 -> 10.9 (07/19) -patient typed/crossed for 4 U pRBC -Trend H/H Q6H -Protonix 40 mg IV Q12H -Transfuse for Hgb < 10 -GI consulted -NPO until determined whether or not scope will be performed -IVF as below (2) Hyponatremia ICD Codes: E87.1 - Hypo-osmolality and hyponatremia Status: Acute Plan: Most likely chronic -IVF as below (3) Depression ICD Codes: F32.9 - Major depressive disorder, single episode, unspecified Status: Chronic Plan: Stable, continue home Paxil (4) T2DM (type 2 diabetes mellitus) ICD Codes: E11.9 - Type 2 diabetes mellitus without complications Plan: Diet-controlled -Check sugar AC/HS -Goal 140-180 -Add insulin coverage if indicated based on blood sugar (5) Essential hypertension ICD Codes: I10 - Essential (primary) hypertension Plan: Impression: At home reports taking HCTZ only if his BP is above 150 -Monitor BP -Will start HCTZ while inpatient; will Give daily HCTZ dose if persistently > 160 -Will add PRN hydralazine for refractory HTN (6) FEN/PPX Plan: Fluids: NS @ 100 cc/hr Elecs: Monitor and replete PRN Nutrition: NPO DVT: SCDs Code status: Full code (Clint Clark MD R3) Problem Qualifiers (1) GI (gastrointestinal bleed): Qualified Codes: K92.2 - Gastrointestinal hemorrhage, unspecified (2) Depression: Qualified Codes: F32.9 - Major depressive disorder, single episode, unspecified (3) T2DM (type 2 diabetes mellitus): Qualified Codes: E11.9 - Type 2 diabetes mellitus without complications Clint Clark MD R3 July 19, 2017 10:19 PrevattAl childress Jr., MD July 19, 2017 14:53
[2017-07-19 12:00] VITALS: BP 172/89; PULSE 60; RESP 19; TEMP 97.2; O2SAT 96
[2017-07-19] MEDS ORDERED: HYDROCHLOROTHIAZIDE 12.5 MG CAP PO SCH (12:15)
[2017-07-19] MEDS ORDERED: PEG (High)/E-LYTE SOLN 4000 ML BTL PO ONE (14:15)
--- NOTE | 2017-07-19 14:33 | PD.CONS ---
HPI History of Present Illness This is a 82 year old male with hx diverticulosis and diverticulitis who presented with rectal bleeding. yesterday he began having frequent stools mixed with bright red blood. Since onset the bleeding is lessening. He denies abd pain, n/v, black tarry stools. He says he has lost some weight but not recently. He was evaluated by our service for similar last year and had a colonoscopy 11/2016 revealing diverticular disease with no active bleed. Not on blood thinners. PFSH Past Medical History diverticulosis diverticulitis DM Past Surgical History TURP CYSTO Coded Allergies: *MDRO Multi-Drug Resistant Organism (Verified Adverse Reaction, Unknown, ESBL, 07/18/17) ESBL Escherichia coli (blood & urine) - 08/23/16 Family History mother - etoh abuse Social History quti smoking 1950 rare etoh Review of Systems Constitutional: DENIES: Fever Endocrine: DENIES: Polydipsia Eyes: DENIES: Blurred vision Ears, nose, mouth, throat: DENIES: Hearing loss Respiratory: DENIES: Cough Cardiovascular: DENIES: Chest pain Gastrointestinal: COMPLAINS OF: Bloody stools, DENIES: Abdominal pain, Black stools, Nausea, Vomiting Genitourinary: DENIES: Hematuria Musculoskeletal: DENIES: Muscle aches Integumentary: DENIES: Abnormal pigmentation Hematologic/lymphatic: DENIES: Bruising Immunologic/allergic: DENIES: Eczema Neurologic: DENIES: Abnormal gait Psychiatric: DENIES: Anxiety GI Exam Vitals I&O Vital Signs Date Time Temp Pulse Resp B/P (MAP) Pulse Ox O2 Delivery O2 Flow Rate FiO2 07/19/17 12:00 97.2 60 19 172/89 (116) 96 07/19/17 08:00 98.1 85 19 148/78 (101) 98 07/19/17 04:00 98.0 77 16 150/88 (108) 99 07/19/17 00:00 97.9 74 16 149/82 (104) 98 07/18/17 20:45 07/18/17 20:30 97.5 79 16 157/88 (111) 100 07/18/17 19:27 86 16 174/88 (116) 96 Room Air 07/18/17 16:51 97.6 97 16 139/89 (106) 99 I/O 5/16/18 507/18/17 07/19/17 07/19/17 07/19/17 07:00 15:00 23:00 07:00 15:00 23:00 Intake Total 240 ml Output Total 1600 ml Balance -1360 ml Intake Oral 240 ml Output Urine Total 1600 ml # Bowel Movements 1 1 Laboratory Test 07/18/17 17:14 07/18/17 23:49 07/19/17 07:46 White Blood Count 6.1 TH/MM3 4.8 TH/MM3 Red Blood Count 4.56 MIL/MM3 4.13 MIL/MM3 Hemoglobin 12.0 GM/DL 10.5 GM/DL 10.9 GM/DL Hematocrit 37.0 % 32.3 % 33.0 % Mean Corpuscular Volume 81.1 FL 80.0 FL Mean Corpuscular Hemoglobin 26.4 PG 26.4 PG Mean Corpuscular Hemoglobin Concent 32.5 % 33.0 % Red Cell Distribution Width 16.3 % 16.5 % Platelet Count 184 TH/MM3 171 TH/MM3 Mean Platelet Volume 9.3 FL 9.0 FL Neutrophils (%) (Auto) 70.2 % 70.5 % Lymphocytes (%) (Auto) 19.4 % 21.1 % Monocytes (%) (Auto) 9.4 % 7.6 % Eosinophils (%) (Auto) 0.5 % 0.3 % Basophils (%) (Auto) 0.5 % 0.5 % Neutrophils # (Auto) 4.3 TH/MM3 3.4 TH/MM3 Lymphocytes # (Auto) 1.2 TH/MM3 1.0 TH/MM3 Monocytes # (Auto) 0.6 TH/MM3 0.4 TH/MM3 Eosinophils # (Auto) 0.0 TH/MM3 0.0 TH/MM3 Basophils # (Auto) 0.0 TH/MM3 0.0 TH/MM3 CBC Comment DIFF FINAL DIFF FINAL Differential Comment Prothrombin Time 11.3 SEC Prothromb Time International Ratio 1.1 RATIO Activated Partial Thromboplast Time 28.7 SEC Blood Urea Nitrogen 22 MG/DL 20 MG/DL Creatinine 0.80 MG/DL 0.62 MG/DL Random Glucose 122 MG/DL 115 MG/DL Total Protein 7.2 GM/DL Albumin 4.1 GM/DL Calcium Level 9.3 MG/DL 9.0 MG/DL Alkaline Phosphatase 83 U/L Aspartate Amino Transf (AST/SGOT) 21 U/L Alanine Aminotransferase (ALT/SGPT) 21 U/L Total Bilirubin 0.4 MG/DL Sodium Level 135 MEQ/L 136 MEQ/L Potassium Level 3.8 MEQ/L 3.8 MEQ/L Chloride Level 98 MEQ/L 101 MEQ/L Carbon Dioxide Level 28.3 MEQ/L 23.7 MEQ/L Anion Gap 9 MEQ/L 11 MEQ/L Estimat Glomerular Filtration Rate 92 ML/MIN 124 ML/MIN Physical Examination HEENT: PERRL; normocephalic; atraumatic; no jaundice. CHEST: CTA CARDIAC: RRR ABDOMEN: Soft, nondistended, nontender; no hepatosplenomegaly; bowel sounds are present in all four quadrants. EXTREMITIES: No clubbing, cyanosis, or edema. SKIN: Normal; no rash; no jaundice. HOT OILER: No focal deficits; alert and oriented times three. Assessment and Plan Plan ASSESSMENT - rectal bleeding - onset yesterday, frequent BMs, blood intermingled with stool. denies bleeding independently of stool. denies any other GI sx. last colonoscopy 11/2016 found diverticulosis. this is likely diverticular bleed. - anemia - hgb dropped from 12. to 10.9. 2/2 above - weight loss - admits weight loss but unable to pinpoint timing PLAN - EGD and colonoscopy tomorrow - obtain consent - clears today - NPO after MN - GoLYtely prep - monitor HH - prbc as needed - bleed scan if active bleed - further recs to follow pt seen by myself and Dr Shafer and this note is on her behalf Nicole Ghosh July 19, 2017 14:33
[2017-07-19 16:00] VITALS: BP 167/80; PULSE 85; RESP 19; TEMP 98.4; O2SAT 95
[2017-07-19 20:00] VITALS: BP 195/88; PULSE 80; RESP 20; TEMP 97.5; O2SAT 98
[2017-07-19 20:43] LABS: HEMATOCRIT 30.9 % (39.0-51.0); MEAN CELL VOLUME 80.6 FL (80.0-100.0); MEAN CORPUSCULAR HEMOGLOBIN 26.1 PG (27.0-34.0); MEAN CORPUSCULAR HGB CONC 32.4 % (32.0-36.0); PLATELET COUNT 177 TH/MM3 (150-450); RED BLOOD COUNT 3.83 MIL/MM3 (4.50-5.90); RED CELL DISTRIBUTION WIDTH 16.2 % (11.6-17.2); WHITE BLOOD COUNT 5.1 TH/MM3 (4.0-11.0)
[2017-07-20] VITALS (7 sets, daily range): BP systolic 162–201; BP diastolic 74–98; PULSE 82–93; RESP 18–20; TEMP 97.2–98.7; O2SAT 97–100
[2017-07-20] MEDS: hydrALAZINE HCL 10 MG TAB PO PRN ×2 (00:50→14:44)
[2017-07-20] MEDS: HYDROCHLOROTHIAZIDE 12.5 MG CAP PO PRN (04:45)
[2017-07-20 06:05] LABS: AUTOMATED NEUTROPHIL # 2.9 TH/MM3 (1.8-7.7); BASOPHIL % 0.6 % (0.0-2.0); EOSINOPHIL # 0.1 TH/MM3 (0-0.4); EOSINOPHIL % 1.1 % (0.0-4.0); HEMATOCRIT 31.8 % (39.0-51.0); HEMOGLOBIN 10.7 GM/DL (13.0-17.0); LYMPH % 27.1 % (9.0-44.0); LYMPHOCYTE # 1.3 TH/MM3 (1.0-4.8); MEAN CELL VOLUME 80.3 FL (80.0-100.0); MEAN CORPUSCULAR HEMOGLOBIN 26.9 PG (27.0-34.0); MEAN CORPUSCULAR HGB CONC 33.5 % (32.0-36.0); MONO % 10.6 % (0.0-8.0); MONOCYTE # 0.5 TH/MM3 (0-0.9); NEUT % 60.6 % (16.0-70.0); PLATELET COUNT 181 TH/MM3 (150-450); RED BLOOD COUNT 3.96 MIL/MM3 (4.50-5.90); RED CELL DISTRIBUTION WIDTH 16.4 % (11.6-17.2); WHITE BLOOD COUNT 4.8 TH/MM3 (4.0-11.0)
[2017-07-20] MEDS ORDERED: CHLORHEXIDINE GLUCONATE 2 % 1 PACK (2 CLOTHS) TOPICAL PRN (06:30)
[2017-07-20] MEDS ORDERED: METOPROLOL TARTRATE 25 MG TAB PO PRN (06:30)
[2017-07-20] MEDS ORDERED: LACTATED RINGER'S 1000 ML IV PRN (06:30)
[2017-07-20] MEDS ORDERED: SODIUM CHLORID 0.9% 500 ML IV PRN (06:30)
[2017-07-20] MEDS ORDERED: POVIDONE IODINE 5% (ANTISEPSIS KIT) 4 APPLICATIONS EACH NARE PRN (06:30)
[2017-07-20 06:50] LABS: BICARBONATE 26.1 MEQ/L (21.0-32.0); CALCIUM 8.6 MG/DL (8.5-10.1); CREATININE 0.57 MG/DL (0.60-1.30)
[2017-07-20] MEDS: PARoxetine HCL 20 MG TAB PO SCH (07:34)
[2017-07-20] MEDS: DOCUSATE SODIUM 50 MG/SENNA 8.6 MG TAB PO SCH ×2 (07:34→21:35)
[2017-07-20] MEDS: PANTOPRAZOLE SODIUM 40 MG VIAL IV PUSH SCH ×2 (07:34→21:34)
[2017-07-20] MEDS: SODIUM CHLORIDE 0.9% FLUSH 10 ML FLUSH IV FLUSH SCH ×2 (07:34→21:00)
[2017-07-20] MEDS: ACETAMINOPHEN/HYDROcodone 325 MG/10 MG TAB PO PRN (07:38)
--- NOTE | 2017-07-20 10:34 | HHI.FPPN ---
Subjective Remarks Mr. Marquis was afebrile and hypertensive overnight (max BP 201/93). Patient did well preparing for colonoscopy overnight; he denies additional rectal bleeding overnight. No chest pain, shortness of breath, abnormal urination, or other symptoms overnight. Patient aware of elevated blood pressure; he attributes this to lack of sleep. Patient intermittently became tearful talking about his 's . Objective Vitals Vital Signs Date Time Temp Pulse Resp B/P (MAP) Pulse Ox O2 Delivery O2 Flow Rate FiO2 07/20/17 08:00 98.7 89 18 177/74 (108) 97 07/20/17 04:00 98.0 90 20 177/86 (116) 100 07/20/17 00:00 82 182/90 (120) 07/20/17 00:00 97.5 90 20 201/93 (129) 100 07/19/17 20:00 97.5 80 20 195/88 (123) 98 07/19/17 16:00 98.4 85 19 167/80 (109) 95 07/19/17 12:00 97.2 60 19 172/89 (116) 96 I/O 07/19/17 07/19/17 07/19/17 07/20/17 07/20/17 07/20/17 07:00 15:00 23:00 07:00 15:00 23:00 Intake Total 240 ml 2800 ml Output Total 1600 ml Balance -1360 ml 2800 ml Intake Oral 240 ml 1800 ml IV Total 1000 ml Output Urine Total 1600 ml # Voids 8 2 # Bowel Movements 1 5 Result Diagram: 07/20/17 0510 07/20/17 0510 Objective Remarks GENERAL: WDWN thin elderly white male in NAD SKIN: No rashes lesions. Cool and dry. EYES: PERRL. EOMI. No conjunctival injection or drainage. CARDIOVASCULAR: Regular rate and rhythm; no murmurs RESPIRATORY: Normal rate. CTAB. No crackles or wheezes. GASTROINTESTINAL: Abdomen soft, non-distended, non-tender. Normal bowel sounds MUSCULOSKELETAL: Extremities without asymmetry or calf pain. Grossly normal motor function and range of motion. NEUROLOGICAL: Awake and alert. Cranial nerves grossly intact. Grossly normal motor function and ROM. Normal speech. A/P Assessment and Plan 82 yo male with h/o depression, diverticulosis presenting with: Discharge Planning Will await EGD/Colonoscopy and base discharge on results Problem List: (1) GI (gastrointestinal bleed) ICD Codes: K92.2 - GI (gastrointestinal bleed) Status: Acute Plan: 07/19- Patient's rectal bleeding stopped overnight 07/20- No bleeding overnight; multiple bowel movements with colon prep Impression: Hemodynamically stable, with gross BRBPR and associated diarrhea. Most likely diagnosis is diverticular bleed given prior history Colonoscopy Nov 2016 showed old blood, diverticular disease Labs: Hgb 12 (07/18)-> 10.5 -> 10.9 (07/19) -patient typed/crossed for 4 U pRBC -Continue to monitor H/H -Protonix 40 mg IV Q12H -Transfuse for Hgb < 10 -GI consulted -Plan for EGD/Colonoscopy today -Clear liquid diet -IVF as below (2) Depression ICD Codes: F32.9 - Major depressive disorder, single episode, unspecified Status: Chronic Plan: Impression: Grieving from loss of several weeks previously Stable, continue home Paxil (3) T2DM (type 2 diabetes mellitus) ICD Codes: E11.9 - Type 2 diabetes mellitus without complications Plan: Diet-controlled -Check sugar AC/HS -Goal 140-180 -Add insulin coverage if indicated based on blood sugar (4) Essential hypertension ICD Codes: I10 - Essential (primary) hypertension Plan: Impression: At home reports taking HCTZ only if his BP is above 150 -Monitor BP -Will start HCTZ while inpatient; will Give daily HCTZ dose if persistently > 160 -Will add PRN hydralazine for refractory HTN (5) FEN/PPX Plan: Fluids: NS @ 100 cc/hr Elecs: Monitor and replete PRN Nutrition: NPO DVT: SCDs Code status: Full code Problem Qualifiers (1) GI (gastrointestinal bleed): Qualified Codes: K92.2 - Gastrointestinal hemorrhage, unspecified (2) Depression: Qualified Codes: F32.9 - Major depressive disorder, single episode, unspecified (3) T2DM (type 2 diabetes mellitus): Qualified Codes: E11.9 - Type 2 diabetes mellitus without complications Clint Clark MD R3 July 20, 2017 10:34
[2017-07-20] MEDS: SODIUM CHLOR 0.9% 1000 ML INJ 1,000 ML IV SCH ×2 (11:08→21:33)
[2017-07-20] MEDS ORDERED: LIDOCAINE HCL 1% PF 5 ML SYRINGE OTHER ONE (12:10)
[2017-07-20] MEDS ORDERED: PROPOFOL 200 MG/20 ML AMP IV ONE (12:10)
[2017-07-20] MEDS ORDERED: PHENYLEPH/NS 1000 MCG/10 ML SYR IV ONE (12:10)
[2017-07-20] MEDS ORDERED: ENALAPRILAT 1.25 MG/ML VIAL IV PUSH PRN (15:30)
[2017-07-21] VITALS: BP 163/75; PULSE 86; RESP 20; TEMP 97.8; O2SAT 99
[2017-07-21] MEDS: SODIUM CHLOR 0.9% 1000 ML INJ 1,000 ML IV SCH (06:07)
[2017-07-21 06:10] VITALS: BP 161/74; PULSE 79; RESP 18; O2SAT 96
[2017-07-21] MEDS: HYDROCHLOROTHIAZIDE 12.5 MG CAP PO PRN (06:14)
[2017-07-21 06:25] LABS: AUTOMATED NEUTROPHIL # 3.7 TH/MM3 (1.8-7.7); BASOPHIL % 0.6 % (0.0-2.0); EOSINOPHIL # 0.1 TH/MM3 (0-0.4); EOSINOPHIL % 1.1 % (0.0-4.0); HEMATOCRIT 31.7 % (39.0-51.0); HEMOGLOBIN 10.3 GM/DL (13.0-17.0); LYMPH % 22.5 % (9.0-44.0); LYMPHOCYTE # 1.3 TH/MM3 (1.0-4.8); MEAN CELL VOLUME 81.2 FL (80.0-100.0); MEAN CORPUSCULAR HEMOGLOBIN 26.4 PG (27.0-34.0); MEAN CORPUSCULAR HGB CONC 32.5 % (32.0-36.0); MEAN PLATELET VOLUME 8.7 FL (7.0-11.0); MONO % 10.9 % (0.0-8.0); MONOCYTE # 0.6 TH/MM3 (0-0.9); NEUT % 64.9 % (16.0-70.0); PLATELET COUNT 160 TH/MM3 (150-450); RED BLOOD COUNT 3.91 MIL/MM3 (4.50-5.90); RED CELL DISTRIBUTION WIDTH 16.3 % (11.6-17.2); WHITE BLOOD COUNT 5.6 TH/MM3 (4.0-11.0)
[2017-07-21 06:50] LABS: BICARBONATE 26.7 MEQ/L (21.0-32.0); CALCIUM 8.4 MG/DL (8.5-10.1); CREATININE 0.66 MG/DL (0.60-1.30)
[2017-07-21 08:00] VITALS: BP 190/86; PULSE 108; RESP 16; TEMP 97.9; O2SAT 100
[2017-07-21] MEDS: DOCUSATE SODIUM 50 MG/SENNA 8.6 MG TAB PO SCH (08:20)
[2017-07-21] MEDS: PARoxetine HCL 20 MG TAB PO SCH (08:20)
[2017-07-21] MEDS: PANTOPRAZOLE SODIUM 40 MG VIAL IV PUSH SCH (08:21)
[2017-07-21] MEDS: SODIUM CHLORIDE 0.9% FLUSH 10 ML FLUSH IV FLUSH SCH (08:21)
[2017-07-21] MEDS ORDERED: HYDROCHLOROTHIAZIDE 12.5 MG CAP PO ONE (08:45)
--- NOTE | 2017-07-21 09:49 | HHI.FPPN ---
Subjective Remarks Patient seen and examined this morning. No acute events overnight. Patient reports his blood pressure was high this morning after the nurse checked it. States he does feel like his heart is beating faster with the pressure. Denies any palpitations. Otherwise reports doing well. And thinks he needs to go up on his blood pressure medication. Denies any fever/chills, headaches, lightheadedness, chest pain, shortness of breath, abdominal pain, leg pain. (Ever Harding MD R2) Objective Vitals Vital Signs Date Time Temp Pulse Resp B/P (MAP) Pulse Ox O2 Delivery O2 Flow Rate FiO2 07/21/17 08:00 97.9 108 16 190/86 (120) 100 07/21/17 06:10 79 18 161/74 (103) 96 07/21/17 00:00 97.8 86 20 163/75 (104) 99 07/20/17 20:00 98.0 83 20 163/74 (103) 99 07/20/17 16:56 162/80 (107) 07/20/17 15:24 97.2 84 18 97 07/20/17 12:37 79 16 156/81 (106) 98 07/20/17 12:22 97.9 79 16 148/76 (100) 99 07/20/17 12:00 98.1 93 18 190/98 (128) 98 07/20/17 10:45 93 16 157/82 (107) 100 I/O 07/20/17 07/20/17 07/20/17 07/21/17 07/21/17 07/21/17 06:59 14:59 22:59 06:59 14:59 22:59 Intake Total 500 ml 1000 ml 1000 ml Output Total 300 ml Balance 200 ml 1000 ml 1000 ml IV Total 1000 ml 1000 ml Other 500 ml Output Urine Total 300 ml # Voids 2 4 5 # Bowel Movements 5 3 (Ever Harding MD R2) Result Diagram: 07/21/17 0607/21/17 06 Objective Remarks GENERAL: WDWN thin elderly white male in NAD SKIN: No rashes lesions. Cool and dry. CARDIOVASCULAR: Regular rate and rhythm. RESPIRATORY: Normal rate. CTAB. No crackles or wheezes. GASTROINTESTINAL: Abdomen soft, non-distended, non-tender. Normal bowel sounds MUSCULOSKELETAL: Extremities without asymmetry or calf pain. NEUROLOGICAL: Awake and alert. Grossly normal motor function and ROM. Normal speech. (Ever Harding MD R2) A/P Assessment and Plan 82 yo male with h/o depression, diverticulosis presenting with: Discharge Planning Possibly today (Ever Harding MD R2) Attending Attestation Patient seen and examined. Discussed with Dr. Harding. Agree with plan to discharge home. (Prevatte,Al Grayson Jr., MD) Problem List: (1) GI (gastrointestinal bleed) ICD Codes: K92.2 - GI (gastrointestinal bleed) Status: Acute Plan: 07/19- Patient's rectal bleeding stopped overnight 07/20- No bleeding overnight; multiple bowel movements with colon prep 07/21- no bleeding. Hgb stable Impression: Hemodynamically stable, with gross BRBPR and associated diarrhea. Most likely diagnosis is diverticular bleed given prior history Colonoscopy Nov 2016 showed old blood, diverticular disease Labs: Hgb 12 (07/18)-> 10.5. Now stable around 10.3 -Continue to monitor H/H -Protonix 40 mg IV Q12H -Transfuse for Hgb < 10 -GI consulted-s/p EGD & colonoscopy 07/20 -Showed gastritis, esophagitis -Colonic polyp removed and sent for path -Regular diet -IVF as below (2) Depression ICD Codes: F32.9 - Major depressive disorder, single episode, unspecified Status: Chronic Plan: Impression: Grieving from loss of several weeks previously Stable, continue home Paxil (3) T2DM (type 2 diabetes mellitus) ICD Codes: E11.9 - Type 2 diabetes mellitus without complications Plan: Diet-controlled -Check sugar AC/HS -Goal 140-180 -Add insulin coverage if indicated based on blood sugar (4) Essential hypertension ICD Codes: I10 - Essential (primary) hypertension Plan: Impression: At home reports taking HCTZ only if his BP is above 150. Mildly elevated overnight. -Monitor BP -Will increase HCTZ to 25mg daily -Will add PRN hydralazine for refractory HTN (5) FEN/PPX Plan: Fluids: NS @ 100 cc/hr Elecs: Monitor and replete PRN Nutrition: Heart healthy DVT: SCDs Code status: Full code (Ever Harding MD R2) Problem Qualifiers (1) GI (gastrointestinal bleed): Qualified Codes: K92.2 - Gastrointestinal hemorrhage, unspecified (2) Depression: Qualified Codes: F32.9 - Major depressive disorder, single episode, unspecified (3) T2DM (type 2 diabetes mellitus): Qualified Codes: E11.9 - Type 2 diabetes mellitus without complications Ever Harding MD R2 July 21, 2017 09:49 Al Rosen Jr., MD July 21, 2017 14:07
--- NOTE | 2017-07-21 10:37 | HHI.DCPOC ---
Discharge Care Plan Diagnosis: (1) Essential hypertension (2) GI (gastrointestinal bleed) Goals to Promote Your Health * To prevent worsening of your condition and complications * To maintain your health at the optimal level Directions to Meet Your Goals Take your medications as prescribed Follow your dietary instruction Follow activity as directed Keep your appointments as scheduled Take your immunizations and boosters as scheduled If your symptoms worsen call your PCP, if no PCP go to Urgent Care Center or Emergency Room Smoking is Dangerous to Your Health. Avoid second hand smoke Call the 24-hour hour crisis hotline for domestic abuse at Ever Harding MD R2 July 21, 2017 10:37
[2017-07-21] MEDS ORDERED: HYDR25TA5 PO (10:38)
[2017-07-21] MEDS ORDERED: PANT40TA3 PO (10:40)
--- NOTE | 2017-07-21 10:40 | HHI.DS ---
Discharge Summary Admission Date July 18, 2017 at 20:06 Discharge Date: July 21, 2017 Admitting Diagnosis Lower GI bleed (1) GI (gastrointestinal bleed) Diagnosis: Principal Plan: 07/19- Patient's rectal bleeding stopped overnight 07/20- No bleeding overnight; multiple bowel movements with colon prep 07/21- no bleeding. Hgb stable Impression: Hemodynamically stable, with gross BRBPR and associated diarrhea. Most likely diagnosis is diverticular bleed given prior history Colonoscopy Nov 2016 showed old blood, diverticular disease Labs: Hgb 12 (07/18)-> 10.5. Now stable around 10.3 -Continue to monitor H/H -Protonix 40 mg IV Q12H -Transfuse for Hgb < 10 -GI consulted-s/p EGD & colonoscopy 07/20 -Showed gastritis, esophagitis -Colonic polyp removed and sent for path -Regular diet -IVF as below ICD Codes: K92.2 - GI (gastrointestinal bleed) Status: Acute (2) Depression Diagnosis: Secondary Plan: Impression: Grieving from loss of several weeks previously Stable, continue home Paxil ICD Codes: F32.9 - Major depressive disorder, single episode, unspecified Status: Chronic (3) T2DM (type 2 diabetes mellitus) Diagnosis: Secondary Plan: Diet-controlled -Check sugar AC/HS -Goal 140-180 -Add insulin coverage if indicated based on blood sugar ICD Codes: E11.9 - Type 2 diabetes mellitus without complications (4) Essential hypertension Diagnosis: Secondary Plan: Impression: At home reports taking HCTZ only if his BP is above 150. Mildly elevated overnight. -Monitor BP -Will increase HCTZ to 25mg daily -Will add PRN hydralazine for refractory HTN ICD Codes: I10 - Essential (primary) hypertension (5) FEN/PPX Diagnosis: Secondary Plan: Fluids: NS @ 100 cc/hr Elecs: Monitor and replete PRN Nutrition: Heart healthy DVT: SCDs Code status: Full code Consultants GI Procedures EGD, Colonoscopy Brief History 82-year-old male with history of depression, diverticulosis presents with BRBPR and diarrhea. Initial hemoglobin was 12.0. GI was consulted. H&H's were trended. Patient was started on Protonix IV. GI recommended EGD and colonoscopy, which was performed. Patient remained stable and did not require any blood transfusions. Scope showed gastritis, esophagitis. Colonic polyp was removed and sent for pathology. Patient remained in stable condition. Blood pressure was a little elevated, increased his HCTZ to 25mg daily. Discharged in stable condition with follow-up with PCP. CBC/BMP: 07/21/17 0601 07/21/17 0601 Significant Findings Laboratory Tests Test 07/18/17 17:14 07/18/17 23:49 07/19/17 07:46 07/19/17 20:23 Hemoglobin 12.0 GM/DL (13.0-17.0) 10.5 GM/DL (13.0-17.0) 10.9 GM/DL (13.0-17.0) 10.0 GM/DL (13.0-17.0) Hematocrit 37.0 % (39.0-51.0) 32.3 % (39.0-51.0) 33.0 % (39.0-51.0) 30.9 % (39.0-51.0) Mean Corpuscular Hemoglobin 26.4 PG (27.0-34.0) 26.4 PG (27.0-34.0) 26.1 PG (27.0-34.0) Neutrophils (%) (Auto) 70.2 % (16.0-70.0) 70.5 % (16.0-70.0) Monocytes (%) (Auto) 9.4 % (0.0-8.0) Blood Urea Nitrogen 22 MG/DL (7-18) 20 MG/DL (7-18) Random Glucose 122 MG/DL (74-106) 115 MG/DL (74-106) Sodium Level 135 MEQ/L (136-145) Red Blood Count 4.13 MIL/MM3 (4.50-5.90) 3.83 MIL/MM3 (4.50-5.90) Test 07/20/17 05:10 07/21/17 06:01 Red Blood Count 3.96 MIL/MM3 (4.50-5.90) 3.91 MIL/MM3 (4.50-5.90) Hemoglobin 10.7 GM/DL (13.0-17.0) 10.3 GM/DL (13.0-17.0) Hematocrit 31.8 % (39.0-51.0) 31.7 % (39.0-51.0) Mean Corpuscular Hemoglobin 26.9 PG (27.0-34.0) 26.4 PG (27.0-34.0) Monocytes (%) (Auto) 10.6 % (0.0-8.0) 10.9 % (0.0-8.0) Creatinine 0.57 MG/DL (0.60-1.30) Calcium Level 8.4 MG/DL (8.5-10.1) PE at Discharge GENERAL: WDWN thin elderly white male in NAD SKIN: No rashes lesions. Cool and dry. CARDIOVASCULAR: Regular rate and rhythm. RESPIRATORY: Normal rate. CTAB. No crackles or wheezes. GASTROINTESTINAL: Abdomen soft, non-distended, non-tender. Normal bowel sounds MUSCULOSKELETAL: Extremities without asymmetry or calf pain. NEUROLOGICAL: Awake and alert. Grossly normal motor function and ROM. Normal speech. Pt Condition on Discharge: Stable Discharge Disposition: Discharge Home Discharge Instructions DIET: Follow Instructions for: As Tolerated, No Restrictions Activities you can perform: Regular-No Restrictions Follow up Referrals: PCP Follow-up - 1 Week with Ever Harding MD R2 PCP Follow-up New Medications: Hydrochlorothiazide (Hydrochlorothiazide) 25 Mg Tab 25 MG PO DAILY, #30 TAB 0 Refills Pantoprazole (Pantoprazole) 40 Mg Tab 40 MG PO DAILY for Reflux, #30 TAB 0 Refills Continued Medications: Hydrocodone-Acetaminophen (Hydrocodone-Acetaminophen) 10-325 mg Tab 1 TAB PO BID PRN for PAIN, #60 TAB 0 Refills Paroxetine (Paroxetine) 10 Mg Tab 10 MG PO DAILY, #30 TAB 2 Refills Discontinued Medications: Hydrochlorothiazide (Hydrochlorothiazide) 12.5 Mg Cap 12.5 MG PO DIRECTED, #30 CAP 0 Refills Pantoprazole (Pantoprazole) 20 Mg Tab 20 MG PO DAILY for Reflux, #30 TAB 6 Refills Ever Harding MD R2 July 21, 2017 10:40
== END 2017-07-21 12:11 | disposition home or self-care (01) ==
LOC: NEPE 16:33 → NEDA 19:16 → UNDOADMIN 19:16 → NEDA 20:06 → INTOOBSV 20:06 → N07A 20:20
PROVIDERS: ADMIT Family Medicine; ATTEND Family Medicine
DX: K44.9 Diaphragmatic hernia without obstruction or gangrene (principal); K29.50 Unspecified chronic gastritis without bleeding; K20.9 Esophagitis, unspecified; D12.3 Benign neoplasm of transverse colon; K64.4 Residual hemorrhoidal skin tags; K57.90 Diverticulosis of intestine, part unspecified, without perforation or abscess without bleeding; K64.8 Other hemorrhoids; K62.5 Hemorrhage of anus and rectum; E87.1 Hypo-osmolality and hyponatremia; D64.9 Anemia, unspecified; R63.4 Abnormal weight loss; I10 Essential (primary) hypertension; E11.9 Type 2 diabetes mellitus without complications; F32.9 Major depressive disorder, single episode, unspecified; Z87.891 Personal history of nicotine dependence; Z79.899 Other long term (current) drug therapy
CPT/HCPCS: 00813; 43239; 45380; 80048; 80053; 85014; 85018; 85025; 85027; 85610; 85730; 86850; 86900; 86901; 86920; 88305; 88312; 96361; 96374; 96375; 96376; 99285; C9113; G0378; J2370; J7030; J7120

== ENCOUNTER 2017-09-24 06:35 | Observation (INO) ==
--- NOTE | 2017-09-24 07:29 | ED ---
HPI General Chief complaint: GI Bleed Stated complaint: Rectal Bleed Time Seen by Provider: 09/24/17 07:11 History of Present Illness HPI Narrative: This is an 82-year-old with a history of previous GI bleed, presents today with complaints of rectal bleeding since midnight. Patient reports that he has had dark red and bright red blood coming from his rectum since midnight. He reports gassy feeling. He denies any true pain. Patient denies any shortness of breath or dizziness. He does report weakness when ambulating. He reports he has had this in the past and has had several colonoscopies that did not reveal any source or any cause. There is no reported nausea or vomiting. There is no other complaints. MD complaint: gross hematochezia Onset (ago): hour(s) Severity: moderate Relieving factors: none Exacerbating factors: none Context: history of GI bleed Associated symptoms: weakness Treatments Prior to Arrival: none Related Data Home Medications Medication Instructions Recorded Confirmed hydrochlorothiazide 25 mg PO DAILY 09/24/17 09/24/17 hydrocodone-acetaminophen 1 tab PO BID PRN 09/24/17 09/24/17 pantoprazole 40 mg PO DAILY 09/24/17 09/24/17 paroxetine HCl 10 mg PO DAILY 09/24/17 09/24/17 tamsulosin 09/24/17 09/24/17 Allergies Allergy/AdvReac Type Severity Reaction Status Date / Time No Known Drug Allergies Allergy none Verified 09/24/17 07:58 *MDRO Multi-Drug Resistant AdvReac Unknown ESBL Uncoded 07/18/17 17:13 Organism Review of Systems Except as stated in HPI: all other systems reviewed are negative Constitutional Denies chills and Denies fever(s) Eyes Reports system reviewed and no additional complaints, except as docu ENT Denies bleeding gums and Denies epistaxis Cardiovascular Denies chest pain and Denies palpitations Respiratory Denies chest congestion and Denies cough Gastrointestinal Denies melena, Reports hematochezia, Denies dyspepsia and Denies hematemesis Genitourinary Reports system reviewed and no additional complaints, except as docu Musculoskeletal Denies system reviewed and no additional complaints, except as docu Integumentary/Breasts Denies system reviewed and no additional complaints, except as docu Neurologic Denies confusion, Denies dizziness, Denies headache(s) and Reports weakness Endocrine Reports system reviewed and no additional complaints, except as docu Hematologic/Lymphatic Denies easy bleeding and Denies easy bruising PMFSH Medical History Medical History Depression (Acute) Diverticulitis (Acute) History of endoscopy (Acute) Hypertension (Acute) Incontinence of urine (Acute) Rectal bleeding (Acute) Sepsis (Acute) UTI (urinary tract infection) (Acute) Urethral stricture (Acute) Surgical History Surgical History History of colonoscopy (Acute) Social History Social History Substance History: No History of Abuse Second Hand Smoke Exposure: No Smoking Status: Former smoker Tobacco Type: Cigarettes How Often Do You Have a Drink Containing Alcohol: Monthly or less Recent Travel in [facility] within the Last 8 Weeks: No Recent Out of Country Travel within the Last 8 Weeks: No Exam Narrative Exam Narrative: GENERAL: Well-developed well-nourished male in no acute respiratory distress. SKIN: Focused skin assessment warm/dry. HEAD: Atraumatic. Normocephalic. EYES: No pale conjunctiva. No scleral icterus. No injection or drainage. ENT: No nasal bleeding or discharge. Mucous membranes pink and moist. NECK: Trachea midline. Supple. CARDIOVASCULAR: Regular rate and rhythm. No murmur appreciated. RESPIRATORY: No accessory muscle use. Clear to auscultation. Breath sounds equal bilaterally. GASTROINTESTINAL: Abdomen soft, non-tender, nondistended. Hepatic and splenic margins not palpable. MUSCULOSKELETAL: No obvious deformities. No clubbing. No cyanosis. No edema. NEUROLOGICAL: Awake and alert. No obvious cranial nerve deficits. Motor grossly within normal limits. Normal speech. PSYCHIATRIC: Appropriate mood and affect; insight and judgment normal. Course Initial Documented Vital Signs Temperature 97.6 F 09/24/17 07:02 Pulse Rate 89 09/24/17 07:02 Blood Pressure 162/78 H 09/24/17 07:02 Pulse Oximetry 98 09/24/17 07:02 Last Documented Vital Signs Temperature 98.2 F 09/26/17 08:00 Pulse Rate 101 H 09/26/17 08:00 Respiratory Rate 18 09/26/17 08:00 Blood Pressure 135/75 09/26/17 08:00 Pulse Oximetry 97 09/26/17 04:00 Medical Decision Making MDM Narrative Medical decision making narrative: 82-year-old male with history of previous GI bleed, presents today with complaint of GI bleed. Patient's had GI bleed 3 times in the past. He has had endoscope as well as colonoscopies that showed no obvious findings. Patient's H&H is stable. He will be admitted to the hospital. He had prachi maroon colored stool on rectal examination. Case was discussed with the admitting physician who agrees. Differential Diagnosis Differential Diagnosis: Lower GI bleed versus hemorrhoidal bleeding versus rectal fissure versus upper GI bleed Lab Data Result diagrams: 09/26/17 08:24 09/26/17 08:24 Lab Results 09/24/17 09/24/17 09/24/17 Range/Units 07:29 07:29 07:29 WBC 6.3 (4.0-11.0) th/mm3 RBC 4.50 (4.50-5.90) mil/mm3 Hgb 12.3 L (13.0-17.0) gm/dL Hct 37.9 L (39.0-51.0) % MCV 84.4 (80.0-100.0) fL MCH 27.4 (27.0-34.0) pg MCHC 32.5 (32.0-36.0) % RDW 23.5 H (11.6-17.2) % Plt Count 178 (150-450) th/mm3 MPV 8.2 (7.0-11.0) fL Neut % (Auto) 80.9 H (16.0-70.0) % Lymph % (Auto) 12.3 (9.0-44.0) % [place] % (Auto) 6.1 (0.0-8.0) % Eos % (Auto) 0.2 (0.0-4.0) % Baso % (Auto) 0.5 (0.0-2.0) % Neut # (Auto) 5.1 (1.8-7.7) th/mm3 Lymph # (Auto) 0.8 L (1.0-4.8) th/mm3 [place] # (Auto) 0.4 (0.0-0.9) th/mm3 Eos # (Auto) 0.0 (0.0-0.4) th/mm3 Baso # (Auto) 0.0 (0.0-0.2) th/mm3 WBC Differential . Differential Comment Auto diff final PT 10.9 (9.8-11.6) sec INR 1.1 Ratio APTT 27.9 (24.3-30.1) sec Sodium 131 L (136-145) meq/L Potassium 4.4 (3.5-5.1) meq/L Chloride 96 L (98-107) meq/L Carbon Dioxide 29.9 (21.0-32.0) meq/L Anion Gap 5 (5-15) meq/L BUN 19 H (7-18) mg/dL Creatinine 0.78 (0.60-1.30) mg/dL Estimated GFR Greater than 89 (>89) mL/min Random Glucose 142 H (74-106) mg/dL Calcium 9.6 (8.5-10.1) mg/dL Total Bilirubin 0.7 (0.2-1.0) mg/dL AST 22 (15-37) U/L ALT 19 (12-78) U/L Alkaline Phosphatase 62 (45-117) U/L Total Protein 7.1 (6.4-8.2) g/dL Albumin 4.5 (3.4-5.0) g/dL Blood Type Blood Type Recheck Antibody Screen 09/24/17 09/24/17 09/24/17 Range/Units 07:29 13:14 13:14 WBC 6.3 (4.0-11.0) th/mm3 RBC 4.35 L (4.50-5.90) mil/mm3 Hgb 12.1 L (13.0-17.0) gm/dL Hct 37.0 L (39.0-51.0) % MCV 85.1 (80.0-100.0) fL MCH 27.9 (27.0-34.0) pg MCHC 32.8 (32.0-36.0) % RDW 23.3 H (11.6-17.2) % Plt Count 188 (150-450) th/mm3 MPV 8.3 (7.0-11.0) fL Neut % (Auto) 79.9 H (16.0-70.0) % Lymph % (Auto) 14.0 (9.0-44.0) % [place] % (Auto) 5.6 (0.0-8.0) % Eos % (Auto) 0.1 (0.0-4.0) % Baso % (Auto) 0.4 (0.0-2.0) % Neut # (Auto) 5.0 (1.8-7.7) th/mm3 Lymph # (Auto) 0.9 L (1.0-4.8) th/mm3 [place] # (Auto) 0.4 (0.0-0.9) th/mm3 Eos # (Auto) 0.0 (0.0-0.4) th/mm3 Baso # (Auto) 0.0 (0.0-0.2) th/mm3 WBC Differential . Differential Comment Auto diff final PT (9.8-11.6) sec INR Ratio APTT (24.3-30.1) sec Sodium 132 L (136-145) meq/L Potassium 3.5 D (3.5-5.1) meq/L Chloride 97 L (98-107) meq/L Carbon Dioxide 30.1 (21.0-32.0) meq/L Anion Gap 5 (5-15) meq/L BUN 15 (7-18) mg/dL Creatinine 0.73 (0.60-1.30) mg/dL Estimated GFR Greater than 89 (>89) mL/min Random Glucose 112 H (74-106) mg/dL Calcium 9.2 (8.5-10.1) mg/dL Total Bilirubin (0.2-1.0) mg/dL AST (15-37) U/L ALT (12-78) U/L Alkaline Phosphatase (45-117) U/L Total Protein (6.4-8.2) g/dL Albumin (3.4-5.0) g/dL Blood Type O Positive Blood Type Recheck Required Antibody Screen Negative 09/24/17 09/24/17 09/25/17 Range/Units 19:30 19:30 01:02 WBC (4.0-11.0) th/mm3 RBC (4.50-5.90) mil/mm3 Hgb 11.3 L 11.1 L (13.0-17.0) gm/dL Hct 34.9 L 34.1 L (39.0-51.0) % MCV (80.0-100.0) fL MCH (27.0-34.0) pg MCHC (32.0-36.0) % RDW (11.6-17.2) % Plt Count (150-450) th/mm3 MPV (7.0-11.0) fL Neut % (Auto) (16.0-70.0) % Lymph % (Auto) (9.0-44.0) % [place] % (Auto) (0.0-8.0) % Eos % (Auto) (0.0-4.0) % Baso % (Auto) (0.0-2.0) % Neut # (Auto) (1.8-7.7) th/mm3 Lymph # (Auto) (1.0-4.8) th/mm3 [place] # (Auto) (0.0-0.9) th/mm3 Eos # (Auto) (0.0-0.4) th/mm3 Baso # (Auto) (0.0-0.2) th/mm3 WBC Differential Differential Comment PT (9.8-11.6) sec INR Ratio APTT (24.3-30.1) sec Sodium 132 L (136-145) meq/L Potassium 3.2 L (3.5-5.1) meq/L Chloride 96 L (98-107) meq/L Carbon Dioxide 26.9 (21.0-32.0) meq/L Anion Gap 9 (5-15) meq/L BUN 15 (7-18) mg/dL Creatinine 0.79 (0.60-1.30) mg/dL Estimated GFR Greater than 89 (>89) mL/min Random Glucose 157 H (74-106) mg/dL Calcium 8.5 (8.5-10.1) mg/dL Total Bilirubin (0.2-1.0) mg/dL AST (15-37) U/L ALT (12-78) U/L Alkaline Phosphatase (45-117) U/L Total Protein (6.4-8.2) g/dL Albumin (3.4-5.0) g/dL Blood Type Blood Type Recheck Antibody Screen 09/25/17 09/25/17 09/26/17 Range/Units 09:12 12:25 08:24 WBC 4.7 (4.0-11.0) th/mm3 RBC 4.33 L (4.50-5.90) mil/mm3 Hgb 11.4 L 11.2 L 12.0 L (13.0-17.0) gm/dL Hct 35.2 L 34.5 L 36.5 L (39.0-51.0) % MCV 84.3 (80.0-100.0) fL MCH 27.8 (27.0-34.0) pg MCHC 33.0 (32.0-36.0) % RDW 23.9 H (11.6-17.2) % Plt Count 168 (150-450) th/mm3 MPV 8.4 (7.0-11.0) fL Neut % (Auto) (16.0-70.0) % Lymph % (Auto) (9.0-44.0) % [place] % (Auto) (0.0-8.0) % Eos % (Auto) (0.0-4.0) % Baso % (Auto) (0.0-2.0) % Neut # (Auto) (1.8-7.7) th/mm3 Lymph # (Auto) (1.0-4.8) th/mm3 [place] # (Auto) (0.0-0.9) th/mm3 Eos # (Auto) (0.0-0.4) th/mm3 Baso # (Auto) (0.0-0.2) th/mm3 WBC Differential Differential Comment PT (9.8-11.6) sec INR Ratio APTT (24.3-30.1) sec Sodium (136-145) meq/L Potassium (3.5-5.1) meq/L Chloride (98-107) meq/L Carbon Dioxide (21.0-32.0) meq/L Anion Gap (5-15) meq/L BUN (7-18) mg/dL Creatinine (0.60-1.30) mg/dL Estimated GFR (>89) mL/min Random Glucose (74-106) mg/dL Calcium (8.5-10.1) mg/dL Total Bilirubin (0.2-1.0) mg/dL AST (15-37) U/L ALT (12-78) U/L Alkaline Phosphatase (45-117) U/L Total Protein (6.4-8.2) g/dL Albumin (3.4-5.0) g/dL Blood Type Blood Type Recheck Antibody Screen 07/25/18 Range/Units 08:24 WBC (4.0-11.0) th/mm3 RBC (4.50-5.90) mil/mm3 Hgb (13.0-17.0) gm/dL Hct (39.0-51.0) % MCV (80.0-100.0) fL MCH (27.0-34.0) pg MCHC (32.0-36.0) % RDW (11.6-17.2) % Plt Count (150-450) th/mm3 MPV (7.0-11.0) fL Neut % (Auto) (16.0-70.0) % Lymph % (Auto) (9.0-44.0) % [place] % (Auto) (0.0-8.0) % Eos % (Auto) (0.0-4.0) % Baso % (Auto) (0.0-2.0) % Neut # (Auto) (1.8-7.7) th/mm3 Lymph # (Auto) (1.0-4.8) th/mm3 [place] # (Auto) (0.0-0.9) th/mm3 Eos # (Auto) (0.0-0.4) th/mm3 Baso # (Auto) (0.0-0.2) th/mm3 WBC Differential Differential Comment PT (9.8-11.6) sec INR Ratio APTT (24.3-30.1) sec Sodium 136 (136-145) meq/L Potassium 3.7 (3.5-5.1) meq/L Chloride 101 (98-107) meq/L Carbon Dioxide 25.2 (21.0-32.0) meq/L Anion Gap 10 (5-15) meq/L BUN 7 (7-18) mg/dL Creatinine 0.50 L (0.60-1.30) mg/dL Estimated GFR Greater than 89 (>89) mL/min Random Glucose 123 H (74-106) mg/dL Calcium 8.7 (8.5-10.1) mg/dL Total Bilirubin (0.2-1.0) mg/dL AST (15-37) U/L ALT (12-78) U/L Alkaline Phosphatase (45-117) U/L Total Protein (6.4-8.2) g/dL Albumin (3.4-5.0) g/dL Blood Type Blood Type Recheck Antibody Screen Imaging Data Radiologist's impression: Abdomen X-Ray 09/24/17 07:19 CONCLUSION: No pneumoperitoneum. GI Bleed Scan Nuclear Medicine 09/24/17 13:28 CONCLUSION: No episodes of active GI bleeding observed. Discharge Plan Discharge Disposition Patient Disposition: 30 Still Patient Discharge Condition Condition: Stable Discharge Order Discharge Orders: Discharge Order (Routine); Ordered 09/26/17 Ordered By: Ever Harding Discharge Details Anticipated Discharge Date: 09/26/17 Diagnosis: GI bleed, Hypertension Physicians Team ED Provider: Kennedy Soto Primary Care Provider: Ever Harding Attending Provider: Jl Nogueira Other Providers: Javier Watkins Discharge Interventions Interventions: ED Discharge Assessment Last Done: 09/24/17 13:19 Vital Signs Last Done: 09/24/17 11:33 Status ED Status: Left Department Discharge Information Discharge Date/Time: 09/24/17 13:20
[2017-09-24] MEDS ORDERED: Sod Chloride 0.9% Inj 1,000 ML IV.CONT SCH (07:30)
[2017-09-24 07:41] LABS: Baso % (Auto) 0.5 % (0.0-2.0); Eos % (Auto) 0.2 % (0.0-4.0); Hematocrit 37.9 % (39.0-51.0); Hemoglobin 12.3 gm/dL (13.0-17.0); Lymph # (Auto) 0.8 th/mm3 (1.0-4.8); Lymph % (Auto) 12.3 % (9.0-44.0); Mean Corpuscular HGB Conc 32.5 % (32.0-36.0); Mean Corpuscular Hemoglobin 27.4 pg (27.0-34.0); Mean Corpuscular Volume 84.4 fL (80.0-100.0); Mean Platelet Volume 8.2 fL (7.0-11.0); Mono # (Auto) 0.4 th/mm3 (0.0-0.9); Mono % (Auto) 6.1 % (0.0-8.0); Neut # (Auto) 5.1 th/mm3 (1.8-7.7); Neut % (Auto) 80.9 % (16.0-70.0); Platelet Count 178 th/mm3 (150-450); Red Cell Distribution Width 23.5 % (11.6-17.2); White Blood Count 6.3 th/mm3 (4.0-11.0)
[2017-09-24 07:51] LABS: Activated Partial Thrombo Time 27.9 sec (24.3-30.1); INR 1.1 Ratio; Prothrombin Time 10.9 sec (9.8-11.6)
--- NOTE | 2017-09-24 07:57 | XR ---
EXAM DATE: 09/24/2017 7:42 AM EDT AGE/SEX: 82 years / Male INDICATIONS: Blood in stool since last night CLINICAL DATA: This is the patient's initial encounter. Patient reports that signs and symptoms have been present for 1 day and indicates a pain score of 0/10. MEDICAL/SURGICAL HISTORY: Gastrointestinal bleed. Facet arthritis. Hypertension. Prostatectom y. Tonsillectomy. COMPARISON: No prior exams available for comparison. FINDINGS: 2 upright views of the upper abdomen show gas filled loops of nondilated large and small bowel. No pn eumoperitoneum observed. Renal contours are obscured by stool particularly on the right. No organomeg jackelin observed. No abnormal calcifications appreciated. Lung bases are clear. CONCLUSION: No pneumoperitoneum. Electronically signed by: Darell Childers MD 09/24/2017 7:56 AM EDT
[2017-09-24 08:10] LABS: Alanine Aminotransferase 19 U/L (12-78); Albumin 4.5 g/dL (3.4-5.0); Anion Gap 5 meq/L (5-15); Aspartate Aminotransferase 22 U/L (15-37); Blood Urea Nitrogen 19 mg/dL (7-18); Calcium 9.6 mg/dL (8.5-10.1); Carbon Dioxide 29.9 meq/L (21.0-32.0); Chloride 96 meq/L (98-107); Glomerular Filtration Rate Greater Than 89 mL/min (>89); Glucose,Random 142 mg/dL (74-106); Potassium 4.4 meq/L (3.5-5.1); Sodium 131 meq/L (136-145)
[2017-09-24 08:13] LABS: Alkaline Phosphatase 62 U/L (45-117); Total Protein 7.1 g/dL (6.4-8.2)
--- NOTE | 2017-09-24 11:37 | P.HPFP ---
History of Present Illness Primary Care Physician: Ever Harding MD, R3 <JeroMariposay Ronni 09/25/17 11:36> Ana Padilla MD <Oren,Maryana E 09/24/17 13:27> Chief Complaint: Rectal bleeding <OrenMaryana E 09/24/17 13:27> History of Present Illness: Mr. Marquis is an 82yom with PMH of lower GI bleeds, worked up most recently on 07/20, who is presenting with bright red blood per rectum. He reports that starting at midnight he has had 5-6 episodes of bright red blood in his stool. The amount is lessening. He denies any abdominal pain, nausea, vomiting, dizziness, lightheadedness. His daughter reports that he has had some recent weight loss of about 5lbs in 2 weeks despite normal diet and exercise. Workup in July revealed gastritis, esophagitis, and a single polyp. <Oren,Maryana E 09/24/17 13:47> - Diagnosis (1) GI bleed (2) Hypertension (3) Chronic back pain (4) Depression (5) Urethral stricture (6) Nutrition, metabolism, and development symptoms <JeroJl 09/25/17 11:36> (1) GI bleed (2) Hypertension (3) Chronic back pain (4) Depression (5) Urethral stricture (6) Nutrition, metabolism, and development symptoms <OrenMaryana Bj 09/24/17 13:58> Review of Systems Constitutional: Reports chills, Reports fatigue, Reports weakness (Chronic in the legs), Denies fever(s) <Maryana Lott 09/24/17 11:55> Eyes: Denies blurry vision, Denies double vision, Denies floaters <Maryana Lott 09/24/17 11:55> Ears, Nose, Mouth, and Throat: Reports hearing loss (Chronic), Denies dizziness <Maryana Lott 09/24/17 11:55> Cardiovascular: Denies chest pain, Denies chest pain with activity, Denies fainting, Denies fast heart rate, Denies lightheadedness, Denies shortness of breath when lying down <Maryana Lott 09/24/17 11:55> Respiratory: Denies cough, Denies coughing up blood, Denies shortness of breath <Maryana Lott 09/24/17 11:55> Gastrointestinal: Reports bright, red blood in stools, Reports change in stools , Reports constipation (Has to manually initiate bowel movements), Denies abdominal pain, Denies bloating, Denies coffee ground vomit, Denies difficulty swallowing, Denies excessive passing of gas, Denies incontinent of stools, Denies nausea, Denies vomiting <Maryana Lott 09/24/17 11:55> Genitourinary: Reports urinary frequency, Denies blood in urine, Denies difficulty urinating, Denies urinary hesitancy <Maryana Lott 09/24/17 11:55 > Comments: Incontinence, chronic <Maryana Lott 09/24/17 11:55> Musculoskeletal: Reports back pain, Denies abnormal walking, Denies joint pain, Denies joint swelling <Maryana Lott 09/24/17 11:55> Neurologic: Denies dizziness, Denies fainting, Denies frequent falls <Maryana Lott 09/24/17 11:55> Psychiatric: Denies depression <Maryana Lott 09/24/17 11:55> Endocrine: Denies cold intolerance, Denies heat intolerance <Maryana Lott 09/24/17 11:55> PMFSH - History History Provided By: Patient <Maryana Lott 09/24/17 11:37> - Medical History Medical History: Medical History (Last Updated 09/24/17 @ 08:03 by Velma Coley, RN) History of endoscopy Hypertension Incontinence of urine Rectal bleeding Depression Diverticulitis Sepsis UTI (urinary tract infection) Urethral stricture <Jl Nogueira 09/25/17 11:36> Medical History (Last Updated 09/24/17 @ 08:03 by Velma Coley, RN) History of endoscopy Hypertension Incontinence of urine Rectal bleeding Depression Diverticulitis Sepsis UTI (urinary tract infection) Urethral stricture <Maryana Lott 09/24/17 11:37> - Surgical History Surgical History: Surgical History (Last Updated 09/24/17 @ 07:24 by Velma Coley, RN) History of colonoscopy <Jl Nogueira 09/25/17 11:36> Surgical History (Last Updated 09/24/17 @ 07:24 by Velma Coley RN) History of colonoscopy <OrenMaryana renteria 09/24/17 11:37> - Tobacco History Tobacco Use In Past 30 Days: No <OrenMaryana renteria 09/24/17 11:37> Smoking Status: Former smoker <Maryana Lott 09/24/17 11:37> Tobacco Type: Cigarettes <Maryana Lott 09/24/17 11:37> - Alcohol History How Often Do You Have a Drink Containing Alcohol: Monthly or less <Maryana Lott 09/24/17 11:37> - Substance Use History Substance History: No History of Abuse <Maryana Lott 09/24/17 11:37> - Travel History Recent Travel in the [facility] Within the Last 8 Weeks: No <Maryana Lott 11:37> Recent Travel Out of the Country Within the Last 8 Weeks: No <Maryana Lott 09/24/17 11:37> - Immunization History Tetanus Immunization: Unsure <Maryana Lott 09/24/17 11:37> Hx Influenza Vaccine This Season: Yes <Maryana Lott 09/24/17 11:37> Medications and Allergies Allergies Allergy/AdvReac Type Severity Reaction Status Date / Time No Known Drug Allergies Allergy none Verified 09/24/17 07:58 *MDRO Multi-Drug Resistant AdvReac Unknown ESBL Uncoded 07/18/17 17:13 Organism <Jl Nogueira 09/25/17 11:36> Home Medications Medication Instructions Recorded Confirmed Type hydrochlorothiazide 25 mg PO DAILY 09/24/17 09/24/17 History hydrocodone-acetaminophen 1 tab PO BID PRN 09/24/17 09/24/17 History pantoprazole 40 mg PO DAILY 09/24/17 09/24/17 History paroxetine HCl 10 mg PO DAILY 09/24/17 09/24/17 History tamsulosin [Flomax] 09/24/17 09/24/17 History <Jl Nogueira 09/25/17 11:36> Active Medications: Active Medications Hydrocodone Bitart/Acetaminophen ([place] 10/325) 1 tab PO BID PRN PRN Reason: PAIN 1-10 Hydrochlorothiazide (Hydrodiuril) 25 mg PO DAILY [facility] Last Admin: 09/25/17 09:16 Dose: 25 mg Sodium Chloride (Ns Inj) 1,000 mls @ 100 mls/hr IV.CONT .Q10H [facility] Last Infusion: 09/25/17 10:10 Dose: 0 mls/hr Ondansetron HCl (Zofran Odt) 4 mg PO Q6H PRN PRN Reason: NAUSEA Pantoprazole Sodium (Protonix Inj) 40 mg IV.PUSH DAILY [facility] Last Admin: 09/25/17 09:11 Dose: 40 mg Paroxetine HCl (Paxil) 10 mg PO DAILY [facility] Last Admin: 09/25/17 09:11 Dose: 10 mg Polyethylene Glycol/Electrolytes (Colyte Liq) 4,000 ml PO ONCE ONE Stop: 09/25/17 16:01 Sodium Chloride (Ns Flush) 2 ml IV.FLUSH BID [facility] Last Admin: 09/25/17 09:12 Dose: 2 ml Sodium Chloride (Ns Flush) 2 ml IV.FLUSH UNSCH PRN PRN Reason: FLUSH AFTER USING IV ACCESS Tamsulosin HCl (Flomax) 0.4 mg PO DAILY [facility] Last Admin: 09/25/17 09:11 Dose: 0.4 mg <Jl Nogueira - 09/25/17 11:36> Active Medications Sodium Chloride (Ns Inj) 1,000 mls @ 125 mls/hr IV.CONT .Q8H [facility] Last Admin: 09/24/17 07:39 Dose: 125 mls/hr Sodium Chloride (Ns Flush) 2 ml IV.FLUSH PRN PRN PRN Reason: FLUSH AFTER USING IV ACCESS <Maryana Lott - 09/24/17 11:37> Exam Vital signs: Vital Signs 09/24/17 13:15 09/24/17 13:48 09/24/17 13:49 Temperature 98.0 F Pulse Rate 76 86 Respiratory Rate 16 Blood Pressure 140/96 H 170/79 H 168/83 H Pulse Oximetry 99 98 09/24/17 13:50 09/24/17 16:00 09/24/17 20:00 Temperature 98.1 F 97.9 F Pulse Rate 84 89 Respiratory Rate 18 18 Blood Pressure 160/85 H 165/78 H 133/79 Pulse Oximetry 102 H 98 98 09/25/17 00:00 09/25/17 04:00 09/25/17 08:00 Temperature 97.9 F 98.2 F 97.7 F Pulse Rate 78 83 84 Respiratory Rate 17 16 16 Blood Pressure 126/63 139/67 165/81 H Pulse Oximetry 98 97 100 09/25/17 11:27 Temperature 98.2 F Pulse Rate 103 H Respiratory Rate 16 Blood Pressure 106/70 Pulse Oximetry 97 Intake & Output 09/24/17 09/25/17 09/25/17 18:59 06:59 18:59 Intake Total 1000 / 1000 Output Total 300 / 300 Balance 700 / 700 Weight 58.967 kg Intake: IV 1000 / 1000 NS Inj 1,000 ML @ 100 mls/hr IV 1000 / 1000 .CONT .Q10H [facility] Rx#:[id number] Output: Urine 300 / 300 Other: # Voids 1 Date of Last Bowel Movement 09/24/17 <Jl Nogueira - 09/25/17 11:36> Vital Signs 09/24/17 07:02 09/24/17 07:12 09/24/17 07:27 Temperature 97.6 F 97.6 F Pulse Rate 89 89 86 Respiratory Rate 16 Blood Pressure 162/78 H 213/92 H Pulse Oximetry 98 100 100 09/24/17 09:05 09/24/17 10:00 09/24/17 11:33 Temperature Pulse Rate 86 86 86 Respiratory Rate 20 16 16 Blood Pressure 207/98 H 167/84 H 175/86 H Pulse Oximetry 99 99 98 Intake & Output 09/23/17 09/24/17 09/24/17 18:59 06:59 18:59 Weight 58.967 kg <Maryana Lott - 09/24/17 11:37> Narrative: GENERAL: Thin appearing male, lying in bed SKIN: Warm and dry. HEAD: Normocephalic. EYES: No scleral icterus. No injection or drainage. OROPHARYNX: Mucus membranes moist, no lesions NECK: Supple, trachea midline. No JVD or lymphadenopathy. CARDIOVASCULAR: Regular rate and rhythm without murmurs, gallops, or rubs. Capillary refill <2sec RESPIRATORY: Breath sounds equal bilaterally. No accessory muscle use. GASTROINTESTINAL: Abdomen soft, non-tender, nondistended. No organomegaly palpated. MUSCULOSKELETAL: No cyanosis, or edema. BACK: Nontender without obvious deformity. <OrenMaryana E - 09/24/17 13:47> Results - Labs Result diagrams: 09/25/17 09:12 09/24/17 19:30 <Jl Nogueira - 09/25/17 11:36> Abnormal lab results 09/24/17 09/24/17 09/24/17 Range/Units 13:14 13:14 19:30 RBC 4.35 L (4.50-5.90) mil/mm3 Hgb 12.1 L 11.3 L (13.0-17.0) gm/dL Hct 37.0 L 34.9 L (39.0-51.0) % RDW 23.3 H (11.6-17.2) % Neut % (Auto) 79.9 H (16.0-70.0) % Lymph # (Auto) 0.9 L (1.0-4.8) th/mm3 Sodium 132 L (136-145) meq/L Potassium (3.5-5.1) meq/L Chloride 97 L (98-107) meq/L Random Glucose 112 H (74-106) mg/dL 09/24/17 09/25/17 09/25/17 Range/Units 19:30 01:02 09:12 RBC (4.50-5.90) mil/mm3 Hgb 11.1 L 11.4 L (13.0-17.0) gm/dL Hct 34.1 L 35.2 L (39.0-51.0) % RDW (11.6-17.2) % Neut % (Auto) (16.0-70.0) % Lymph # (Auto) (1.0-4.8) th/mm3 Sodium 132 L (136-145) meq/L Potassium 3.2 L (3.5-5.1) meq/L Chloride 96 L (98-107) meq/L Random Glucose 157 H (74-106) mg/dL Short CBC 09/24/17 09/24/17 09/25/17 Range/Units 13:14 19:30 01:02 WBC 6.3 (4.0-11.0) th/mm3 Hgb 12.1 L 11.3 L 11.1 L (13.0-17.0) gm/dL Hct 37.0 L 34.9 L 34.1 L (39.0-51.0) % Plt Count 188 (150-450) th/mm3 09/25/17 Range/Units 09:12 WBC (4.0-11.0) th/mm3 Hgb 11.4 L (13.0-17.0) gm/dL Hct 35.2 L (39.0-51.0) % Plt Count (150-450) th/mm3 [facility] 09/24/17 09/24/17 13:14 19:30 Sodium 132 L 132 L Potassium 3.5 D 3.2 L Chloride 97 L 96 L Carbon Dioxide 30.1 26.9 BUN 15 15 Creatinine 0.73 0.79 Calcium 9.2 8.5 <Jl Nogueira - 09/25/17 11:36> Abnormal lab results 09/24/17 09/24/17 Range/Units 07:29 07:29 Hgb 12.3 L (13.0-17.0) gm/dL Hct 37.9 L (39.0-51.0) % RDW 23.5 H (11.6-17.2) % Neut % (Auto) 80.9 H (16.0-70.0) % Lymph # (Auto) 0.8 L (1.0-4.8) th/mm3 Sodium 131 L (136-145) meq/L Chloride 96 L (98-107) meq/L BUN 19 H (7-18) mg/dL Random Glucose 142 H (74-106) mg/dL Short CBC 09/24/17 Range/Units 07:29 WBC 6.3 (4.0-11.0) th/mm3 Hgb 12.3 L (13.0-17.0) gm/dL Hct 37.9 L (39.0-51.0) % Plt Count 178 (150-450) th/mm3 [facility] 09/24/17 07:29 Sodium 131 L Potassium 4.4 Chloride 96 L Carbon Dioxide 29.9 BUN 19 H Creatinine 0.78 Calcium 9.6 Liver Function 09/24/17 Range/Units 07:29 Total Bilirubin 0.7 (0.2-1.0) mg/dL AST 22 (15-37) U/L ALT 19 (12-78) U/L Alkaline Phosphatase 62 (45-117) U/L Albumin 4.5 (3.4-5.0) g/dL <Maryana Lott 09/24/17 11:37> - Imaging Impressions GI Bleed Scan Nuclear Medicine 09/24/17 13:28 CONCLUSION: No episodes of active GI bleeding observed. <Jl Nogueira 09/25/17 11:36> Impressions Abdomen X-Ray 09/24/17 07:19 CONCLUSION: No pneumoperitoneum. <Maryana Lott 09/24/17 11:37> Caprini VTE Risk Assessment Caprini VTE Risk Assessment: Moderate/High Risk (score >= 2) <Maryana Lott 09/24/17 13:57> VTE Pharmacological Exception Reason: Hemorrhage <Maryana Lott 09/24/17 13: 57> Caprini Risk Assessment Model: Point Value = 1 Point Value = 2 Point Value = 3 Point Value = 5 Age 41-60 Minor surgery BMI > 25 kg/m2 Swollen legs Varicose veins or History of unexplained or recurrent spontaneous Oral contraceptives or hormone replacement Sepsis (< 1 month) Serious lung disease, including pneumonia (< 1 month) Abnormal pulmonary function Acute myocardial infarction Congestive heart failure (< 1 month) History of inflammatory bowel disease Medical patient at bed rest Age 61-74 Arthroscopic surgery Major open surgery (> 45 min) Laparoscopic surgery (> 45 min) Malignancy Confined to bed (> 72 hours) Immobilizing plaster cast Central venous access Age >= 75 History of VTE Family history of VTE Factor V Leiden Prothrombin [id number] Lupus anticoagulant Anticardiolipin antibodies Elevated serum homocysteine Heparin-induced thrombocytopenia Other congenital or acquired thrombophilia Stroke (< 1 month) Elective arthroplasty Hip, pelvis, or leg fracture Acute spinal cord injury (< 1 month) <Jl Nogueira 09/25/17 11:36> Point Value = 1 Point Value = 2 Point Value = 3 Point Value = 5 Age 41-60 Minor surgery BMI > 25 kg/m2 Swollen legs Varicose veins or History of unexplained or recurrent spontaneous Oral contraceptives or hormone replacement Sepsis (< 1 month) Serious lung disease, including pneumonia (< 1 month) Abnormal pulmonary function Acute myocardial infarction Congestive heart failure (< 1 month) History of inflammatory bowel disease Medical patient at bed rest Age 61-74 Arthroscopic surgery Major open surgery (> 45 min) Laparoscopic surgery (> 45 min) Malignancy Confined to bed (> 72 hours) Immobilizing plaster cast Central venous access Age >= 75 History of VTE Family history of VTE Factor V Leiden Prothrombin [id number] Lupus anticoagulant Anticardiolipin antibodies Elevated serum homocysteine Heparin-induced thrombocytopenia Other congenital or acquired thrombophilia Stroke (< 1 month) Elective arthroplasty Hip, pelvis, or leg fracture Acute spinal cord injury (< 1 month) <Maryana Lott - 09/24/17 13:47> Prophylaxis Regimen: Total Risk Factor Score Risk Level Prophylaxis Regimen 0-1 Low Early ambulation 2 Moderate Order ONE of the following: *Sequential Compression Device (SCD) *Heparin 5000 units SQ BID 3-4 Higher Order ONE of the following medications: *Heparin 5000 units SQ TID *Enoxaparin/Lovenox 40 mg SQ daily (WT < 150 kg, CrCl > 30 mL/min) *Enoxaparin/Lovenox 30 mg SQ daily (WT < 150 kg, CrCl > 10-29 mL/min) *Enoxaparin/Lovenox 30 mg SQ BID (WT < 150 kg, CrCl > 30 mL/min) AND/OR *Sequential Compression Device (SCD) 5 or more Highest Order ONE of the following medications: *Heparin 5000 units SQ TID (Preferred with Epidurals) *Enoxaparin/Lovenox 40 mg SQ daily (WT < 150 kg, CrCl > 30 mL/min) *Enoxaparin/Lovenox 30 mg SQ daily (WT < 150 kg, CrCl > 10-29 mL/min) *Enoxaparin/Lovenox 30 mg SQ BID (WT < 150 kg, CrCl > 30 mL/min) AND *Sequential Compression Device (SCD) <Jl Nogueira - 09/25/17 11:36> Total Risk Factor Score Risk Level Prophylaxis Regimen 0-1 Low Early ambulation 2 Moderate Order ONE of the following: *Sequential Compression Device (SCD) *Heparin 5000 units SQ BID 3-4 Higher Order ONE of the following medications: *Heparin 5000 units SQ TID *Enoxaparin/Lovenox 40 mg SQ daily (WT < 150 kg, CrCl > 30 mL/min) *Enoxaparin/Lovenox 30 mg SQ daily (WT < 150 kg, CrCl > 10-29 mL/min) *Enoxaparin/Lovenox 30 mg SQ BID (WT < 150 kg, CrCl > 30 mL/min) AND/OR *Sequential Compression Device (SCD) 5 or more Highest Order ONE of the following medications: *Heparin 5000 units SQ TID (Preferred with Epidurals) *Enoxaparin/Lovenox 40 mg SQ daily (WT < 150 kg, CrCl > 30 mL/min) *Enoxaparin/Lovenox 30 mg SQ daily (WT < 150 kg, CrCl > 10-29 mL/min) *Enoxaparin/Lovenox 30 mg SQ BID (WT < 150 kg, CrCl > 30 mL/min) AND *Sequential Compression Device (SCD) <Maryana Lott - 09/24/17 11:37> Assessment and Plan - Assessment (1) GI bleed Code(s): K92.2 - Gastrointestinal hemorrhage, unspecified Status: Acute (2) Hypertension Code(s): I10 - Essential (primary) hypertension Status: Chronic (3) Chronic back pain Code(s): M54.9 - Dorsalgia, unspecified; G89.29 - Other chronic pain Status: Chronic (4) Depression Code(s): F32.9 - Major depressive disorder, single episode, unspecified Status : Chronic (5) Urethral stricture Code(s): N35.9 - Urethral stricture, unspecified Status: Chronic (6) Nutrition, metabolism, and development symptoms Code(s): R63.8 - Other symptoms and signs concerning food and fluid intake Status: Acute <Jl Nogueira - 09/25/17 11:36> (1) GI bleed Code(s): K92.2 - Gastrointestinal hemorrhage, unspecified Status: Acute Plan: Patient has had multiple episodes of GI bleed within past year with relatively benign workup -H/H stable on admission, trend q6hr -Pantoprazole 40mg IV -Zofran PRN for nausea -GI consulted (Dr Watkins) recommend NM bleeding scan and colonoscopy tomorrow -NPO after midnight (2) Hypertension Code(s): I10 - Essential (primary) hypertension Status: Acute Plan: Continue home HCTZ 25mg daily (3) Chronic back pain Code(s): M54.9 - Dorsalgia, unspecified; G89.29 - Other chronic pain Status: Acute Plan: Continue home [place] 10/325 BID PRN for pain Monitor for signs of delirium (4) Depression Code(s): F32.9 - Major depressive disorder, single episode, unspecified Status : Acute Plan: Patient denies current depressive symptoms. Says his mood is improving. Continue home Paroxetine 10mg daily (5) Urethral stricture Code(s): N35.9 - Urethral stricture, unspecified Status: Acute Plan: Patient denies any hematuria States that the problem is not worsening Continue home flomax 0.4mg daily (6) Nutrition, metabolism, and development symptoms Code(s): R63.8 - Other symptoms and signs concerning food and fluid intake Status: Acute Plan: Fluids: NS at 100ml/hr Diet: Liquid diet, plans for NPO after midnight for procedure tomorrow GI Prophylaxis: Pantoprazole DVT prophylaxis: Held due to current bleed. <Maryana Lott - 09/24/17 13:58> - Attending Attestation The exam, history, and the medical decision-making described in the above note were completed with the assistance of the resident physician. I reviewed and agree with the findings presented. I attest that I had a [id number] encounter with the patient on the same day, and personally performed and documented my assessment and findings in the medical record. <Jl Nogueira - 09/25/17 11:36> <Maryana Lott - Last Filed: 09/24/17 13:58> (1) GI bleed Qualifiers: GI bleed type/associated pathology: anorectal hemorrhage Qualified Code(s): K62.5 - Hemorrhage of anus and rectum <Jl Nogueira - Last Filed: 09/25/17 11:36> (1) GI bleed Qualifiers: GI bleed type/associated pathology: anorectal hemorrhage Qualified Code(s): K62.5 - Hemorrhage of anus and rectum (2) Hypertension Qualifiers: Hypertension type: essential hypertension Qualified Code(s): I10 - Essential (primary) hypertension (3) Chronic back pain Qualifiers: Back pain location: low back pain Back pain laterality: unspecified Sciatica presence: unspecified whether sciatica present Qualified Code(s): M54.5 - Low back pain; G89.29 - Other chronic pain (4) Depression Qualifiers: Depression Type: major depressive disorder Major depression recurrence: unspecified whether recurrent Active/Remission status: remission status unspecified Qualified Code(s): F32.9 - Major depressive disorder, single episode, unspecified (5) Urethral stricture Qualifiers: Urethral stricture type: unspecified stricture type Qualified Code(s): N35.9 - Urethral stricture, unspecified <Maryana Lott - Last Filed: 09/24/17 13:58> (1) GI bleed Qualifiers: GI bleed type/associated pathology: anorectal hemorrhage Qualified Code(s): K62.5 - Hemorrhage of anus and rectum <Jl Nogueira - Last Filed: 09/25/17 11:36> (1) GI bleed Qualifiers: GI bleed type/associated pathology: anorectal hemorrhage Qualified Code(s): K62.5 - Hemorrhage of anus and rectum (2) Hypertension Qualifiers: Hypertension type: essential hypertension Qualified Code(s): I10 - Essential (primary) hypertension (3) Chronic back pain Qualifiers: Back pain location: low back pain Back pain laterality: unspecified Sciatica presence: unspecified whether sciatica present Qualified Code(s): M54.5 - Low back pain; G89.29 - Other chronic pain (4) Depression Qualifiers: Depression Type: major depressive disorder Major depression recurrence: unspecified whether recurrent Active/Remission status: remission status unspecified Qualified Code(s): F32.9 - Major depressive disorder, single episode, unspecified (5) Urethral stricture Qualifiers: Urethral stricture type: unspecified stricture type Qualified Code(s): N35.9 - Urethral stricture, unspecified
--- NOTE | 2017-09-24 13:37 | P.CONGI ---
History of Present Illness Consult date: 09/24/17 Consult reason: GI bleed Chief complaint: GI Bleed History of Present Illness: This is a 82 yo M with history of multiple episodes of rectal bleeding in the past that he has had extensive work up for over the past couple years. Pt presents to the ER today with complaints of rectal bleeding that began at midnight last night, states 10-12 episodes in the total with the last episode being approximately 20 minutes ago. Pt states the blood has subsided some since it first began but that he is now passing clots with some BRB. Denies any associated nausea, vomiting, abdominal pain. Has had some weight loss over the past couple months, despite no change in diet or activity. Last EGD in July of this year Gastritis in the antrum, esophagitis, and hiatal hernia. Last colonoscopy also in July --> Diverticulosis in the sigmoid and descending colon, old blood in sigmoid, descending colon and rectum. Diminutive polyp in transverse colon, Internal and external hemorrhoids. Pt also had a capsule endoscopy done in 2014 which was a normal exam. <Mara Cordero - Last Filed: 09/24/17 13:29> Review of Systems Gastrointestinal: Reports bright, red blood in stools, Reports loose stools, Denies abdominal pain, Denies black, tarry stools, Denies nausea, Denies vomiting <Mara Cordero - Last Filed: 09/24/17 13:29> PMFSH - History History Provided By: Patient - Medical History Medical History: Medical History (Last Updated 09/24/17 @ 08:03 by Velma Coley RN) History of endoscopy Hypertension Incontinence of urine Rectal bleeding Depression Diverticulitis Sepsis UTI (urinary tract infection) Urethral stricture - Surgical History Surgical History: Surgical History (Last Updated 09/24/17 @ 07:24 by Velma Coley RN) History of colonoscopy - Tobacco History Tobacco Use In Past 30 Days: No Smoking Status: Former smoker Tobacco Type: Cigarettes - Alcohol History How Often Do You Have a Drink Containing Alcohol: Monthly or less - Substance Use History Substance History: No History of Abuse - Travel History Recent Travel in the [place] Within the Last 8 Weeks: No Recent Travel Out of the Country Within the Last 8 Weeks: No - Immunization History Tetanus Immunization: Unsure Hx Influenza Vaccine This Season: Yes <Mara Cordero - Last Filed: 09/24/17 13:29> - Medical History Medical History: Medical History (Last Updated 09/24/17 @ 08:03 by Velma Coley RN) History of endoscopy Hypertension Incontinence of urine Rectal bleeding Depression Diverticulitis Sepsis UTI (urinary tract infection) Urethral stricture - Surgical History Surgical History: Surgical History (Last Updated 09/24/17 @ 07:24 by Velma Coley RN) History of colonoscopy <Javier Watkins - Last Filed: 09/24/17 17:32> Medications and Allergies Active Medications: Active Medications Sodium Chloride (Ns Inj) 1,000 mls @ 125 mls/hr IV.CONT .Q8H [facility] Last Admin: 09/24/17 07:39 Dose: 125 mls/hr Sodium Chloride (Ns Inj) 1,000 mls @ 100 mls/hr IV.CONT .Q10H [facility] Ondansetron HCl (Zofran Inj) 4 mg IV.PUSH Q6H PRN PRN Reason: NAUSEA Pantoprazole Sodium (Protonix Inj) 40 mg IV.PUSH DAILY [facility] Sodium Chloride (Ns Flush) 2 ml IV.FLUSH PRN PRN PRN Reason: FLUSH AFTER USING IV ACCESS Sodium Chloride (Ns Flush) 2 ml IV.FLUSH BID [facility] Sodium Chloride (Ns Flush) 2 ml IV.FLUSH PRN PRN PRN Reason: FLUSH AFTER USING IV ACCESS <Mara Cordero - Last Filed: 09/24/17 13:29> Active Medications: Active Medications Hydrocodone Bitart/Acetaminophen ([place] 10/325) 1 tab PO BID PRN PRN Reason: PAIN 1-10 Hydrochlorothiazide (Hydrodiuril) 25 mg PO DAILY [facility]LA[facility] Sodium Chloride (Ns Inj) 1,000 mls @ 100 mls/hr IV.CONT .Q10H [facility] Ondansetron HCl (Zofran Odt) 4 mg PO Q6H PRN PRN Reason: NAUSEA Pantoprazole Sodium (Protonix Inj) 40 mg IV.PUSH DAILY [facility] Paroxetine HCl (Paxil) 10 mg PO DAILY [facility] Sodium Chloride (Ns Flush) 2 ml IV.FLUSH BID [facility] Sodium Chloride (Ns Flush) 2 ml IV.FLUSH UNSCH PRN PRN Reason: FLUSH AFTER USING IV ACCESS Tamsulosin HCl (Flomax) 0.4 mg PO DAILY KYLAH <Javier Watkins - Last Filed: 09/24/17 17:32> Allergies Allergy/AdvReac Type Severity Reaction Status Date / Time No Known Drug Allergies Allergy none Verified 09/24/17 07:58 *MDRO Multi-Drug Resistant AdvReac Unknown ESBL Uncoded 07/18/17 17:13 Organism Home Medications Medication Instructions Recorded Confirmed Type hydrochlorothiazide 25 mg PO DAILY 09/24/17 09/24/17 History hydrocodone-acetaminophen 1 tab PO BID PRN 09/24/17 09/24/17 History pantoprazole 40 mg PO DAILY 09/24/17 09/24/17 History paroxetine HCl 10 mg PO DAILY 09/24/17 09/24/17 History tamsulosin [Flomax] 09/24/17 09/24/17 History Exam Vital signs: Vital Signs 09/24/17 07:02 09/24/17 07:12 09/24/17 07:27 Temperature 97.6 F 97.6 F Pulse Rate 89 89 86 Respiratory Rate 16 Blood Pressure 162/78 H 213/92 H Pulse Oximetry 98 100 100 09/24/17 09:05 09/24/17 10:00 09/24/17 11:33 Temperature Pulse Rate 86 86 86 Respiratory Rate 20 16 16 Blood Pressure 207/98 H 167/84 H 175/86 H Pulse Oximetry 99 99 98 09/24/17 13:15 Temperature Pulse Rate 76 Respiratory Rate Blood Pressure 140/96 H Pulse Oximetry Intake & Output 09/23/17 09/24/17 09/24/17 18:59 06:59 18:59 Weight 58.967 kg - Constitutional no acute distress - Routine HEENT Exam Head: Present: normocephalic, atraumatic - Routine Respiratory Exam Absent: accessory muscle use - Routine Abdominal Exam Present: soft, normoactive bowel sounds. Absent: tenderness - Routine Skin Exam Present: pallor - Routine Neurological Exam Present: alert, oriented X3 <Mara Cordero - Last Filed: 09/24/17 13:29> Vital signs: Vital Signs 09/24/17 07:02 09/24/17 07:12 09/24/17 07:27 Temperature 97.6 F 97.6 F Pulse Rate 89 89 86 Respiratory Rate 16 Blood Pressure 162/78 H 213/92 H Pulse Oximetry 98 100 100 09/24/17 09:05 09/24/17 10:00 09/24/17 11:33 Temperature Pulse Rate 86 86 86 Respiratory Rate 20 16 16 Blood Pressure 207/98 H 167/84 H 175/86 H Pulse Oximetry 99 99 98 09/24/17 13:15 09/24/17 13:48 09/24/17 13:49 Temperature 98.0 F Pulse Rate 76 86 Respiratory Rate 16 Blood Pressure 140/96 H 170/79 H 168/83 H Pulse Oximetry 99 98 09/24/17 13:50 Temperature Pulse Rate Respiratory Rate Blood Pressure 160/85 H Pulse Oximetry 102 H Intake & Output 09/23/17 09/24/17 09/24/17 18:59 06:59 18:59 Weight 58.967 kg <Javier Watkins - Last Filed: 09/24/17 17:32> Results - Labs CBC & Chem 7: 09/24/17 07:29 09/24/17 07:29 Labs: Laboratory Results - last 24 hr 09/24/17 09/24/17 09/24/17 07:29 07:29 07:29 WBC 6.3 RBC 4.50 Hgb 12.3 L Hct 37.9 L MCV 84.4 MCH 27.4 MCHC 32.5 RDW 23.5 H Plt Count 178 MPV 8.2 Neut % (Auto) 80.9 H Lymph % (Auto) 12.3 [place] % (Auto) 6.1 Eos % (Auto) 0.2 Baso % (Auto) 0.5 Neut # (Auto) 5.1 Lymph # (Auto) 0.8 L [place] # (Auto) 0.4 Eos # (Auto) 0.0 Baso # (Auto) 0.0 WBC Differential . Differential Comment Auto diff final PT 10.9 INR 1.1 APTT 27.9 Sodium 131 L Potassium 4.4 Chloride 96 L Carbon Dioxide 29.9 Anion Gap 5 BUN 19 H Creatinine 0.78 Estimated GFR Greater than 89 Random Glucose 142 H Calcium 9.6 Total Bilirubin 0.7 AST 22 ALT 19 Alkaline Phosphatase 62 Total Protein 7.1 Albumin 4.5 Blood Type Blood Type Recheck Antibody Screen 09/24/17 07:29 WBC RBC Hgb Hct MCV MCH MCHC RDW Plt Count MPV Neut % (Auto) Lymph % (Auto) [place] % (Auto) Eos % (Auto) Baso % (Auto) Neut # (Auto) Lymph # (Auto) [place] # (Auto) Eos # (Auto) Baso # (Auto) WBC Differential Differential Comment PT INR APTT Sodium Potassium Chloride Carbon Dioxide Anion Gap BUN Creatinine Estimated GFR Random Glucose Calcium Total Bilirubin AST ALT Alkaline Phosphatase Total Protein Albumin Blood Type O Positive Blood Type Recheck Required Antibody Screen Negative - Imaging Impressions Abdomen X-Ray 09/24/17 07:19 CONCLUSION: No pneumoperitoneum. <Mara Cordero - Last Filed: 09/24/17 13:29> - Labs CBC & Chem 7: 09/24/17 13:14 09/24/17 13:14 Labs: Laboratory Results - last 24 hr 09/24/17 09/24/17 09/24/17 07:29 07:29 07:29 WBC 6.3 RBC 4.50 Hgb 12.3 L Hct 37.9 L MCV 84.4 MCH 27.4 MCHC 32.5 RDW 23.5 H Plt Count 178 MPV 8.2 Neut % (Auto) 80.9 H Lymph % (Auto) 12.3 [place] % (Auto) 6.1 Eos % (Auto) 0.2 Baso % (Auto) 0.5 Neut # (Auto) 5.1 Lymph # (Auto) 0.8 L [place] # (Auto) 0.4 Eos # (Auto) 0.0 Baso # (Auto) 0.0 WBC Differential . Differential Comment Auto diff final PT 10.9 INR 1.1 APTT 27.9 Sodium 131 L Potassium 4.4 Chloride 96 L Carbon Dioxide 29.9 Anion Gap 5 BUN 19 H Creatinine 0.78 Estimated GFR Greater than 89 Random Glucose 142 H Calcium 9.6 Total Bilirubin 0.7 AST 22 ALT 19 Alkaline Phosphatase 62 Total Protein 7.1 Albumin 4.5 Blood Type Blood Type Recheck Antibody Screen 09/24/17 09/24/17 09/24/17 07:29 13:14 13:14 WBC 6.3 RBC 4.35 L Hgb 12.1 L Hct 37.0 L MCV 85.1 MCH 27.9 MCHC 32.8 RDW 23.3 H Plt Count 188 MPV 8.3 Neut % (Auto) 79.9 H Lymph % (Auto) 14.0 [place] % (Auto) 5.6 Eos % (Auto) 0.1 Baso % (Auto) 0.4 Neut # (Auto) 5.0 Lymph # (Auto) 0.9 L [place] # (Auto) 0.4 Eos # (Auto) 0.0 Baso # (Auto) 0.0 WBC Differential . Differential Comment Auto diff final PT INR APTT Sodium 132 L Potassium 3.5 D Chloride 97 L Carbon Dioxide 30.1 Anion Gap 5 BUN 15 Creatinine 0.73 Estimated GFR Greater than 89 Random Glucose 112 H Calcium 9.2 Total Bilirubin AST ALT Alkaline Phosphatase Total Protein Albumin Blood Type O Positive Blood Type Recheck Required Antibody Screen Negative - Imaging Impressions Abdomen X-Ray 09/24/17 07:19 CONCLUSION: No pneumoperitoneum. GI Bleed Scan Nuclear Medicine 09/24/17 13:28 CONCLUSION: No episodes of active GI bleeding observed. <Javier Watkins - Last Filed: 09/24/17 17:32> Assessment and Plan - Plan Assessment: - Rectal bleeding History of multiple episodes of rectal bleeding in the past that he has had extensive work up for over the past couple years. Pt presents to the ER today with complaints of rectal bleeding that began at midnight last night, states 10-12 episodes in the total with the last episode being approximately 20 minutes ago. Pt states the blood has subsided some since it first began but that he is now passing clots with some BRB. Denies any associated nausea, vomiting, abdominal pain. Has had some weight loss over the past couple months, despite no change in diet or activity. Despite multiple episodes of GIB, no source has been identified in procedures , noted to be likely secondary to diverticular bleed EGD in July of this year Gastritis in the antrum, esophagitis, and hiatal hernia. Pathology (stomach antrum) mild chronic active gastritis (distal esophagus) GE mucosa with moderate chronic inflammation suggestive of reflux) Colonoscopy also in July --> Diverticulosis in the sigmoid and descending colon , old blood in sigmoid, descending colon and rectum. Diminutive polyp in transverse colon, Internal and external hemorrhoids. Pathology (transverse colon polyp) adenomatous polyp Capsule endoscopy done in 2014 which was a normal exam. Plan: STAT NM bleeding scan Colonoscopy tomorrow Obtain consent Clear liquids after bleeding scan Golytely prep NPO after MN Timed H/H Transfuse as indicated Further recommendations to follow based on findings Pt has been seen and examined by myself and Dr. Watkins and this note is written on his behalf <Mara Cordero - Last Filed: 09/24/17 13:29> - Plan Patient was seen and examined, patient stated that he is not, bleeding scan was negative, hemoglobin stable, I think we can hold off on the colonoscopy since the patient had colonoscopy few month ago and most likely this is diverticular bleed and the patient is not very interested in having any more colonoscopies, continue monitoring H&H and packed RBC as needed, if he starts bleeding again then we might consider the colonoscopy <Javier Watkins - Last Filed: 09/24/17 17:32>
[2017-09-24 13:42] LABS: Baso % (Auto) 0.4 % (0.0-2.0); Eos % (Auto) 0.1 % (0.0-4.0); Hemoglobin 12.1 gm/dL (13.0-17.0); Lymph # (Auto) 0.9 th/mm3 (1.0-4.8); Mean Corpuscular HGB Conc 32.8 % (32.0-36.0); Mean Corpuscular Hemoglobin 27.9 pg (27.0-34.0); Mean Corpuscular Volume 85.1 fL (80.0-100.0); Mean Platelet Volume 8.3 fL (7.0-11.0); Mono # (Auto) 0.4 th/mm3 (0.0-0.9); Mono % (Auto) 5.6 % (0.0-8.0); Neut % (Auto) 79.9 % (16.0-70.0); Platelet Count 188 th/mm3 (150-450); Red Blood Count 4.35 mil/mm3 (4.50-5.90); Red Cell Distribution Width 23.3 % (11.6-17.2); White Blood Count 6.3 th/mm3 (4.0-11.0)
[2017-09-24] MEDS ORDERED: Heparin Central Flush 100 UNIT/ML 5 ML Vial IV.FLUSH ONE (13:56)
[2017-09-24 14:06] LABS: Anion Gap 5 meq/L (5-15); Blood Urea Nitrogen 15 mg/dL (7-18); Calcium 9.2 mg/dL (8.5-10.1); Carbon Dioxide 30.1 meq/L (21.0-32.0); Chloride 97 meq/L (98-107); Glomerular Filtration Rate Greater Than 89 mL/min (>89); Glucose,Random 112 mg/dL (74-106); Potassium 3.5 meq/L (3.5-5.1); Sodium 132 meq/L (136-145)
[2017-09-24] MEDS ORDERED: PEG 3350/E-Lyte Soln 4000 ML Bottle PO ONE (16:00)
--- NOTE | 2017-09-24 17:06 | NM ---
EXAM DATE: 09/24/2017 4:50 PM EDT AGE/SEX: 82 years / Male INDICATIONS: Rectal bleeding with blood in stool for one day. CLINICAL DATA: This is the patient's initial encounter. Patient reports that signs and symptoms have been present for 1 day and indicates a pain score of 0/10. MEDICAL/SURGICAL HISTORY: Hypertension. None. COMPARISON: No prior exams available for comparison. No external comparison. TECHNIQUE: Following the modified in vitro labeling of autologous red cells, dynamic continuous image s were acquired for two hours. ?? DOSE: 20.0 mCi Tc 99m Ultratag Labeled Red Blood Cells IV IMAGING TIME: 2 hr FINDINGS: Biodistribution: There is a very good labeling of red cells without significant uptake in the gastri c wall. There is good delineation of the blood pool of the spleen and abdominal vessels. Bleeding: No episodes of active GI bleeding are observed during two hours of continuous observation . CONCLUSION: No episodes of active GI bleeding observed. Electronically signed by: Sky Carreno MD 09/24/2017 5:04 PM EDT
[2017-09-24] MEDS: Sod Chloride 0.9% Inj 1,000 ML IV.CONT SCH (17:55)
[2017-09-24] MEDS: Pantoprazole Inj 40 MG Vial IV.PUSH SCH (17:55)
[2017-09-24 20:07] LABS: Hematocrit 34.9 % (39.0-51.0); Hemoglobin 11.3 gm/dL (13.0-17.0)
[2017-09-24 20:25] LABS: Anion Gap 9 meq/L (5-15); Blood Urea Nitrogen 15 mg/dL (7-18); Calcium 8.5 mg/dL (8.5-10.1); Carbon Dioxide 26.9 meq/L (21.0-32.0); Chloride 96 meq/L (98-107); Glomerular Filtration Rate Greater Than 89 mL/min (>89); Glucose,Random 157 mg/dL (74-106); Potassium 3.2 meq/L (3.5-5.1); Sodium 132 meq/L (136-145)
[2017-09-25 01:08] LABS: Hematocrit 34.1 % (39.0-51.0); Hemoglobin 11.1 gm/dL (13.0-17.0)
[2017-09-25] MEDS: Sod Chloride 0.9% Inj 1,000 ML IV.CONT SCH ×3 (01:15→22:07)
[2017-09-25] MEDS: Pantoprazole Inj 40 MG Vial IV.PUSH SCH (09:11)
[2017-09-25] MEDS: hydroCHLOROthiazide 25 MG Tablet PO SCH (09:16)
--- NOTE | 2017-09-25 09:31 | P.PNFP ---
Subjective Interval history: Mr. Marquis reports continued bright red blood in his stool. It is lessening in amount Results - Labs Result diagrams: 09/25/17 01:02 09/24/17 19:30 Abnormal lab results 09/24/17 09/24/17 09/24/17 Range/Units 13:14 13:14 19:30 RBC 4.35 L (4.50-5.90) mil/mm3 Hgb 12.1 L 11.3 L (13.0-17.0) gm/dL Hct 37.0 L 34.9 L (39.0-51.0) % RDW 23.3 H (11.6-17.2) % Neut % (Auto) 79.9 H (16.0-70.0) % Lymph # (Auto) 0.9 L (1.0-4.8) th/mm3 Sodium 132 L (136-145) meq/L Potassium (3.5-5.1) meq/L Chloride 97 L (98-107) meq/L Random Glucose 112 H (74-106) mg/dL 09/24/17 09/25/17 Range/Units 19:30 01:02 RBC (4.50-5.90) mil/mm3 Hgb 11.1 L (13.0-17.0) gm/dL Hct 34.1 L (39.0-51.0) % RDW (11.6-17.2) % Neut % (Auto) (16.0-70.0) % Lymph # (Auto) (1.0-4.8) th/mm3 Sodium 132 L (136-145) meq/L Potassium 3.2 L (3.5-5.1) meq/L Chloride 96 L (98-107) meq/L Random Glucose 157 H (74-106) mg/dL Short CBC 09/24/17 09/24/17 09/25/17 Range/Units 13:14 19:30 01:02 WBC 6.3 (4.0-11.0) th/mm3 Hgb 12.1 L 11.3 L 11.1 L (13.0-17.0) gm/dL Hct 37.0 L 34.9 L 34.1 L (39.0-51.0) % Plt Count 188 (150-450) th/mm3 BMP 09/24/17 09/24/17 13:14 19:30 Sodium 132 L 132 L Potassium 3.5 D 3.2 L Chloride 97 L 96 L Carbon Dioxide 30.1 26.9 BUN 15 15 Creatinine 0.73 0.79 Calcium 9.2 8.5 - Imaging Impressions GI Bleed Scan Nuclear Medicine 09/24/17 13:28 CONCLUSION: No episodes of active GI bleeding observed. Physical Exam Vital signs: Vital Signs 09/24/17 10:00 09/24/17 11:33 09/24/17 13:15 Temperature Pulse Rate 86 86 76 Respiratory Rate 16 16 Blood Pressure 167/84 H 175/86 H 140/96 H Pulse Oximetry 99 98 09/24/17 13:48 09/24/17 13:49 09/24/17 13:50 Temperature 98.0 F Pulse Rate 86 Respiratory Rate 16 Blood Pressure 170/79 H 168/83 H 160/85 H Pulse Oximetry 99 98 102 H 09/24/17 16:00 09/24/17 20:00 09/25/17 00:00 Temperature 98.1 F 97.9 F 97.9 F Pulse Rate 84 89 78 Respiratory Rate 18 18 17 Blood Pressure 165/78 H 133/79 126/63 Pulse Oximetry 98 98 98 09/25/17 04:00 09/25/17 08:00 Temperature 98.2 F 97.7 F Pulse Rate 83 84 Respiratory Rate 16 16 Blood Pressure 139/67 165/81 H Pulse Oximetry 97 100 Intake & Output 09/24/17 09/25/17 09/25/17 18:59 06:59 18:59 Intake Total 1000 / 1000 Output Total 300 / 300 Balance 700 / 700 Weight 58.967 kg Intake: IV 1000 / 1000 NS Inj 1,000 ML @ 100 mls/hr IV 1000 / 1000 .CONT .Q10H [facility]LA[facility] Rx#:[id number] Output: Urine 300 / 300 Other: # Voids 1 Date of Last Bowel Movement 09/24/17 Assessment and Plan - Assessment (1) GI bleed Code(s): K92.2 - Gastrointestinal hemorrhage, unspecified Status: Acute Plan: Patient has had multiple episodes of GI bleed within past year with relatively benign workup -H/H stable on admission, trend q6hr -Pantoprazole 40mg IV -Zofran PRN for nausea -GI consulted (Dr Watkins) recommend NM bleeding scan and colonoscopy tomorrow -NPO after midnight (2) Hypertension Code(s): I10 - Essential (primary) hypertension Status: Acute Plan: Continue home HCTZ 25mg daily (3) Chronic back pain Code(s): M54.9 - Dorsalgia, unspecified; G89.29 - Other chronic pain Status: Acute Plan: Continue home [place] 10/325 BID PRN for pain Monitor for signs of delirium (4) Depression Code(s): F32.9 - Major depressive disorder, single episode, unspecified Status : Acute Plan: Patient denies current depressive symptoms. Says his mood is improving. Continue home Paroxetine 10mg daily (5) Urethral stricture Code(s): N35.9 - Urethral stricture, unspecified Status: Acute Plan: Patient denies any hematuria States that the problem is not worsening Continue home flomax 0.4mg daily (6) Nutrition, metabolism, and development symptoms Code(s): R63.8 - Other symptoms and signs concerning food and fluid intake Status: Acute Plan: Fluids: NS at 100ml/hr Diet: Liquid diet, plans for NPO after midnight for procedure tomorrow GI Prophylaxis: Pantoprazole DVT prophylaxis: Held due to current bleed. (1) GI bleed Qualifiers: GI bleed type/associated pathology: anorectal hemorrhage Qualified Code(s): K62.5 - Hemorrhage of anus and rectum
[2017-09-25 10:00] LABS: Hematocrit 35.2 % (39.0-51.0); Hemoglobin 11.4 gm/dL (13.0-17.0)
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
--- NOTE | 2017-09-25 11:34 | P.PNFP ---
Subjective Interval history: On evaluation this morning, patient states that he just had an episode of passing clots associated with an increased amount of red blood per rectum. He states that he passed several clots with enough red blood to "turn the entire bowl red". He is uncomfortable with going home secondary to this new episode of red blood per rectum. He denies any associated symptoms such as abdominal pain or cramping, fevers/chills, lightheadedness or dizziness, palpitations, or nausea/vomiting. He states that prior to this episode, his bleeding had slowed significantly overnight and had opted for an outpatient colonoscopy, however would like to attempt having the colonoscopy prior to discharge if possible. In summary, this is an 82-year-old male with past medical history significant for recurrent GI bleeds. He last was worked up by GI in July 2017 with an EGD, colonoscopy, and a capsule pill study that were all relatively benign. This test did reveal gastritis with esophagitis as well as diverticula with a single polyp in the colon. He presents to the hospital with a 1 day history of 5-6 episodes of bright red blood in his bowel movements. Medical History (Last Updated 09/24/17 @ 08:03 by Velma Coley RN) History of endoscopy Hypertension Incontinence of urine Rectal bleeding Depression Diverticulitis Sepsis UTI (urinary tract infection) Urethral stricture Surgical History: Surgical History (Last Updated 09/24/17 @ 07:24 by Velma Coley RN) History of colonoscopy Results - Labs Result diagrams: 09/25/17 09:12 09/24/17 19:30 Abnormal lab results 09/24/17 09/24/17 09/24/17 Range/Units 13:14 13:14 19:30 RBC 4.35 L (4.50-5.90) mil/mm3 Hgb 12.1 L 11.3 L (13.0-17.0) gm/dL Hct 37.0 L 34.9 L (39.0-51.0) % RDW 23.3 H (11.6-17.2) % Neut % (Auto) 79.9 H (16.0-70.0) % Lymph # (Auto) 0.9 L (1.0-4.8) th/mm3 Sodium 132 L (136-145) meq/L Potassium (3.5-5.1) meq/L Chloride 97 L (98-107) meq/L Random Glucose 112 H (74-106) mg/dL 09/24/17 09/25/17 09/25/17 Range/Units 19:30 01:02 09:12 RBC (4.50-5.90) mil/mm3 Hgb 11.1 L 11.4 L (13.0-17.0) gm/dL Hct 34.1 L 35.2 L (39.0-51.0) % RDW (11.6-17.2) % Neut % (Auto) (16.0-70.0) % Lymph # (Auto) (1.0-4.8) th/mm3 Sodium 132 L (136-145) meq/L Potassium 3.2 L (3.5-5.1) meq/L Chloride 96 L (98-107) meq/L Random Glucose 157 H (74-106) mg/dL Short CBC 09/24/17 09/24/17 09/25/17 Range/Units 13:14 19:30 01:02 WBC 6.3 (4.0-11.0) th/mm3 Hgb 12.1 L 11.3 L 11.1 L (13.0-17.0) gm/dL Hct 37.0 L 34.9 L 34.1 L (39.0-51.0) % Plt Count 188 (150-450) th/mm3 09/25/17 Range/Units 09:12 WBC (4.0-11.0) th/mm3 Hgb 11.4 L (13.0-17.0) gm/dL Hct 35.2 L (39.0-51.0) % Plt Count (150-450) th/mm3 BMP 09/24/17 09/24/17 13:14 19:30 Sodium 132 L 132 L Potassium 3.5 D 3.2 L Chloride 97 L 96 L Carbon Dioxide 30.1 26.9 BUN 15 15 Creatinine 0.73 0.79 Calcium 9.2 8.5 - Imaging Impressions GI Bleed Scan Nuclear Medicine 09/24/17 13:28 CONCLUSION: No episodes of active GI bleeding observed. Physical Exam Vital signs: Vital Signs 09/24/17 11:33 09/24/17 13:15 09/24/17 13:48 Temperature 98.0 F Pulse Rate 86 76 86 Respiratory Rate 16 16 Blood Pressure 175/86 H 140/96 H 170/79 H Pulse Oximetry 98 99 09/24/17 13:49 09/24/17 13:50 09/24/17 16:00 Temperature 98.1 F Pulse Rate 84 Respiratory Rate 18 Blood Pressure 168/83 H 160/85 H 165/78 H Pulse Oximetry 98 102 H 98 09/24/17 20:00 09/25/17 00:00 09/25/17 04:00 Temperature 97.9 F 97.9 F 98.2 F Pulse Rate 89 78 83 Respiratory Rate 18 17 16 Blood Pressure 133/79 126/63 139/67 Pulse Oximetry 98 98 97 09/25/17 08:00 Temperature 97.7 F Pulse Rate 84 Respiratory Rate 16 Blood Pressure 165/81 H Pulse Oximetry 100 Intake & Output 09/24/17 09/25/17 09/25/17 18:59 06:59 18:59 Intake Total 1000 / 1000 Output Total 300 / 300 Balance 700 / 700 Weight 58.967 kg Intake: IV 1000 / 1000 NS Inj 1,000 ML @ 100 mls/hr IV 1000 / 1000 .CONT .Q10H [facility] Rx#:[id number] Output: Urine 300 / 300 Other: # Voids 1 Date of Last Bowel Movement 09/24/17 - Constitutional no acute distress, thin, cooperative - Routine HEENT Exam Head: Present: normocephalic - Routine Neck Exam Present: supple, full ROM. Absent: JVD - Routine Respiratory Exam Present: CTA bilaterally - Routine Cardiovascular Exam Present: RRR, S1, S2. Absent: murmur - Routine Abdominal Exam Present: soft, normoactive bowel sounds. Absent: tenderness, distended, rebound , guarding - Routine Extremities Exam Absent: cyanosis, clubbing, edema - Routine Skin Exam Present: intact - Routine Neurological Exam Present: alert, oriented X3 Assessment and Plan - Assessment (1) GI bleed Code(s): K92.2 - Gastrointestinal hemorrhage, unspecified Status: Acute Plan: GI has been consult and has evaluated patient, was prepping for discharge today but given recent increase in blood per rectum he will be prepped for colonoscopy tomorrow (09/26) -Clear liquid diet today and n.p.o. after midnight and plans for colonoscopy -Colonoscopy prep ordered per GI -Trending hemoglobin, most recent hemoglobin is 11.4 (admission hemoglobin 12.3) -Pantoprazole 40 mg IV daily -Zofran as needed nausea Nuclear medicine bleeding scan performed that showed no evidence of active bleeding (2) Hypertension Code(s): I10 - Essential (primary) hypertension Status: Chronic Plan: Monitor vitals and continue home blood pressure medication of hydrochlorothiazide 25 mg daily (3) Chronic back pain Code(s): M54.9 - Dorsalgia, unspecified; G89.29 - Other chronic pain Status: Chronic Plan: Stable and chronic issue, continue home [place] 10/325 mg p.o. twice daily as needed (4) Depression Code(s): F32.9 - Major depressive disorder, single episode, unspecified Status : Chronic Plan: No active depression symptoms, continue home fluoxetine 10 mg daily (5) Urethral stricture Code(s): N35.9 - Urethral stricture, unspecified Status: Chronic Plan: Asymptomatic, continue home Flomax 0.4 mg daily (6) Nutrition, metabolism, and development symptoms Code(s): R63.8 - Other symptoms and signs concerning food and fluid intake Status: Acute Plan: Fluids: NS at 100ml/hr Diet: Liquid diet, plans for NPO after midnight for procedure tomorrow GI Prophylaxis: Pantoprazole DVT prophylaxis: Held due to current bleed. (1) GI bleed Qualifiers: GI bleed type/associated pathology: anorectal hemorrhage Qualified Code(s): K62.5 - Hemorrhage of anus and rectum (2) Hypertension Qualifiers: Hypertension type: essential hypertension Qualified Code(s): I10 - Essential (primary) hypertension (3) Chronic back pain Qualifiers: Back pain location: low back pain Back pain laterality: unspecified Sciatica presence: unspecified whether sciatica present Qualified Code(s): M54.5 - Low back pain; G89.29 - Other chronic pain (4) Depression Qualifiers: Depression Type: major depressive disorder Major depression recurrence: unspecified whether recurrent Active/Remission status: remission status unspecified Qualified Code(s): F32.9 - Major depressive disorder, single episode, unspecified (5) Urethral stricture Qualifiers: Urethral stricture type: unspecified stricture type Qualified Code(s): N35.9 - Urethral stricture, unspecified
[2017-09-25 13:05] LABS: Hematocrit 34.5 % (39.0-51.0); Hemoglobin 11.2 gm/dL (13.0-17.0)
[2017-09-25] MEDS ORDERED: PEG 3350/E-Lyte Soln 4000 ML Bottle PO ONE (16:00)
[2017-09-26 01:48] VITALS: O2SAT 97
[2017-09-26] MEDS ORDERED: Chlorhexidine Gluconate 2% 1 Pack (2 Cloths) TOPICAL SCH (06:30)
[2017-09-26] MEDS ORDERED: Sodium Chlor 0.9% Inj 500 ML IV.SIG SCH (07:00)
[2017-09-26 08:42] VITALS: BP 135/75; PULSE 101; RESP 18; TEMP 98.2
[2017-09-26 08:54] LABS: Hematocrit 36.5 % (39.0-51.0); Mean Corpuscular Hemoglobin 27.8 pg (27.0-34.0); Mean Corpuscular Volume 84.3 fL (80.0-100.0); Mean Platelet Volume 8.4 fL (7.0-11.0); Platelet Count 168 th/mm3 (150-450); Red Blood Count 4.33 mil/mm3 (4.50-5.90); Red Cell Distribution Width 23.9 % (11.6-17.2); White Blood Count 4.7 th/mm3 (4.0-11.0)
[2017-09-26 09:25] LABS: Anion Gap 10 meq/L (5-15); Blood Urea Nitrogen 7 mg/dL (7-18); Calcium 8.7 mg/dL (8.5-10.1); Carbon Dioxide 25.2 meq/L (21.0-32.0); Chloride 101 meq/L (98-107); Glomerular Filtration Rate Greater Than 89 mL/min (>89); Glucose,Random 123 mg/dL (74-106); Potassium 3.7 meq/L (3.5-5.1); Sodium 136 meq/L (136-145)
[2017-09-26] MEDS: Sod Chloride 0.9% Inj 1,000 ML IV.CONT SCH (09:31)
[2017-09-26] MEDS: hydroCHLOROthiazide 25 MG Tablet PO SCH (09:32)
[2017-09-26] MEDS: Pantoprazole Inj 40 MG Vial IV.PUSH SCH (09:33)
--- NOTE | 2017-09-26 10:52 | P.PNFP ---
Subjective Interval history: Patient seen and examined this morning. No acute events overnight. Taking the bowel prep, endorses some bloody stool early last night, but then nothing after. Reports doing well this morning. No pain. Denies any dizziness, chest pain, SOB, abdominal pain, leg pain. <DemirashidEver Evens - 09/26/17 10:52> Results - Labs Result diagrams: 09/26/17 08:24 09/26/17 08:24 <Jl Nogueira - 09/26/17 15:11> Abnormal lab results 09/26/17 09/26/17 Range/Units 08:24 08:24 RBC 4.33 L (4.50-5.90) mil/mm3 Hgb 12.0 L (13.0-17.0) gm/dL Hct 36.5 L (39.0-51.0) % RDW 23.9 H (11.6-17.2) % Creatinine 0.50 L (0.60-1.30) mg/dL Random Glucose 123 H (74-106) mg/dL Short CBC 09/26/17 Range/Units 08:24 WBC 4.7 (4.0-11.0) th/mm3 Hgb 12.0 L (13.0-17.0) gm/dL Hct 36.5 L (39.0-51.0) % Plt Count 168 (150-450) th/mm3 BMP 09/26/17 08:24 Sodium 136 Potassium 3.7 Chloride 101 Carbon Dioxide 25.2 BUN 7 Creatinine 0.50 L Calcium 8.7 <Jl Nogueira - 09/26/17 15:11> Abnormal lab results 09/25/17 09/26/17 09/26/17 Range/Units 12:25 08:24 08:24 RBC 4.33 L (4.50-5.90) mil/mm3 Hgb 11.2 L 12.0 L (13.0-17.0) gm/dL Hct 34.5 L 36.5 L (39.0-51.0) % RDW 23.9 H (11.6-17.2) % Creatinine 0.50 L (0.60-1.30) mg/dL Random Glucose 123 H (74-106) mg/dL Short CBC 09/25/17 09/26/17 Range/Units 12:25 08:24 WBC 4.7 (4.0-11.0) th/mm3 Hgb 11.2 L 12.0 L (13.0-17.0) gm/dL Hct 34.5 L 36.5 L (39.0-51.0) % Plt Count 168 (150-450) th/mm3 [facility] 09/26/17 08:24 Sodium 136 Potassium 3.7 Chloride 101 Carbon Dioxide 25.2 BUN 7 Creatinine 0.50 L Calcium 8.7 <Ever Harding - 09/26/17 10:52> - Imaging Abdomen X-Ray 09/24/17 07:19 CONCLUSION: No pneumoperitoneum. GI Bleed Scan Nuclear Medicine 09/24/17 13:28 CONCLUSION: No episodes of active GI bleeding observed. <Ever Harding - 09/26/17 10:52> Physical Exam Vital signs: Vital Signs 09/25/17 16:00 09/25/17 20:00 09/25/17 21:15 Temperature 97.5 F L 97.7 F Pulse Rate 85 99 H 71 Respiratory Rate 18 16 Blood Pressure 153/76 H 164/77 H Pulse Oximetry 100 99 09/26/17 00:00 09/26/17 00:25 09/26/17 01:48 Temperature 97.9 F 97.9 F Pulse Rate 70 61 70 Respiratory Rate 14 14 Blood Pressure 137/68 137/68 Pulse Oximetry 97 97 09/26/17 04:00 09/26/17 08:00 Temperature 98.0 F 98.2 F Pulse Rate 67 101 H Respiratory Rate 14 18 Blood Pressure 120/69 135/75 Pulse Oximetry 97 Intake & Output 09/25/17 09/26/17 09/26/17 18:59 06:59 18:59 Intake Total 300 / 300 Balance 300 / 300 Intake: IV 300 / 300 LR 1000 mL Inj 1,000 ML @ 30 300 / 300 mls/hr IV.SIG .Q24H [facility] Rx#: [id number] Other: # Voids 3 Date of Last Bowel Movement 09/25/17 09/26/17 09/26/17 # Bowel Movements 2 <Jl Nogueira - 09/26/17 15:11> Vital Signs 09/25/17 11:27 09/25/17 14:25 09/25/17 16:00 Temperature 98.2 F 97.5 F L Pulse Rate 103 H 86 85 Respiratory Rate 16 18 Blood Pressure 106/70 153/76 H Pulse Oximetry 97 100 09/25/17 20:00 09/25/17 21:15 09/26/17 00:00 Temperature 97.7 F 97.9 F Pulse Rate 99 H 71 70 Respiratory Rate 16 14 Blood Pressure 164/77 H 137/68 Pulse Oximetry 99 97 09/26/17 00:25 09/26/17 01:48 09/26/17 04:00 Temperature 97.9 F 98.0 F Pulse Rate 61 70 67 Respiratory Rate 14 14 Blood Pressure 137/68 120/69 Pulse Oximetry 97 97 09/26/17 08:00 Temperature 98.2 F Pulse Rate 101 H Respiratory Rate 18 Blood Pressure 135/75 Pulse Oximetry Intake & Output 09/25/17 09/26/17 09/26/17 18:59 06:59 18:59 Other: # Voids 3 Date of Last Bowel Movement 09/25/17 09/26/17 09/26/17 # Bowel Movements 2 <Ever Harding - 09/26/17 10:52> Narrative: GENERAL: Lying in bed, NAD SKIN: Warm and dry. CARDIOVASCULAR: Regular rate and rhythm. RESPIRATORY: No accessory muscle use. Clear to auscultation. Breath sounds equal bilaterally. GASTROINTESTINAL: Abdomen soft, non-tender, nondistended. Hepatic and splenic margins not palpable. MUSCULOSKELETAL: Extremities without clubbing, cyanosis, or edema. No obvious deformities. NEUROLOGICAL: Awake and alert. Normal speech. PSYCHIATRIC: Appropriate mood and affect; insight and judgment normal. <Ever Hardign - 09/26/17 10:52> Assessment and Plan - Assessment (1) GI bleed Code(s): K92.2 - Gastrointestinal hemorrhage, unspecified Status: Acute (2) Hypertension Code(s): I10 - Essential (primary) hypertension Status: Chronic (3) Chronic back pain Code(s): M54.9 - Dorsalgia, unspecified; G89.29 - Other chronic pain Status: Chronic (4) Depression Code(s): F32.9 - Major depressive disorder, single episode, unspecified Status : Chronic (5) Urethral stricture Code(s): N35.9 - Urethral stricture, unspecified Status: Chronic (6) Nutrition, metabolism, and development symptoms Code(s): R63.8 - Other symptoms and signs concerning food and fluid intake Status: Acute <Jl Nogueira - 09/26/17 15:11> (1) GI bleed Code(s): K92.2 - Gastrointestinal hemorrhage, unspecified Status: Acute Plan: GI has been consulted and has evaluated patient, prepped overnight. colonoscopy today -n.p.o. after midnight for colonoscopy today -Colonoscopy prep ordered per GI -Trending hemoglobin, most recent hemoglobin is 12 (admission hemoglobin 12.3) -Pantoprazole 40 mg IV daily -Zofran as needed nausea Nuclear medicine bleeding scan performed that showed no evidence of active bleeding (2) Hypertension Code(s): I10 - Essential (primary) hypertension Status: Chronic Plan: Monitor vitals and continue home blood pressure medication of hydrochlorothiazide 25 mg daily (3) Chronic back pain Code(s): M54.9 - Dorsalgia, unspecified; G89.29 - Other chronic pain Status: Chronic Plan: Stable and chronic issue, continue home [place] 10/325 mg p.o. twice daily as needed (4) Depression Code(s): F32.9 - Major depressive disorder, single episode, unspecified Status : Chronic Plan: No active depression symptoms, continue home fluoxetine 10 mg daily (5) Urethral stricture Code(s): N35.9 - Urethral stricture, unspecified Status: Chronic Plan: Asymptomatic, continue home Flomax 0.4 mg daily (6) Nutrition, metabolism, and development symptoms Code(s): R63.8 - Other symptoms and signs concerning food and fluid intake Status: Acute Plan: Fluids: NS at 100ml/hr Diet: NPO after midnight for procedure today; resume diet after procedure GI Prophylaxis: Pantoprazole DVT prophylaxis: Held due to current bleed. SCDs <Ever Harding - 09/26/17 10:47> - Assessment and Plan 82 y/o male with hx of diverticulosis presents with active bleeding. GI consulted. Undergoing colonoscopy to further evaluate. Hemoglobin stable. <Ever Harding - 09/26/17 10:52> - Attending Attestation Patient examined independently and case discussed with resident physician I have read the above note and agree with the assessment/plan as discussed with me I was involved in all medical decision making for this patient No further episodes of bloody bowel movements after initiating his colonoscopy prep last night -Patient has gone for colonoscopy, awaiting GI recommendations -Possible discharge today as hemoglobin has remained stable Jl Nogueira MD <Jl Nogueira - 09/26/17 15:11> <Ever Harding - Last Filed: 09/26/17 10:47> (1) GI bleed Qualifiers: GI bleed type/associated pathology: anorectal hemorrhage Qualified Code(s): K62.5 - Hemorrhage of anus and rectum (2) Hypertension Qualifiers: Hypertension type: essential hypertension Qualified Code(s): I10 - Essential (primary) hypertension (3) Chronic back pain Qualifiers: Back pain location: low back pain Back pain laterality: unspecified Sciatica presence: unspecified whether sciatica present Qualified Code(s): M54.5 - Low back pain; G89.29 - Other chronic pain (4) Depression Qualifiers: Depression Type: major depressive disorder Major depression recurrence: unspecified whether recurrent Active/Remission status: remission status unspecified Qualified Code(s): F32.9 - Major depressive disorder, single episode, unspecified (5) Urethral stricture Qualifiers: Urethral stricture type: unspecified stricture type Qualified Code(s): N35.9 - Urethral stricture, unspecified <Jl Nogueira - Last Filed: 09/26/17 15:11> (1) GI bleed Qualifiers: GI bleed type/associated pathology: anorectal hemorrhage Qualified Code(s): K62.5 - Hemorrhage of anus and rectum (2) Hypertension Qualifiers: Hypertension type: essential hypertension Qualified Code(s): I10 - Essential (primary) hypertension (3) Chronic back pain Qualifiers: Back pain location: low back pain Back pain laterality: unspecified Sciatica presence: unspecified whether sciatica present Qualified Code(s): M54.5 - Low back pain; G89.29 - Other chronic pain (4) Depression Qualifiers: Depression Type: major depressive disorder Major depression recurrence: unspecified whether recurrent Active/Remission status: remission status unspecified Qualified Code(s): F32.9 - Major depressive disorder, single episode, unspecified (5) Urethral stricture Qualifiers: Urethral stricture type: unspecified stricture type Qualified Code(s): N35.9 - Urethral stricture, unspecified <Ever Harding - Last Filed: 09/26/17 10:47> (1) GI bleed Qualifiers: GI bleed type/associated pathology: anorectal hemorrhage Qualified Code(s): K62.5 - Hemorrhage of anus and rectum (2) Hypertension Qualifiers: Hypertension type: essential hypertension Qualified Code(s): I10 - Essential (primary) hypertension (3) Chronic back pain Qualifiers: Back pain location: low back pain Back pain laterality: unspecified Sciatica presence: unspecified whether sciatica present Qualified Code(s): M54.5 - Low back pain; G89.29 - Other chronic pain (4) Depression Qualifiers: Depression Type: major depressive disorder Major depression recurrence: unspecified whether recurrent Active/Remission status: remission status unspecified Qualified Code(s): F32.9 - Major depressive disorder, single episode, unspecified (5) Urethral stricture Qualifiers: Urethral stricture type: unspecified stricture type Qualified Code(s): N35.9 - Urethral stricture, unspecified <Jl Nogueira - Last Filed: 09/26/17 15:11> (1) GI bleed Qualifiers: GI bleed type/associated pathology: anorectal hemorrhage Qualified Code(s): K62.5 - Hemorrhage of anus and rectum (2) Hypertension Qualifiers: Hypertension type: essential hypertension Qualified Code(s): I10 - Essential (primary) hypertension (3) Chronic back pain Qualifiers: Back pain location: low back pain Back pain laterality: unspecified Sciatica presence: unspecified whether sciatica present Qualified Code(s): M54.5 - Low back pain; G89.29 - Other chronic pain (4) Depression Qualifiers: Depression Type: major depressive disorder Major depression recurrence: unspecified whether recurrent Active/Remission status: remission status unspecified Qualified Code(s): F32.9 - Major depressive disorder, single episode, unspecified (5) Urethral stricture Qualifiers: Urethral stricture type: unspecified stricture type Qualified Code(s): N35.9 - Urethral stricture, unspecified
[2017-09-26] MEDS ORDERED: Lidocaine PF 1% Inj 5 ML Syringe INFILTRATN ONE (12:00)
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
--- NOTE | 2017-09-26 14:43 | P.DS ---
Date of admission: 09/24/17 11:38 Primary care physician: Ever Harding MD, R3 Attending physician on discharge: Jl Nogueira Anticipated date of discharge: 09/26/17 Brief History from admission: Mr. Marquis is an 82yom with PMH of lower GI bleeds, worked up most recently on 07/20, who is presenting with bright red blood per rectum. He reports that starting at midnight he has had 5-6 episodes of bright red blood in his stool. The amount is lessening. He denies any abdominal pain, nausea, vomiting, dizziness, lightheadedness. His daughter reports that he has had some recent weight loss of about 5lbs in 2 weeks despite normal diet and exercise. Workup in July revealed gastritis, esophagitis, and a single polyp. DS: Diagnosis - Discharge Diagnosis (1) GI bleed Status: Acute (2) Hypertension Status: Chronic (3) Chronic back pain Status: Chronic (4) Depression Status: Chronic (5) Urethral stricture Status: Chronic (6) Nutrition, metabolism, and development symptoms Status: Acute DS: Summary Hospital Course: 82-year-old male with past medical history of hypertension, chronic back pain, depression who presented with recurrent GI bleed. He presented with bright red blood per rectum. Patient has had multiple colonoscopies in the past, without any success. Hemoglobin was stable around 12 and was trended. Patient started on IV pantoprazole and GI was consulted. Nuclear medicine bleeding scan was performed, which did not show any sign of active bleeding. Colonoscopy was then performed with patient, which did show diverticulosis. Hemoglobin remained stable with no more rectal bleeding and patient was discharged in stable condition. - Time Spent with Patient Total time spent providing and/or coordinating discharge services: - Quality: VTE Deep Vein Thrombosis/Pulmonary Embolism Present on Admission: No Exam Vital signs: Vital Signs 09/25/17 16:00 09/25/17 20:00 09/25/17 21:15 Temperature 97.5 F L 97.7 F Pulse Rate 85 99 H 71 Respiratory Rate 18 16 Blood Pressure 153/76 H 164/77 H Pulse Oximetry 100 99 09/26/17 00:00 09/26/17 00:25 09/26/17 01:48 Temperature 97.9 F 97.9 F Pulse Rate 70 61 70 Respiratory Rate 14 14 Blood Pressure 137/68 137/68 Pulse Oximetry 97 97 09/26/17 04:00 09/26/17 08:00 Temperature 98.0 F 98.2 F Pulse Rate 67 101 H Respiratory Rate 14 18 Blood Pressure 120/69 135/75 Pulse Oximetry 97 Intake & Output 09/25/17 09/26/17 09/26/17 18:59 06:59 18:59 Intake Total 300 / 300 Balance 300 / 300 Intake: IV 300 / 300 LR 1000 mL Inj 1,000 ML @ 30 300 / 300 mls/hr IV.SIG .Q24H KYLAH Rx#: [id number] Other: # Voids 3 Date of Last Bowel Movement 09/25/17 09/26/17 09/26/17 # Bowel Movements 2 Narrative: GENERAL: NAD, lying in bed SKIN: Warm and dry. CARDIOVASCULAR: Regular rate and rhythm. RESPIRATORY: No accessory muscle use. Clear to auscultation. Breath sounds equal bilaterally. GASTROINTESTINAL: Abdomen soft, non-tender, nondistended. Hepatic and splenic margins not palpable. MUSCULOSKELETAL: Extremities without clubbing, cyanosis, or edema. No obvious deformities. NEUROLOGICAL: Awake and alert. No obvious cranial nerve deficits. Normal speech. PSYCHIATRIC: Appropriate mood and affect; insight and judgment normal. Results Procedures completed during hospitalization: Colonoscopy Labs on day of discharge: Labs from last 24 hours 09/26/17 09/26/17 08:24 08:24 WBC 4.7 RBC 4.33 L Hgb 12.0 L Hct 36.5 L MCV 84.3 MCH 27.8 MCHC 33.0 RDW 23.9 H Plt Count 168 MPV 8.4 Sodium 136 Potassium 3.7 Chloride 101 Carbon Dioxide 25.2 Anion Gap 10 BUN 7 Creatinine 0.50 L Estimated GFR Greater than 89 Random Glucose 123 H Calcium 8.7 - Impressions ITS Impressions Abdomen X-Ray 09/24/17 07:19 CONCLUSION: No pneumoperitoneum. GI Bleed Scan Nuclear Medicine 09/24/17 13:28 CONCLUSION: No episodes of active GI bleeding observed. Discharge Plan - Discharge Disposition Patient Disposition: 01 Discharge Home - Discharge Condition Condition: Stable - Discharge Order Discharge Orders: Discharge Order (Routine); Ordered 09/26/17 Ordered By: Ever Harding - Discharge Details Anticipated Discharge Date: 09/26/17 - Physicians Team Primary Care Provider: Ever Harding Attending Provider: Jl Nogueira Other Providers: Javier Watkins MD
== END 2017-09-26 15:00 | disposition home or self-care (01) ==
LOC: NEDA 06:35 → NEPHCDU 06:35 → NEPE 06:35 → NEPHCDU 13:16
PROVIDERS: ADMIT Family Medicine; ATTEND Family Medicine
PROC: COLONOS (2017-09-26 11:53)